=== PATIENT | female | born 1985 | race Caucasian/White ===

== ENCOUNTER → 2018-04-23 15:47 | Outpatient (CLI) | payer OTHER, MEDICAID, SELFPAY ==
[2018-04-23 16:10] LABS: Glucose,1 Hr (Glucola) 166 mg/dL (80-140)
[2018-04-23 16:29] LABS: HCT 37.1 % (36.0-46.0); HGB 12.1 g/dL (12.0-15.5); Mean Corp. HGB Concentration 32.6 g/dL (32.0-36.0); Mean Corpuscular Hemoglobin 29.7 pg (27.0-33.0); Mean Corpuscular Volume 91.2 fL (80-95); Mean Platelet Volume 11.8 fL (8.0-11.0); Platelet Count 240 x1000/uL (130-400); RBC 4.07 m/cumm (4.00-5.20); RBC Distribution Width 12.9 % (11.7-14.6); White Blood Cell Count 8.67 k/cumm (4.4-10.8)
== END ==
PROVIDERS: Obstetrics & Gynecology Gynecology; PCP Internal Medicine; Visit Provider Advanced Practice Midwife
DX: Z34.82 Encounter for supervision of other normal pregnancy, second trimester (principal)
CPT/HCPCS: 36415; 82950; 85027

== ENCOUNTER 2018-04-29 07:46 | Outpatient (CLI) | payer OTHER, MEDICAID, SELFPAY ==
[2018-04-29 09:46] LABS: Glucose 1 Hour 112 mg/dL
[2018-04-29 12:23] LABS: Glucose 3 Hour 73 mg/dL
== END 2018-04-29 07:47 ==
PROVIDERS: PCP Internal Medicine; Visit Provider Advanced Practice Midwife
DX: Z34.93 Encounter for supervision of normal pregnancy, unspecified, third trimester (principal)
CPT/HCPCS: 36410; 82951

== ENCOUNTER 2018-06-07 12:29 | Outpatient (REF) | payer OTHER, MEDICAID, SELFPAY | END 2018-06-07 12:49 | LOC: LBN 12:29 | PROVIDERS: PCP Internal Medicine; Visit Provider Obstetrics & Gynecology Gynecology | DX: Z34.93 Encounter for supervision of normal pregnancy, unspecified, third trimester (principal); Z36.85 Encounter for antenatal screening for Streptococcus B | CPT/HCPCS: 87081 ==

== ENCOUNTER 2018-06-09 13:06 | Observation (INO) | payer OTHER, MEDICAID, SELFPAY ==
[2018-06-09 14:09] LABS: Fetal Fibronectin Negative (Negative)
== END 2018-06-09 14:15 | disposition home or self-care (01) ==
LOC: OBS 13:27
PROVIDERS: Admitting Provider Obstetrics & Gynecology Gynecology; PCP Internal Medicine; Visit Provider Obstetrics & Gynecology Gynecology
DX: O60.03 Preterm labor without delivery, third trimester (principal); Z3A.35 35 weeks gestation of pregnancy
CPT/HCPCS: 82731

== ENCOUNTER 2018-06-22 21:46 | Observation (INO) | payer OTHER, MEDICAID, SELFPAY ==
[2018-06-22 22:43] LABS: HCT 38.8 % (36.0-46.0); HGB 12.8 g/dL (12.0-15.5); Mean Corpuscular Hemoglobin 29.6 pg (27.0-33.0); Mean Corpuscular Volume 89.8 fL (80-95); Mean Platelet Volume 11.9 fL (8.0-11.0); Platelet Count 231 x1000/uL (130-400); RBC 4.32 m/cumm (4.00-5.20); RBC Distribution Width 12.7 % (11.7-14.6); White Blood Cell Count 11.91 k/cumm (4.4-10.8)
== END 2018-06-23 00:45 | disposition home or self-care (01) ==
PROVIDERS: Admitting Provider Obstetrics & Gynecology; PCP Internal Medicine; Visit Provider Obstetrics & Gynecology
DX: O47.03 False labor before 37 completed weeks of gestation, third trimester (principal); Z3A.37 37 weeks gestation of pregnancy
CPT/HCPCS: 85027; 86850; 86900; 86901; G0378

== ENCOUNTER 2018-07-02 20:27 | Inpatient (IN) | payer OTHER, MEDICAID, SELFPAY ==
[2018-07-02] MEDS: Normal Saline Flush 10 ML SYR IVP (21:00)
[2018-07-02 21:05] LABS: HCT 36.3 % (36.0-46.0); HGB 12.1 g/dL (12.0-15.5); Mean Corp. HGB Concentration 33.3 g/dL (32.0-36.0); Mean Corpuscular Volume 90.1 fL (80-95); Mean Platelet Volume 11.9 fL (8.0-11.0); Platelet Count 223 x1000/uL (130-400); RBC 4.03 m/cumm (4.00-5.20); RBC Distribution Width 12.6 % (11.7-14.6)
[2018-07-03] MEDS: Normal Saline Flush 10 ML SYR IVP (05:58)
[2018-07-03] MEDS: Lactated Ringers 1,000 ML 125 ML IV ×3 (05:59→17:28)
[2018-07-03] MEDS: Esomeprazole 20 MG CAPCR PO (15:45)
[2018-07-04] MEDS: Ibuprofen 600 MG TAB PO ×3 (07:03→22:09)
[2018-07-04] MEDS: Acetaminophen 325 MG TAB 650 MG PO ×3 (08:45→22:10)
--- NOTE | 2018-07-04 21:35 | PDOC.ANES ---
Date of service: 07/04/18 Time of Service: 21:35 Anesthesia Note Report Anesthesia Note: Per request of RN caring for patient, at bedside to evaluate epidural site discomfort. Patient noted to have mild bruising at epidural placement site. Patient denies any peripheral weakness or fever. Symptoms include 6/10 discomfort at epidural placement site. Patient provided verbal reassurance and encouraged to rest. Patient verbalized understanding of alerting nurse to any signs of lower extremity weakness. Anesthesia will continue to monitor patient.
[2018-07-05] MEDS: Ibuprofen 600 MG TAB PO ×4 (05:06→23:30)
[2018-07-05] MEDS: Acetaminophen 325 MG TAB 650 MG PO ×4 (05:06→22:33)
[2018-07-05] MEDS: Lidocaine 5% Patch 1 PATCH TP (09:02)
[2018-07-06] MEDS: Ibuprofen 600 MG TAB PO (05:28)
[2018-07-06] MEDS: Acetaminophen 325 MG TAB 650 MG PO (08:03)
== END 2018-07-06 10:25 | disposition home or self-care (01) | DRG 806 ==
PROVIDERS: Admitting Provider Obstetrics & Gynecology Gynecology; PCP Internal Medicine; Visit Provider Obstetrics & Gynecology Gynecology
DX: O69.81X0 Labor and delivery complicated by cord around neck, without compression, not applicable or unspecified (principal); T85.840A Pain due to nervous system prosthetic devices, implants and grafts, initial encounter; Z37.0 Single live birth; Z3A.39 39 weeks gestation of pregnancy; O99.344 Other mental disorders complicating childbirth; F41.8 Other specified anxiety disorders; F31.9 Bipolar disorder, unspecified
CPT/HCPCS: 85027; 86850; 86900; 86901; J3490

== ENCOUNTER 2018-08-19 14:56 | Outpatient (REF) | payer OTHER, MEDICAID, SELFPAY ==
--- NOTE | 2018-08-19 14:20 | ENDO_PTH ---
PATIENT: Solange Nichols LOC: [facility] U#:[id number] AGE/SX: 33/F ROOM: RE08/19/[address]: Anjali Anaya : 1985 BED: DIS: 08/19/2018 SPEC #: [id number] RECD: 08/19/18 17:46 STATUS: EDD REQ #: [id number] ARTI: 08/19/18 14:[address]: Anjali Anaya DEPT: Surgical Specimen RECD BY: Ava Barajas ENTERED: 08/19/18 17:47 SP TYPE: Endo OTHR DR: Sherif Callejas Tissues: 1 - ENDOCERVICAL BX/CURRETTE 2 - CERVICAL BIOPSY Procedures: GROSS AND MICRO LEVEL 4 Comments: [id number]
== END 2018-08-19 15:16 ==
LOC: LBN 14:56
PROVIDERS: PCP Internal Medicine; Visit Provider Obstetrics & Gynecology Gynecology
DX: R87.610 Atypical squamous cells of undetermined significance on cytologic smear of cervix (ASC-US) (principal)
CPT/HCPCS: 88305

== ENCOUNTER 2019-07-11 10:52 | Outpatient (REF) | payer OTHER, MEDICAID, SELFPAY ==
--- NOTE | 2019-07-11 10:00 | PAPFT_PTH ---
PATIENT: Solange Nichols LOC: [facility] U#:[id number] AGE/SX: 34/F ROOM: RE07/11/[address]: Anjali Anaya : 1985 BED: DIS: 07/11/2019 SPEC #: [id number] RECD: 07/11/19 12:56 STATUS: EDD REQ #: [id number] ARTI: 07/11/19 10:[address]: Anjali Anaya DEPT: [facility] Cytology RECD BY: Ava Barajas ENTERED: 07/11/19 12:56 SP TYPE: PAPFT ROMMEL DR: Unknown,Unknown Tissues: 1 - CX/ENDOCX FOR PAP SMEARS Procedures: PAP THIN PREP/UVM Screening HPV DNA PROBE Comments: [id number]
== END 2019-07-11 11:12 ==
LOC: LBN 10:52
PROVIDERS: Visit Provider Obstetrics & Gynecology Gynecology
DX: Z12.4 Encounter for screening for malignant neoplasm of cervix (principal); Z11.51 Encounter for screening for human papillomavirus (HPV)
CPT/HCPCS: 88142; 87624

== ENCOUNTER 2020-01-16 16:20 | Outpatient (REF) | payer OTHER, MEDICAID, SELFPAY ==
[2020-01-17 08:57] LABS: Abs Immature Grans 0.03 k/cumm (0.0-0.09); HCT 40.4 % (36.0-46.0); HGB 13.3 g/dL (12.0-15.5); Mean Corp. HGB Concentration 32.9 g/dL (32.0-36.0); Mean Corpuscular Hemoglobin 29.4 pg (27.0-33.0); Mean Corpuscular Volume 89.4 fL (80-95); Mean Platelet Volume 11.2 fL (8.0-11.0); Platelet Count 334 x1000/uL (130-400); RBC 4.52 m/cumm (4.00-5.20); White Blood Cell Count 8.37 k/cumm (4.4-10.8)
[2020-01-17 09:17] LABS: Absolute Neutrophil Count 4.27 k/cumm (1.2-6.7); Diff Comment Diff Reviewed; RBC Morphology Normal
[2020-01-17 09:18] LABS: Absolute Eosinophil Count 0.67 k/cumm (0.0-0.7); Absolute Lymphocyte Count 2.93 k/cumm (1.2-3.4); Atypical Lymphocytes % 0
[2020-01-17 10:23] LABS: ALT 30 U/L (14-59); AST 15 U/L (15-37); Albumin 3.6 g/dL (3.4-5.0); Alkaline Phosphatase 110 U/L (46-116); BUN 13 mg/dL (7-18); Bilirubin, Total 0.2 mg/dL (0.2-1.0); CREATININE 0.96 mg/dL (0.55-1.02); Calcium 9.4 mg/dL (8.5-10.1); Chloride 102 mmol/L (98-107); Glucose 85 mg/dL (74-106); Sodium 139 mmol/L (136-145); TSH (W/Ref FT4) 2.16 uIU/mL (0.36-3.74); Total Protein 7.1 g/dL (6.4-8.2); Vitamin B12 530 pg/mL (193-986)
[2020-01-17 21:10] LABS: Lipase 181 U/L (73-393)
[2020-01-19 06:46] LABS: Vitamin D 25 Total 29.7 ng/ml (30-100)
== END 2020-01-16 16:40 ==
LOC: NCHCN 16:20
PROVIDERS: Visit Provider Internal Medicine
DX: F31.9 Bipolar disorder, unspecified (principal); F43.10 Post-traumatic stress disorder, unspecified; R41.840 Attention and concentration deficit; E66.9 Obesity, unspecified; Z68.41 Body mass index [BMI] 40.0-44.9, adult; R10.11 Right upper quadrant pain; R19.7 Diarrhea, unspecified
CPT/HCPCS: 80053; 82306; 83690; 82607; 84443; 85025

== ENCOUNTER 2020-01-17 10:21 | Outpatient (REF) | payer OTHER, MEDICAID, SELFPAY ==
[2020-01-19 10:46] LABS: Campylobacter PCR Negative (Negative); Salmonella PCR Negative (Negative); Shiga Toxin PCR Negative (Negative); Shigella/Enteroinvasive Ecoli Negative (Negative)
== END 2020-01-17 10:41 ==
LOC: NCHCN 10:21
PROVIDERS: PCP Nurse Practitioner Family; Visit Provider Internal Medicine
DX: R19.7 Diarrhea, unspecified (principal); R10.11 Right upper quadrant pain
CPT/HCPCS: 87505; 82272; 83630; 87324

== ENCOUNTER 2020-01-24 00:30 | Outpatient (CLI) | payer OTHER, MEDICAID, SELFPAY ==
--- NOTE | 2020-01-24 09:18 | DI.US_ITS ---
EXAM: US ABDOMEN CLINICAL HISTORY: RUQ ABD PAIN, R10.11 TECHNIQUE: Ultrasound abdomen performed using standard protocol. COMPARISON: No exams were available for comparison FINDINGS: ABDOMINAL AORTA AND IVC: Visualized portions normal caliber. PANCREAS: Normal where visualized. LIVER: Mildly enlarged. There is mildly increased echogenicity, consistent with mild hepatic steatos is.. Hepatopedal flow in the Portal Vein. GALLBLADDER: There are a few tiny mobile stones.. No evidence of wall thickening. No pericholecystic fluid identified. BILIARY SYSTEM: Common bile duct measures 3 mm. No intrahepatic biliary ductal dilation. PAZ'S SIGN: Negative. KIDNEYS: Kidneys are symmetric in size. No evidence of renal calculi. No evidence of hydronephrosis. No renal mass or cyst identified. SPLEEN: Not enlarged. ASCITES: None seen. IMPRESSION: Mild hepatic steatosis. Cholelithiasis.. DATA REPOSITORY:
== END 2020-01-24 00:50 ==
PROVIDERS: PCP Nurse Practitioner Family; Visit Provider Internal Medicine
DX: R10.11 Right upper quadrant pain (principal); K80.20 Calculus of gallbladder without cholecystitis without obstruction; K76.0 Fatty (change of) liver, not elsewhere classified
CPT/HCPCS: 76700

== ENCOUNTER 2020-02-03 07:55 | Outpatient (CLI) | payer OTHER, MEDICAID, SELFPAY ==
[2020-02-04 14:14] LABS: COVID-19 RT-PCR UVMMC Result Negative (Negative)
== END 2020-02-03 08:15 ==
PROVIDERS: PCP Nurse Practitioner Family; Visit Provider Surgery
DX: Z11.59 Encounter for screening for other viral diseases (principal); Z01.818 Encounter for other preprocedural examination
CPT/HCPCS: U0003

== ENCOUNTER 2020-02-07 06:12 | Day surgery (SDC) | payer OTHER, MEDICAID, SELFPAY ==
[2020-02-07] VITALS (12 sets, daily range): BP systolic 111–148; BP diastolic 52–75; PULSE 64–89; RESP 10–29; TEMP 36.2–36.6; O2SAT 92–100
[2020-02-07] MEDS: Lactated Ringers 1,000 ML 80 ML IV (06:50)
--- NOTE | 2020-02-07 07:31 | PDOC.DSDIS_ITS ---
Discharge Plan Disposition Patient Disposition: HOME Condition: Good Discharge Details Reason For Visit: Laparoscopic cholecystectomy Attending Provider: Daniela Patino Primary Care Provider: Destiney Alexander Home Meds and New Rx's Prescriptions: New hydrocodone-acetaminophen 5-325 mg Tablet 1 - 2 tab PO Q4H PRN (Reason: Pain) Qty: 15 RF: 0 Continued lamotrigine 100 mg tablet 150 mg PO DAILY RF: 0 olanzapine 5 mg tablet 5 mg PO QHS RF: 0 alprazolam [Xanax] 0.5 mg tablet 0.25 mg PO QHS PRNRF: 0 melatonin 5 mg capsule 5 mg PO PRNRF: 0 valacyclovir 500 mg tablet 500 mg PO BID Qty: 6 RF: 6 bupropion HCl [Wellbutrin XL] 300 mg tablet extended release 24 hr 300 mg PO QPM RF: 0 Discharge Instructions Additional Instructions: The top bandage can be removed tomorrow. The steri strips will usually stick for about a week. When the edges start to curl up, they can be removed. It is okay to shower tomorrow, the water can run over the steri strips Do not swim or soak in a tub for two weeks Call for any concerns including fever, increased pain, vomiting, incision redness or drainage. Do not lift more than 15 pounds for two weeks. Walking and stairs are fine. Do not drive if on narcotic pain meds or if limited by pain. May use Tylenol alternating with ibuprofen for pain control. Ice is also an option. The maximum dose for Tylenol is 4000 mg/day. May use ibuprofen 800 mg every 8 hours as needed. If you are taking narcotics, do not take your Xanax at the same time. If concerned about constipation, you may use a stool softener or milk of magnesia. Referrals: Daniela Patino MD [ [facility] STAFF PHYSICIAN] - (Return in 10-14 days for a postop check) Activity:: Do not lift more than 15 pounds Remove Dressings/Wound Care:: 24 hours Shower/Bathe:: 24 hours Diet:: Low fat for two weeks Discharge Orders Discharge Orders: Discharge Order (Routine); Ordered 02/07/20 Ordered By: Daniela Patino DS: Diagnosis Discharge Diagnosis (1) Cholelithiasis: Status: Acute
[2020-02-07] MEDS: ceFAZolin 2 GM/50 ML BAG IVPB (07:33)
[2020-02-07] MEDS: Bupivacaine 0.5% Pres-Free 30 ML VIAL (08:10)
--- NOTE | 2020-02-07 08:29 | GB_PTH ---
PATIENT: Solange Nichols LOC: [facility] U#:[id number] AGE/SX: 34/F ROOM: RE02/07/[address]: Daniela Patino MD : 1985 BED: DIS: 02/07/2020 SPEC #: [id number] RECD: 02/07/20 12:10 STATUS: EDD REQ #: [id number] ARTI: 02/07/20 08:[address]: Daniela Patino DEPT: Surgical Specimen RECD BY: Ava Barajas ENTERED: 02/07/20 12:11 SP TYPE: GB OTHR DR: Destiney Alexander Tissues: 1 - GALLBLADDER Procedures: GROSS AND MICRO LEVEL 3 Comments: [id number]
--- NOTE | 2020-02-07 08:47 | W.PM.OP ---
Date of service: 02/07/20 Time of Service: 08:47 Operative Note Operative Note DATE OF PROCEDURE: 02/07/20 PRE-OP DIAGNOSIS: Symptomatic cholelithiasis POST-OP DIAGNOSIS: same PROCEDURE: Laparoscopic cholecystectomy SURGEON: Daniela Patino PCI SECURITY CONSULTANT: Dedra Connell ANESTHESIA: GETA and local Patient was transported to: PACU Patient's condition: stable Indications: This patient complains of RUQ pain and has an US showing gallstones. Procedure Description: The patient was placed supine on the operative table and after induction of general anesthetic was prepped and draped sterilely. A 5 mm incision was made to the left of the umbilicus after injecting local anesthetic and the abdomen entered under direct visualization. A CO2 pneumoperitoneum was begun and she was placed in reverse Trendelenberg position. The epigastric and 2 lateral ports were placed under direct visualization after injecting local anesthetic. The gallbladder did not appear acutely inflamed. There were no visible liver abnormalities. The gallbladder fundus was grasped and pulled up over the liver. The gallbladder infundibulum was retracted laterally and the peritoneum overlying the triangle of Calot dissected free with hook cautery. The cystic duct and artery were isolated and visualized going directly onto the gallbladder. The common bile duct was visualized and avoided. The cystic duct was not dilated and had no stones palpated within it. The cystic duct was clipped twice distally and once proximally and divided. The artery was clipped twice proximally, once distally and divided. The gallbladder was dissected off the liver bed with hook cautery and removed through the epigastric incision in an Endo Catch bag. The operative site was inspected with no evidence of bleeding or bile leak. A few small vascular branches in the gallbladder fossa were clipped. The CO2 was released and then the ports removed with no evidence of bleeding. The skin of the port sites was then closed with a 4-0 Monocryl subcuticular stitch. She tolerated the procedure well and was stable to recovery
[2020-02-07] MEDS: fentaNYL 100 MCG/2 ML VIAL IVP ×2 (09:08→09:21)
[2020-02-07] MEDS: HYDROmorphone 2 MG/ML VIAL IVP ×3 (09:32→10:10)
[2020-02-07] MEDS: HYDROcodone 5/Acetaminophen 325 TAB PO (11:17)
== END 2020-02-07 12:20 | disposition home or self-care (01) ==
PROVIDERS: PCP Nurse Practitioner Family; Visit Provider Surgery
PROC: 0FT44ZZ Resection of Gallbladder, Percutaneous Endoscopic Approach (ICD-10-PCS; CPT 47563; principal; 2020-02-07 07:30)
DX: K81.1 Chronic cholecystitis (principal)
CPT/HCPCS: 47562; 81025; 88304; J0690; J1100; J1885; J2001; J2405; J3010

== ENCOUNTER 2020-02-10 11:00 | Emergency (ER) | payer OTHER, MEDICAID, SELFPAY ==
[2020-02-10 11:05] VITALS: BP 147/81; PULSE 86; RESP 16; TEMP 36.3; O2SAT 98
[2020-02-10] MEDS: Normal Saline 1,000 ML 1000 ML IV (11:15)
[2020-02-10] MEDS: Ondansetron 4 MG/2 ML VIAL IVP (11:16)
--- NOTE | 2020-02-10 11:18 | ED.GENADUL_ITS ---
Discharge Plan Disposition Patient Disposition: HOME Condition: Stable Discharge Details Chief Complaint: Abd Prob Clinical Impression: Abdominal pain, Post-op pain Primary Care Provider: Destiney Alexander ED Provider: Guerrero Lala Home Meds and New Rx's Prescriptions: New lidocaine 5 % adhesive patch,medicated 1 patch TP DAILY Qty: 30 RF: 0 Continued lamotrigine 100 mg tablet 150 mg PO DAILY RF: 0 olanzapine 5 mg tablet 5 mg PO QHS RF: 0 alprazolam [Xanax] 0.5 mg tablet 0.25 mg PO QHS PRNRF: 0 melatonin 5 mg capsule 5 mg PO PRNRF: 0 valacyclovir 500 mg tablet 500 mg PO BID Qty: 6 RF: 6 bupropion HCl [Wellbutrin XL] 300 mg tablet extended release 24 hr 300 mg PO QPM RF: 0 hydrocodone-acetaminophen 5-325 mg Tablet 1 - 2 tab PO Q4H PRN (Reason: Pain) Qty: 15 RF: 0 Discharge Instructions Additional Instructions: Your blood work and cat scan did not show any concerning findings if you have severe worsening pain, fevers or persistent vomit return to the emergency department follow up as scheduled with Dr. Patino Medical Decision Making 34 yo female with hx of cholecystectomy this past Thursday comes in with abdominal pain starting about an hour ago. She localizes the pain to the right upper and lower abdomen, denies vomit or fevers, no chest pain or dyspnea. She has tenderness on exam in rlq and ruq, no left sided abdominal pain. Suspect bile leak will obtain lab work and imaging to further evaluate labs and imaging negative other than mild dilation of proximal jejunum that could be enteritis. Discussed with Dr. martinez and preeti toradol and lidocaine patch and f/u with them as outpatient. Patient still with no guarding, has mild ruq pain. Return precautions given Differential Diagnosis Differential Diagnosis: bile leak, pancreatitis, post op pain Medical Records Medical records reviewed: Yes I reviewed the patient's medical records. Imaging Data Radiologic Study: Attestation: I personally reviewed and interpreted this imaging study as follows: Imaging: CT Scan Radiologist's impression: IMPRESSION: 1. Status post cholecystectomy. No focal fluid collection is seen in the gallbladder fossa. No biliary ductal dilatation. 2. Mild dilatation of the proximal jejunum with mild bowel wall thickening which may represent a mild enteritis. 3. Findings were discussed with the emergency department on the date of the examination. Lab Data Lab results reviewed: Yes I reviewed the patient's lab results. HPI General Mode of arrival: ambulatory . Date/Time Provider Initiated Documentation: 02/10/20 11:03 . Limitations to Documentation: no limitations . Information obtained by: patient . History of Present Illness 34 year old F presents to the emergency department with the chief complaint of abdominal pain, described as moderate and severe, with intensity rated at 9. Quality is described as sharp, and is localized to the abdomen. Patient reports no radiation. Patient started experiencing this hour(s) (1) and it has been constant. No relieving factors improve symptom(s), No exacerbating factors reported . Patient did receive the following treatments prior to arrival, none Related Data Home Medications Medication Instructions Recorded Confirmed valacyclovir 500 mg tablet 500 mg PO BID #6 tab 01/03/19 02/07/20 alprazolam 0.5 mg tablet 0.25 mg PO QHS PRN tab 01/27/20 02/07/20 lamotrigine 100 mg tablet 150 mg PO DAILY 01/27/20 02/07/20 melatonin 5 mg capsule 5 mg PO PRN cap 01/27/20 01/27/20 olanzapine 5 mg tablet 5 mg PO QHS 01/27/20 02/07/20 bupropion HCl [Wellbutrin XL] 300 mg PO QPM 02/03/20 02/07/20 hydrocodone-acetaminophen 1 - 2 tab PO Q4H PRN #15 tab 02/07/20 lidocaine 1 patch TP DAILY #30 each 02/10/20 Previous Rx's Medication Instructions Recorded valacyclovir 500 mg tablet 500 mg PO BID #6 tab 01/03/19 hydrocodone-acetaminophen 1 - 2 tab PO Q4H PRN #15 tab 02/07/20 lidocaine 1 patch TP DAILY #30 each 02/10/20 Allergies Allergy/AdvReac Type Severity Reaction Status Date / Time prochlorperazine edisylate AdvReac SHAKES/COLD Unverified 02/07/20 06:24 [From Compazine] SWEATS General Stated Complaint: Abd Prob MARCO: 3 Review of Systems All systems reviewed & are unremarkable except as noted in HPI and below Constitutional Constitutional: Denies chills, Denies fever(s) and Denies weakness Cardiovascular Cardiovascular: Denies chest pain and Denies dyspnea Respiratory Respiratory: Denies cough and Denies dyspnea Gastrointestinal Gastrointestinal: Denies vomiting Musculoskeletal Musculoskeletal: Denies joint swelling Neurologic Neurologic: Denies weakness PFS Surgical History (Updated 02/07/20 @ 06:27 by Marjorie Gautam) Endoscopy S/P laparoscopy (Acute) pt. 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 Pets and animals: Yes (dog) Pets and animals: dog(s) Do you feel safe at home: Yes Do you feel safe in your relationship?: Yes Female Reproductive History Menstrual control method: other (pt is unsure of plans for contraception after delivery.) History History 9 Para 3 Hx # Term Pregnancies 4 Multiple births 0 Hx # Pregnancies 0 Ectopic pregnancies 0 AB induced Hx Number of Living Children 4 AB spontaneous Past Pregnancies Del. Date GA/Weeks # Outcome Route Wgt Sex Labor Lgth Anesthes ia Location [facility] 07/03/18 39 No Successful vaginal 3.402 kg Female Delivery Date: 07/03/18 without complications. Patient had an epidural. Infant's name is spelled Anjali Cline Exam Const General: no acute distress Orientation: alert HENMT Head: normal to inspection Ears: external ears normal General nose exam: external nose normal Mouth: moist mucous membranes Eyes General: appearance normal, both eyes and all related structures Neck Neck: normal visual inspection Resp Effort & Inspection: normal respiratory effort and able to speak in complete sentences Cardio Rate: regular rate GI Palpation: soft Skin General skin exam: no rashes or lesions noted Neuro General: patient alert and patient oriented x3 Extrem General: normal to inspection Psych Mental Status: mental status grossly normal Course Vital Signs Vital signs: Vital Signs Temperature 36.3 C L 02/10/20 11:05 Pulse 86 02/10/20 11:05 Respiratory Rate 16 02/10/20 11:05 Blood Pressure 147/81 H 02/10/20 11:05 Pulse Oximetry 98 02/10/20 11:05 Temperature 36.3 C L 02/10/20 11:05 Temperature Source Tympanic 02/10/20 11:05 Pulse 86 02/10/20 11:05 Respiratory Rate 16 02/10/20 11:05 Respiratory Effort Non-Labored 02/10/20 11:08 Blood Pressure 147/81 H 02/10/20 11:05 Blood Pressure Position Sitting 02/10/20 11:05 Pulse Oximetry 98 02/10/20 11:05 Oxygen Delivery Method Room Air 02/10/20 11:05 Oxygen Flow Rate 0 02/10/20 11:05 Pain Level 7 02/10/20 11:05
[2020-02-10 11:27] LABS: Abs Immature Grans 0.02 k/cumm (0.0-0.09); Absolute Basophil Count 0.01 k/cumm (0.0-0.2); Absolute Eosinophil Count 0.25 k/cumm (0.0-0.7); Absolute Lymphocyte Count 3.88 k/cumm (1.2-3.4); Absolute Monocyte Count 0.98 k/cumm (0.11-0.7); Absolute Neutrophil Count 4.82 k/cumm (1.2-6.7); Basophils % 0.1; Eosinophils % 2.5; HCT 41.5 % (36.0-46.0); HGB 13.7 g/dL (12.0-15.5); Immature Grans % 0.2 %; Mean Corpuscular Hemoglobin 29.3 pg (27.0-33.0); Mean Corpuscular Volume 88.7 fL (80-95); Mean Platelet Volume 10.2 fL (8.0-11.0); Monocytes % 9.8; Neutrophils % 48.4; Platelet Count 339 x1000/uL (130-400); RBC 4.68 m/cumm (4.00-5.20); RBC Distribution Width 12.6 % (11.7-14.6); White Blood Cell Count 9.96 k/cumm (4.4-10.8)
[2020-02-10 11:50] LABS: ALT 49 U/L (14-59); AST 16 U/L (15-37); Albumin 3.8 g/dL (3.4-5.0); Alkaline Phosphatase 90 U/L (46-116); Anion Gap 9.8 mmol/L (3-11); BUN 14 mg/dL (7-18); Bilirubin, Direct 0.08 mg/dL (0.00-0.20); Bilirubin, Total 0.3 mg/dL (0.2-1.0); CO2 25.2 mmol/L (21.0-32.0); CREATININE 0.95 mg/dL (0.55-1.02); Chloride 101 mmol/L (98-107); Glucose 86 mg/dL (74-106); Lipase 102 U/L (73-393); Potassium 4.2 mmol/L (3.5-5.1); Sodium 136 mmol/L (136-145); Total Protein 7.6 g/dL (6.4-8.2)
[2020-02-10] MEDS: Omnipaque 350 MG/ML 100 ML BTL IJ (12:04)
--- NOTE | 2020-02-10 12:10 | DI.CT_ITS ---
EXAM: CT ABDOMEN PELVIS W CLINICAL HISTORY: abdominal pain s/p cholecystecomy TECHNIQUE: Imaging Protocol: Axial computed tomography images with coronal and sagittal reformatted images were created and reviewed CONTRAST MATERIAL: Intravenous: Omnipaque 350 Contrast volume:100 mL Oral: No COMPARISON: US US ABDOMEN from 01/24/2020 FINDINGS: Patient motion artifact ABDOMEN: Lung Bases: Normal where visualized. Liver: Normal density. No measurable mass. Portal, Superior Mesenteric, and Splenic Veins: Unremarkable. Gallbladder and Biliary Tract: Status post cholecystectomy. No biliary ductal dilatation. Pancreas: Normal density, no abnormal calcifications or inflammatory process. Spleen: Normal. Adrenals: No masses seen. Kidneys: Normal size, contour and axis. No radiodense stones or obstructive uropathy. No masses seen. Abdominal Aorta: Abdominal portion non-dilated. Bowel: Mild dilatation of the proximal jejunum with mild bowel wall thickening. Remainder of the bow el is unremarkable. Appendix is unremarkable. Peritoneal Cavity: No ascites, collection or mesenteric inflammatory response. Lymph Nodes: Within normal limits. Bones: No acute abnormality. Soft Tissues: Unremarkable. PELVIS: Bladder: Symmetric distention, no gross wall thickening. Reproductive Organs: Unremarkable as visualized. Lymph Nodes: Within normal limits. Bones: Within normal limits. IMPRESSION: 1. Status post cholecystectomy. No focal fluid collection is seen in the gallbladder fossa. No bili mimi ductal dilatation. 2. Mild dilatation of the proximal jejunum with mild bowel wall thickening which may represent a mild enteritis. 3. Findings were discussed with the emergency department on the date of the examination. RADIATION DOSE DELIVERED: 1,311.02mGy.cm Total DLP DATA REPOSITORY: All CT scans at this facility are submitted to the National Radiology Data Registry (NRDR) Dose Index Registry (DIR) with the [employer] ([employer]). RADIATION OPTIMIZATION: All CT scans at this facility use at least one of these dose optimization te chniques: automated exposure control; mA and/or kV adjustment per patient size (includes targeted exa ms where dose is matched to clinical indication); or iterative reconstruction.
[2020-02-10 12:25] LABS: Bilirubin Negative (Negative); Blood Negative (Negative); Clarity Clear (Clear); Glucose Negative (Negative); Ketones Negative (Negative); Leukocyte Esterase Negative (Negative); Nitrite Negative (Negative); Specific Gravity <= 1.005 (1.005-1.025); Urobilinogen 0.2 EU/dL (Up TO 0.2)
[2020-02-10] MEDS: Ketorolac 30 MG/ML VIAL IM (12:35)
[2020-02-10 12:43] VITALS: BP 133/73; PULSE 69; RESP 17; TEMP 36.4; O2SAT 100
== END 2020-02-10 12:45 | disposition home or self-care (01) ==
PROVIDERS: Emergency Provider Emergency Medicine; PCP Nurse Practitioner Family
DX: R10.11 Right upper quadrant pain (principal); G89.18 Other acute postprocedural pain; R10.31 Right lower quadrant pain; Y83.6 Removal of other organ (partial) (total) as the cause of abnormal reaction of the patient, or of later complication, without mention of misadventure at the time of the procedure; Z90.49 Acquired absence of other specified parts of digestive tract
CPT/HCPCS: 36415; 80053; 81025; 83690; 96361; 96372; 96374; 96375; 96376; 99285; 74177; 81003; 82248; 85025; J1885; J2405; J3490

== ENCOUNTER 2020-05-23 13:22 | Outpatient (REF) | payer OTHER, MEDICAID, SELFPAY ==
[2020-05-26 13:38] LABS: Patient Race White; SARS-CoV-2 RNA Undetected (Undetected); SARS-CoV-2 Specimen Source Nasopharynx
== END 2020-05-23 13:42 ==
LOC: NCHCN 13:22
PROVIDERS: PCP Nurse Practitioner Family; Visit Provider Family Medicine
DX: Z20.828 Contact with and (suspected) exposure to other viral communicable diseases (principal)
CPT/HCPCS: U0003

== ENCOUNTER 2020-07-02 08:15 | Emergency (ER) | payer OTHER, MEDICAID, SELFPAY ==
[2020-07-02 08:18] VITALS: BP 121/79; PULSE 87; RESP 16; TEMP 36.7; O2SAT 97
--- NOTE | 2020-07-02 08:45 | DI.RAD_ITS ---
EXAM: XR TIB/FIB LT and XR ankle LT complete CLINICAL HISTORY: trauma, pain over proximal fibula. TECHNIQUE: 2D digital imaging was performed COMPARISON: No previous for comparison FINDINGS: BONES: No acute fracture is present. No bony destructive lesion is seen. Visualized portion of knee a nd ankle joints are unremarkable. Tiny well corticated osseous densities are seen in the dorsal aspe ct of the talus on the lateral view of the ankle. These likely are old. The ankle mortise is intact . SOFT TISSUE: Normal. IMPRESSION: No acute fracture or dislocation of the left tibia fibula or left ankle. DATA REPOSITORY: RADIATION DOSE DELIVERED:
--- NOTE | 2020-07-02 08:49 | ED.GENADUL_ITS ---
Discharge Plan Disposition Patient Disposition: HOME Condition: Stable Discharge Details Clinical Impression: Ankle injury Primary Care Provider: Destiney Alexander ED Provider: Jadyn Braun Home Meds and New Rx's Prescriptions: Continued lamotrigine 100 mg tablet 200 mg PO DAILY RF: 0 olanzapine 5 mg tablet 5 mg PO QHS RF: 0 alprazolam [Xanax] 0.5 mg tablet 0.25 mg PO QHS PRNRF: 0 melatonin 5 mg capsule 5 mg PO HS RF: 0 bupropion HCl [Wellbutrin XL] 300 mg tablet extended release 24 hr 300 mg PO QPM RF: 0 Discharge Instructions Instructions: Ankle Sprain (ED) Additional Instructions: Please return immediately to the emergency department if you develop any new or worsening symptoms, if your condition does not improve as expected, or if you become otherwise concerned. It is extremely important that you call soon as possible to make an appointment to be seen in follow-up for this visit by your primary care doctor. Referrals: Destiney Alexander [Primary Care Provider] - Discharge Data Discharge Date/Time-TO BE ENTERED AT DEPARTURE: 07/02/20 10:23 Medical Decision Making Solange Nichols is a 35 y/o woman who presented to the emergency department with left ankle pain after injury. On exam Pt is well and non-toxic appearing. Left lateral malleolus and prox fib TTP. Left foot neurovascularly intact. Concern for ankle fx vs sprain, possible maisonneuve. Exam/hx at this time not c/w other fracture of the left lower ext, vascular injury, infectious process, other emergent life/limb threatening condition. Plan for xrays. ankle and tib/fib xrays negative. Plan for ankle brace, crutches. I had a lengthy discussion with Patient regarding return to emergency department precautions, home care, and importance of outpatient follow-up. Pt verbalizes understanding of the plan and is amenable. Patient discharged to home with clear plan for outpatient follow-up. All questions were answered. Disposition decision was made weighing the risks and benefits of hospitalization versus outpatient treatment, the risk for further decompensation, and the patient's wishes. Medical Records Medical records reviewed: Yes I reviewed the patient's medical records. Imaging Data Radiologic Study: Attestation: I personally reviewed and interpreted this imaging study as follows: Radiologist's impression: EXAM: XR TIB/FIB LT and XR ankle LT complete CLINICAL HISTORY: trauma, pain over proximal fibula. TECHNIQUE: 2D digital imaging was performed COMPARISON: No previous for comparison FINDINGS: BONES: No acute fracture is present. No bony destructive lesion is seen. Visualized portion of knee and ankle joints are unremarkable. Tiny well corticated osseous densities are seen in the dorsal aspect of the talus on the lateral view of the ankle. These likely are old. The ankle mortise is intact. SOFT TISSUE: Normal. IMPRESSION: No acute fracture or dislocation of the left tibia fibula or left ankle. HPI General Mode of arrival: ambulatory . Date/Time Provider Initiated Documentation: 07/02/20 08:43 . Limitations to Documentation: no limitations . Information obtained by: patient, RN notes reviewed and old records reviewed . HPI Narrative: Solange Nichols is a 35-year-old woman with history of anxiety, bipolar presenting to the emergency department with ankle pain. Patient reports that 2 days ago patient was walking when she stepped from a stone step onto gravel, and twisted her left ankle. Patient reports that she fell to the ground but did not hit her head. She denies any loss of consciousness or any apparent injury other than to left ankle. Patient reports that she has been walking on the left leg since the injury, and has pain in the left lateral ankle radiating into the proximal lateral lower leg with walking. She denies any other pain, fever, cough, shortness of breath, vomiting, diarrhea, numbness, weakness, rash. Patient states that she had no symptoms preceding the accident, states fall was mechanical. Related Data Home Medications Medication Instructions Recorded Confirmed alprazolam 0.5 mg tablet 0.25 mg PO QHS PRN tab 01/27/20 07/02/20 lamotrigine 100 mg tablet 200 mg PO DAILY 01/27/20 07/02/20 melatonin 5 mg capsule 5 mg PO HS cap 01/27/20 07/02/20 olanzapine 5 mg tablet 5 mg PO QHS 01/27/20 07/02/20 bupropion HCl [Wellbutrin XL] 300 mg PO QPM 02/03/20 07/02/20 Allergies Allergy/AdvReac Type Severity Reaction Status Date / Time prochlorperazine edisylate AdvReac SHAKES/COLD Unverified 07/02/20 08:27 [From Compazine] SWEATS General Stated Complaint: Orthopedic MARCO: 4 Review of Systems Narrative: Constitutional: denies fevers Eyes: denies eye pain ENT: denies ear pain, dental pain, sore throat Cardiovascular: denies chest pain, edema Respiratory: denies SOB, cough GI: denies abdominal pain, vomiting, diarrhea : denies flank pain MSK: denies back pain, neck pain, myalgias, reports left ankle pain as per HPI Skin: denies rash Neuro: denies headaches, numbness, weakness PFSH Medical History Abdominal pain ASCUS with positive high risk HPV cervical Screening pap at time of . Colpo 08/19/2018 benign. Recommend Pa p/HPV in 1 year. Bipolar 1 disorder anxiety component. Patient referred to psychiatry for consultation regarding medications Contraception 03/05/20 changed from monthly menses to q3mo menses. History of gallstones seen on US Hx of opioid abuse None x5yrs. Metrorrhagia 01/27/20 per note from PCP,stopped control pills 2 weeks ago Right upper quadrant pain Watery diarrhea Surgical History (Updated 02/07/20 @ 06:27 by Marjorie Gautam) Endoscopy S/P laparoscopy pt. questions this Family History Mother Mental disorder depression Father Diabetes IDDM Sister Mental disorder depression Sister No problems noted. Brother No problems noted. Brother No problems noted. 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 Pets and animals: Yes (dog) Pets and animals: dog(s) Do you feel safe at home: Yes Do you feel safe in your relationship?: Yes Female Reproductive History Menstrual control method: other (pt is unsure of plans for contraception after delivery.) History History 9 Para 3 Hx # Term Pregnancies 4 Multiple births 0 Hx # Pregnancies 0 Ectopic pregnancies 0 AB induced Hx Number of Living Children 4 AB spontaneous Past Pregnancies Del. Date GA/Weeks # Outcome Route Wgt Sex Labor Lgth Anesthes ia Location Prov Complic 07/03/18 39 No Successful vaginal 3401.943 g Female Delivery Date: 07/03/18 without complications. Patient had an epidural. Infant's name is spelled Viki. Anjali Anaya Exam Narrative Exam Narrative: Constitutional: well and [id number], pleasant, conversing normally HENT: head atraumatic/normocephalic/normal inspection, mucous membranes moist Eyes: conjunctiva normal, sclera normal, pupils 3mm b/l Neck: no stridor, normal ROM, trachea midline Resp: normal work of breathing, speaking in full sentences Cardio: normal rate, normal rhythm Skin: warm, dry, normal color, no rash Neuro: alert, not altered, grossly non-focal, normal tone Ext: mild edema left lateral ankle, left lateral malleolus TTP, right mallelus, calcaneous, foot NTTP, left prox fibula mildly TTP, normal ROM left toes/left knee, ROM left ankle limited 2/2 pain DP pulse intact and symmetric, normal sensation/cap refill left toes and left foot Psych: normal mood, normal affect, normal behavior Course Vital Signs Vital signs: Vital Signs Temperature 36.7 C 07/02/20 08:18 Pulse 87 07/02/20 08:18 Respiratory Rate 16 07/02/20 08:18 Blood Pressure 121/79 07/02/20 08:18 Pulse Oximetry 97 07/02/20 08:18 Temperature 36.7 C 07/02/20 08:18 Temperature Source Skin 07/02/20 08:18 Pulse 87 07/02/20 08:18 Respiratory Rate 16 07/02/20 08:18 Respiratory Effort 07/02/20 08:31 Blood Pressure 121/79 07/02/20 08:18 Pulse Oximetry 97 07/02/20 08:18 Oxygen Delivery Method Room Air 07/02/20 08:18 Oxygen Flow Rate 0 07/02/20 08:18 Pain Level 7 07/02/20 08:25 Comment pt not on control but not attempting 07/02/20 08:18
[2020-07-02 10:16] VITALS: BP 121/81; PULSE 93; RESP 18; TEMP 36.7; O2SAT 96
== END 2020-07-02 10:23 | disposition home or self-care (01) ==
PROVIDERS: Emergency Provider Student in an Organized Health Care Education/Training Program; PCP Nurse Practitioner Family
DX: S99.912A Unspecified injury of left ankle, initial encounter (principal); X50.9XXA Other and unspecified overexertion or strenuous movements or postures, initial encounter
CPT/HCPCS: 29515; 81025; 99284; 73590; 73610; 99283; E0114; L1902

== ENCOUNTER 2020-09-20 13:51 | Outpatient (REF) | payer OTHER, MEDICAID, SELFPAY ==
[2020-09-20 14:22] LABS: ALT 29 U/L (14-59); AST 13 U/L (15-37); BUN 8 mg/dL (7-18); CREATININE 0.94 mg/dL (0.55-1.02); Calcium 9.3 mg/dL (8.5-10.1); Calculated LDL 91 mg/dL (<100); Chloride 104 mmol/L (98-107); Cholesterol 154 mg/dL (<200); Glucose 89 mg/dL (74-106); HDL Cholesterol 45 mg/dL (40-60); Potassium 4.3 mmol/L (3.5-5.1); Sodium 140 mmol/L (136-145); Triglyceride 94 mg/dL (<150)
== END 2020-09-20 14:11 ==
LOC: NCHCN 13:51
PROVIDERS: PCP Nurse Practitioner Family; Visit Provider Nurse Practitioner Family
DX: Z00.00 Encounter for general adult medical examination without abnormal findings (principal); F31.9 Bipolar disorder, unspecified; Z13.220 Encounter for screening for lipoid disorders
CPT/HCPCS: 80048; 80061; 84450; 84460

== ENCOUNTER 2021-07-08 18:20 | Emergency (ER) | payer MEDICAID, SELFPAY ==
[2021-07-08 18:28] VITALS: BP 147/93; PULSE 96; RESP 18; TEMP 36.8; O2SAT 99
--- NOTE | 2021-07-08 19:18 | ED.GENADUL_ITS ---
Discharge Plan Disposition Patient Disposition: HOME Condition: Stable Discharge Details Clinical Impression: COVID-19, Pain in right leg Primary Care Provider: Destinye Alexander ED Provider: Jazmine Thomas Home Meds and New Rx's Prescriptions: Continued melatonin 5 mg capsule 5 mg PO HS RF: 0 multivitamin Tablet 1 tab PO DAILY RF: 0 bupropion HCl [Wellbutrin XL] 300 mg tablet extended release 24 hr 300 mg PO QPM RF: 0 No Action lamotrigine 100 mg tablet 200 mg PO DAILY RF: 0 Vyvanse 30 mg capsule 30 mg PO DAILY RF: 0 Discharge Instructions Instructions: Albuterol (By breathing), Leg Pain (ED), COVID-19 (Coronavirus Disease 2019) (ED) Additional Instructions: The diagnostic imaging department will call you for an appointment for the ultrasound of your right lower extremity. You may return to the emergency department for results Or receive your results from primary care provider. Use the albuterol inhaler 1 or 2 puffs every 4-6 hours as needed for shortness of breath and wheezing. Please increase oral fluids, take vitamin such as zinc and vitamin C, and vitamin D3 daily. Please take Tylenol or Ibuprofen with food every 4-6 hours as needed for pain and swelling. Follow up with primary care provider in 3-5 days. Return to ED sooner if any worsening chest pain, shortness of breath, coughing up yellow, fever greater than 102 not relieved by Tylenol ibuprofen, or concerns. Increase oral fluids. Continue to quarantine and wear a mask. Stand Alone Forms: POSITIVE COVID-19/NO TESTING Referrals: Destiney Alexander [Primary Care Provider] - 2 weeks Medical Decision Making 36-year-old female presents to the ER with chief complaint of cough, body aches, loss of taste and smell and low O2 sat from a home oximeter prior to arrival. Patient reports that she was given a pulse oximeter by a friend after being diagnosed via home test on Thursday with COVID-19. Patient reports that she did have a PCR swab done today which is pending at this time. She reports that her whole household has Covid. She states that symptoms started yesterday of body aches, cough. She also reports right calf tenderness and cramping that she noticed this morning. Of note patient is wearing thick gel nail citizen of [place] and artificial nails. I do believe that there was a poor reading of the home oximeter. Patient is 99- 100% room air with alternate placement of the pulse oximeter. I did discuss home use of the oximeter, quarantining, and supportive symptom care including increased fluids, Tylenol or ibuprofen, and taking vitamins with her. She verbalized understanding. We will give her a handheld albuterol inhaler, will order an outpatient ultrasound and to return to the ED for results to rule out DVT. Patient discharged from department hemodynamically stable condition. This text was generated using [employer] system, please disregard any oddities of phrase or misspellings. HPI General Mode of arrival: ambulatory . Date/Time Provider Initiated Documentation: 07/08/21 18:43 . Limitations to Documentation: no limitations . Information obtained by: patient and RN notes reviewed . HPI Narrative: 36-year-old female presents to the ER with chief complaint of cough, body aches, loss of taste and smell and low O2 sat from a home oximeter prior to arrival. Patient reports that she was given a pulse oximeter by a friend after being diagnosed via home test on Thursday with COVID-19. Patient reports that she did have a PCR swab done today which is pending at this time. She reports that her whole household has Covid. She states that symptoms started yesterday of body aches, cough. She also reports right calf tenderness and cramping that she noticed this morning. She is a non-smoker does not take control. She is dates that she has been quarantining. She is not vaccinated. Of note patient does have thick plaque gel nail citizen of [place] noted on her fingers. She is satting 10 0% on room air in the department. No nausea vomiting diarrhea or any other associated symptoms. Patient does have a past medical history of bipolar, gallstones, and noted history is former smoker. Related Data Home Medications Medication Instructions Recorded Confirmed lamotrigine 100 mg tablet 200 mg PO DAILY 01/27/20 07/08/21 melatonin 5 mg capsule 5 mg PO HS cap 01/27/20 07/08/21 bupropion HCl [Wellbutrin XL] 300 mg PO QPM 02/03/20 07/08/21 multivitamin 1 tab PO DAILY 08/10/20 07/08/21 lisdexamfetamine [Vyvanse] 30 mg PO DAILY 07/08/21 07/08/21 Allergies Allergy/AdvReac Type Severity Reaction Status Date / Time prochlorperazine edisylate AdvReac SHAKES/COLD Unverified 07/08/21 18:31 [From Compazine] SWEATS General Stated Complaint: RespSymp MARCO: 3 Review of Systems All systems reviewed & are unremarkable except as noted in HPI and below Cardiovascular Cardiovascular: Denies chest pain, Denies syncope, Reports claudication, Denies leg ulcers and Denies palpitations Respiratory Respiratory: Reports as per HPI, Reports cough, Denies hemoptysis and Denies wheezing Musculoskeletal Musculoskeletal: Reports as per HPI Neurologic Neurologic: Denies syncope Endocrine Endocrine: Denies palpitations Allergic/Immunologic Allergic/Immunologic: Denies wheezing [facility] Medical History Abdominal pain ASCUS with positive high risk HPV cervical Screening pap at time of . Colpo 08/19/2018 benign. Recommend Pap/HPV in 1 year. Bipolar 1 disorder anxiety component. Patient referred to psychiatry for consultation regarding medications Contraception 03/05/20 changed from monthly menses to q3mo menses. History of gallstones seen on US Hx of opioid abuse None x5yrs. Metrorrhagia 01/27/20 per note from PCP,stopped control pills 2 weeks ago Right upper quadrant pain Watery diarrhea Surgical History Endoscopy S/P laparoscopy pt. questions this Family History Mother Mental disorder depression Father Diabetes IDDM Sister Mental disorder depression Sister No problems noted. Brother No problems noted. Brother No problems noted. 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 Pets and animals: Yes (dog) Pets and animals: dog(s) Do you feel safe at home: Yes Do you feel safe in your relationship?: Yes Female Reproductive History Menstrual control method: other (pt is unsure of plans for contraception after delivery.) History History 9 Para 3 Hx # Term Pregnancies 4 Multiple births 0 Hx # Pregnancies 0 Ectopic pregnancies 0 AB induced Hx Number of Living Children 4 AB spontaneous Past Pregnancies Del. Date GA/Weeks # Outcome Route Wgt Sex Labor Lgth Anesthes ia Location Prov Complic 07/03/18 39 No Successful vaginal 3401.943 g Female Delivery Date: 07/03/18 without complications. Patient had an epidural. Infant's name is spelled Viki. Anjali Anaya Exam Narrative Exam Narrative: Constitutional: Alert and oriented x3. Appears stated age. Normal body habitus. Head: Normocephalic, no trauma. Eyes: Pupils PERRL, Red reflex noted, EOM's intact. Eyelids symmetrical without lesions, discharge, or swelling. ENT: Bilateral TM's WNL, External ear normal to inspection, no mastoid TTP, swelling, or erythema, Nasal turbinates WNL, no nasal discharge. Normal dentition, Posterior pharynx WNL, no exudate. Chest: RRR, Normal S1, S2, distal pulses intact. Resp: Lungs clear to auscultation bilaterally, no wheezes, rales, or rhonchi. Abdomen: Soft, non-distended, Normoactive bowel sounds all 4 quads. Musculoskeletal: Normal gait, 5/5 strength to all four extremities. Increased pain with dorsiflexion. No significant calf swelling or redness noted. Skin: No suspicious rashes or lesions. Capillary refill less than 2 sec. Neurologic: Cranial nerves II-XII intact. Alert and oriented x 3. Motor: No deficits noted. Sensory: Intact bilaterally all 4 extremities. Reflexes: DTR's intact bilaterally.. Hematologic/Lymphatic: No ecchymosis, no lymphadenopathy. Course Vital Signs Vital signs: Vital Signs Temperature 36.8 C 07/08/21 18:28 Pulse 96 H 07/08/21 18:28 Respiratory Rate 18 07/08/21 18:28 Blood Pressure 147/93 H 07/08/21 18:28 Pulse Oximetry 99 11/08/21 18:28 Temperature 36.8 C 07/08/21 18:28 Temperature Source Temporal Artery Scan 07/08/21 18:28 Pulse 96 H 07/08/21 18:28 Respiratory Rate 18 07/08/21 18:28 Respiratory Effort Non-Labored 07/08/21 18:32 Respiratory Depth Normal 07/08/21 18:32 Blood Pressure 147/93 H 07/08/21 18:28 Blood Pressure Position Sitting 07/08/21 18:28 Pulse Oximetry 99 07/08/21 18:28 Oxygen Delivery Method Room Air 07/08/21 18:28 Oxygen Flow Rate 0 07/08/21 18:28 PAWSS Have you Been Recently Intoxicated or Drunk Within the Last 30 days?: No Have you Ever Experienced Previous Episodes of Alcohol Withdrawal?: No Have you ever Experienced Withdrawal Seizures?: No Have you ever Experienced Delirium Tremens(DT)s?: No Have you ever undergone Alcohol Rehabilitation Treatment (i.e, inpt ot outpatient treatment programs)?: No Have you ever Experienced Blackouts?: No Have you ever Combined Alcohol with other Downers within the last 90 days?: No Have you ever Combined Alcohol with any other Substance of Abuse during the last 90 days?: No Positive Blood Alcohol level on Presentation? [PCS.BAL]: No Evidence of Increased Autonomic Activity (i.e. HR>120, tremor, sweating, agitation, nausea)?: No Result: 0
[2021-07-08] MEDS: Albuterol HFA 8 GM 60 PUFF INH IH (19:53)
[2021-07-08] MEDS: Inhaler, Assist Device 1 EACH MC (19:53)
--- NOTE | 2021-07-09 10:39 | W.ED.FU ---
Follow Up Plan: u/s negative for dvt and discussed this with the patient and she had no further questions, advised if it's not better in a week or worsening to be seen again
== END 2021-07-08 19:40 | disposition home or self-care (01) ==
PROVIDERS: Emergency Provider Registered Nurse Emergency; PCP Nurse Practitioner Family
DX: U07.1 COVID-19 (principal); M79.604 Pain in right leg; R43.8 Other disturbances of smell and taste; Z87.891 Personal history of nicotine dependence
CPT/HCPCS: 99283

== ENCOUNTER 2021-07-09 08:18 | Outpatient (CLI) | payer MEDICAID, SELFPAY ==
--- NOTE | 2021-07-09 | DI.US_ITS ---
Exam(s) US LOWER EXTREMITY VENOUS RT EXAM: US LOWER EXTREMITY VENOUS RT CLINICAL HISTORY: RT CALF PAIN, COVID +, ? DVT TECHNIQUE: Right lower extremity venous ultrasound performed using grayscale, color-flow, and spectr al Doppler analysis. COMPARISON: No exams were available for comparison FINDINGS: The right common femoral, femoral and popliteal veins demonstrate normal compressibility, augmentatio n, and color Doppler. The posterior tibial veins are patent. The saphenofemoral junction is unremark able. There is no evidence of a Santos cyst. The soft tissues are unremarkable. IMPRESSION: No DVT. DATA REPOSITORY:
== END 2021-07-09 08:38 ==
PROVIDERS: PCP Nurse Practitioner Family; Visit Provider Registered Nurse Emergency
DX: M79.661 Pain in right lower leg (principal)
CPT/HCPCS: 93971

== ENCOUNTER 2021-07-12 01:39 | Outpatient (CLI) | payer MEDICAID, SELFPAY ==
[2021-07-12 08:40] VITALS: BP 98/71; PULSE 70; RESP 16; TEMP 36.4; O2SAT 98
[2021-07-12] MEDS: Normal Saline Flush 10 ML SYR IVP (08:55)
[2021-07-12] MEDS: Normal Saline 500 ML 30 ML IV (08:56)
[2021-07-12 09:00] VITALS: BP 113/77; PULSE 87; RESP 16; TEMP 36.5; O2SAT 99
[2021-07-12 09:20] VITALS: BP 102/71; PULSE 90; RESP 16; TEMP 36.4; O2SAT 99
[2021-07-12 10:17] VITALS: BP 101/71; PULSE 87; RESP 20; TEMP 36.8; O2SAT 99
== END 2021-07-12 01:40 | disposition home or self-care (01) ==
LOC: INF 01:40
PROVIDERS: PCP Nurse Practitioner Family; Visit Provider Family Medicine
DX: U07.1 COVID-19 (principal)
CPT/HCPCS: 96365

== ENCOUNTER 2022-02-19 14:14 | Outpatient (REF) | payer MEDICAID, SELFPAY ==
[2022-02-19 21:05] LABS: ALT 23 U/L (14-59); AST 13 U/L (15-37); Alkaline Phosphatase 84 U/L (46-116); Anion Gap 7.8 mmol/L (3-11); BUN 9 mg/dL (7-18); Bilirubin, Total 0.3 mg/dL (0.2-1.0); CO2 28.2 mmol/L (21.0-32.0); CREATININE 0.8 mg/dL (0.55-1.02); Calcium 9.7 mg/dL (8.5-10.1); Chloride 101 mmol/L (98-107); Glucose 81 mg/dL (74-106); Potassium 3.9 mmol/L (3.5-5.1); Sodium 137 mmol/L (136-145); Total Protein 7.5 g/dL (6.4-8.2)
== END 2022-02-19 14:15 | disposition home or self-care (01) ==
LOC: NCHCN 14:14
PROVIDERS: PCP Nurse Practitioner Family; Visit Provider Nurse Practitioner Family
DX: Z51.81 Encounter for therapeutic drug level monitoring (principal)
CPT/HCPCS: 80053

== ENCOUNTER 2022-03-05 00:27 | Emergency (ER) | payer MEDICAID, SELFPAY ==
[2022-03-05 00:59] VITALS: BP 121/75; PULSE 73; RESP 16; TEMP 36.5; O2SAT 99
--- NOTE | 2022-03-05 01:16 | ED.GENADUL_ITS ---
Discharge Plan Disposition Patient Disposition: HOME Condition: Improving Discharge Details Clinical Impression: Pharyngitis Primary Care Provider: Destiney Alexander ED Provider: Modesto Woods Home Meds and New Rx's Prescriptions: New penicillin V potassium 500 mg tablet 500 mg PO TID 10 Days Qty: 30 0RF Continued lamotrigine 100 mg tablet 200 mg PO DAILY melatonin 5 mg capsule 5 mg PO HS multivitamin Tablet 1 tab PO DAILY ciprofloxacin HCl 500 mg tablet 500 mg PO Q12H Qty: 6 0RF fluconazole 150 mg tablet 150 mg PO ONCE Qty: 1 5RF Rx Instructions: as a single dose valacyclovir 500 mg tablet 500 mg PO BID Qty: 30 1RF Rx Instructions: take one tablet twice daily for 3 days. bupropion HCl [Wellbutrin XL] 300 mg tablet extended release 24 hr 300 mg PO QPM Vyvanse 30 mg capsule 30 mg PO DAILY Medical Decision Making 37-year-old female presents with 4 to 5 days of sore throat, similar to previous episodes of strep. Rapid strep test is equivocal. I will place her on a course of penicillin with dexamethasone for its anti-inflammatory properties. She understands home care as well as indications to seek re-evaluation. HPI General Mode of arrival: ambulatory . Date/Time Provider Initiated Documentation: 03/05/22 00:28 . Limitations to Documentation: no limitations . Information obtained by: patient . History of Present Illness 37 year old F presents to the emergency department with the chief complaint of Sore throat for 4 to 5 days, described as moderate, Quality is described as dull and constant, and is localized to the mouth. Patient reports no radiation. Patient started experiencing this day(s) and it has been constant. No relieving factors improve symptom(s), No exacerbating factors reported . Patient did receive the following treatments prior to arrival, none Related Data Home Medications Medication Instructions Recorded Confirmed lamotrigine 100 mg tablet 200 mg PO DAILY 01/27/20 03/05/22 melatonin 5 mg capsule 5 mg PO HS 01/27/20 03/05/22 bupropion HCl 300 mg 24 hr tablet, 300 mg PO QPM 02/03/20 03/05/22 extended release (Wellbutrin XL) multivitamin 1 tab PO DAILY 08/10/20 03/05/22 lisdexamfetamine 30 mg capsule 30 mg PO DAILY 07/08/21 07/08/21 (Vyvanse) ciprofloxacin HCl 500 mg tablet 500 mg PO Q12H #6 tabs 09/18/21 fluconazole 150 mg tablet 150 mg PO ONCE #1 tab 09/26/21 valacyclovir 500 mg tablet 500 mg PO BID #30 tabs 01/28/22 penicillin V potassium 500 mg 500 mg PO TID 10 days #30 tabs 03/05/22 tablet Previous Rx's Medication Instructions Recorded ciprofloxacin HCl 500 mg tablet 500 mg PO Q12H #6 tabs 09/18/21 fluconazole 150 mg tablet 150 mg PO ONCE #1 tab 09/26/21 valacyclovir 500 mg tablet 500 mg PO BID #30 tabs 01/28/22 penicillin V potassium 500 mg 500 mg PO TID 10 days #30 tabs 03/05/22 tablet Allergies Allergy/AdvReac Type Severity Reaction Status Date / Time prochlorperazine edisylate AdvReac SHAKES/COLD Unverified 03/05/22 01:03 [From Compazine] SWEATS General Stated Complaint: Sorethroat MARCO: 3 Review of Systems Narrative: Drugs big-time no trouble breathing, able to swallow and handle secretions. No fever. Similar to previous episodes of PFSH All Active Problems (Updated 03/05/22 @ 01:22 by Modesto Woods MD) Pharyngitis (Acute) Vaginitis (Acute) UTI (urinary tract infection) (Acute) COVID-19 (Acute) Pain in right leg (Acute) Anxiety (Acute 07/30/17) Previously treated by Dr. martin her medication recall: Venlafaxine, Wellbutrin, SSRIs not effective. BMI 37.0-37.9, adult (Acute 07/23/15) Insomnia (Acute 07/30/17) Prazosin, Clonidine not tolerated/effective. Generalized anxiety disorder (Chronic) Cholelithiasis (Acute) Bipolar 1 disorder (Chronic) anxiety component. Patient referred to psychiatry for consultation regarding medications Medical History Abdominal pain ASCUS with positive high risk HPV cervical Screening pap at time of . Colpo 08/19/2018 benign. Recommend Pap/HPV in 1 year. Contraception 03/05/20 changed from monthly menses to q3mo menses. History of gallstones seen on US HSV (herpes simplex virus) infection Metrorrhagia 01/27/20 per note from PCP,stopped control pills 2 weeks ago Right upper quadrant pain Watery diarrhea Surgical History Endoscopy S/P laparoscopy pt. questions this Family History Mother Mental disorder depression Father Diabetes IDDM Sister Mental disorder depression Sister No problems noted. Brother No problems noted. Brother No problems noted. 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 Pets and animals: Yes (dog) Pets and animals: dog(s) Do you feel safe at home: Yes Do you feel safe in your relationship?: Yes Female Reproductive History Menstrual control method: other (pt is unsure of plans for contraception after delivery.) History History 9 Para 3 Hx # Term Pregnancies 4 Multiple births 0 Hx # Pregnancies 0 Ectopic pregnancies 0 AB induced Hx Number of Living Children 4 AB spontaneous Past Pregnancies Del. Date GA/Weeks # Preg Succ Route Wgt Sex Labor Lgth Anesth esia Location [facility] 07/03/18 39 No vaginal 3401.943 g Female Delivery Date: 07/03/18 Last Updated by: Devan Rascon without complications. Patient had an epidural. 's name is spelled Viki. Exam Narrative Exam Narrative: GEN: awake, alert, oriented 3. Pleasant, well groomed, interactive. HEAD: Normocephalic, atraumatic ENT: Mucous membranes moist, oropharynx erythematous without asymmetry, uvula is midline, tympanic membranes clear, External ear exam unremarkable EYES: PERRL, EOMI NECK: Full ROM, no LALA, no menigismus CHEST/RESP: Nontender, clear to auscultation bilateral, no wheeze/rhonchi/rales CARDIOVASCULAR: RRR, no murmur, rub nevin. 2+ Rad pulse bilateral ABDOMEN: Soft, nontender, no mass. +Bowel sounds Neuro: Grossly normal neurologic exam, conversant, interactive. Psych: Speech fluent, thoughts congruent, affect normal Course Vital Signs Vital signs: Vital Signs Temperature 36.5 C 03/05/22 00:59 Pulse 73 03/05/22 00:59 Respiratory Rate 16 03/05/22 00:59 Blood Pressure 121/75 03/05/22 00:59 Pulse Oximetry 99 03/05/22 00:59 Temperature 36.5 C 03/05/22 00:59 Temperature Source Skin 03/05/22 00:59 Pulse 73 03/05/22 00:59 Respiratory Rate 16 03/05/22 00:59 Respiratory Effort Non-Labored 03/05/22 01:05 Blood Pressure 121/75 03/05/22 00:59 Blood Pressure Position Sitting 03/05/22 00:59 Pulse Oximetry 99 03/05/22 00:59 Oxygen Delivery Method Room Air 03/05/22 00:59 Oxygen Flow Rate 0 03/05/22 00:59 Pain Level 8 03/05/22 00:59 PAWSS Have you Been Recently Intoxicated or Drunk Within the Last 30 days?: No Have you Ever Experienced Previous Episodes of Alcohol Withdrawal?: No Have you ever Experienced Withdrawal Seizures?: No Have you ever Experienced Delirium Tremens(DT)s?: No Have you ever undergone Alcohol Rehabilitation Treatment (i.e, inpt ot outpatient treatment programs)?: No Have you ever Experienced Blackouts?: No Have you ever Combined Alcohol with other Downers within the last 90 days?: No Have you ever Combined Alcohol with any other Substance of Abuse during the last 90 days?: No Positive Blood Alcohol level on Presentation? [PCS.BAL]: No Evidence of Increased Autonomic Activity (i.e. HR>120, tremor, sweating, agitation, nausea)?: No Result: 0
[2022-03-05] MEDS: Penicillin V POTASSIUM 500 MG TAB, 4 TABS/BTL PO (01:32)
[2022-03-05] MEDS: Dexamethasone 4 MG TAB 8 MG PO (01:32)
[2022-03-05 01:38] VITALS: BP 121/75; PULSE 73; RESP 16; TEMP 36.5; O2SAT 99
== END 2022-03-05 01:42 | disposition home or self-care (01) ==
PROVIDERS: Emergency Provider Emergency Medicine; PCP Nurse Practitioner Family
DX: J02.9 Acute pharyngitis, unspecified (principal)
CPT/HCPCS: 87880; 99283; 87081; J8540

== ENCOUNTER 2022-03-25 16:18 | Outpatient (REF) | payer MEDICAID, SELFPAY ==
[2022-03-25 15:23] LABS: Lithium 0.3 mmol/l (0.6-1.2)
== END 2022-03-25 16:19 | disposition home or self-care (01) ==
LOC: NCHCN 16:18
PROVIDERS: PCP Nurse Practitioner Family; Visit Provider Nurse Practitioner Family
DX: F31.9 Bipolar disorder, unspecified (principal); Z51.81 Encounter for therapeutic drug level monitoring; Z79.899 Other long term (current) drug therapy
CPT/HCPCS: 80178

== ENCOUNTER 2022-04-03 15:17 | Outpatient (REF) | payer MEDICAID, SELFPAY ==
[2022-04-03 15:23] LABS: Lithium 0.6 mmol/l (0.6-1.2)
[2022-04-03 16:23] LABS: BUN 10 mg/dL (7-18); CREATININE 0.9 mg/dL (0.55-1.02); Calcium 9.4 mg/dL (8.5-10.1); Chloride 102 mmol/L (98-107); Glucose 84 mg/dL (74-106); Potassium 4.7 mmol/L (3.5-5.1); Sodium 141 mmol/L (136-145); TSH 2.34 uIU/mL (0.36-3.74); Vitamin B12 744 pg/mL (193-986)
[2022-04-03 22:00] LABS: FREE T4 0.92 ng/dL (0.76-1.46)
== END 2022-04-03 15:18 | disposition home or self-care (01) ==
LOC: NCHCN 15:17
PROVIDERS: PCP Nurse Practitioner Family; Visit Provider Nurse Practitioner Family
DX: F43.10 Post-traumatic stress disorder, unspecified (principal); F31.9 Bipolar disorder, unspecified; Z51.81 Encounter for therapeutic drug level monitoring; Z79.899 Other long term (current) drug therapy
CPT/HCPCS: 80048; 80178; 82607; 84439; 84443

== ENCOUNTER 2022-06-13 10:53 | Outpatient (REF) | payer MEDICAID, SELFPAY ==
--- NOTE | 2022-06-13 09:30 | PAPFT_PTH ---
PATIENT: Solange Nichols LOC: [facility] U#:[id number] AGE/SX: 37/F ROOM: RE06/13/[address]: Anjali Anaya : 1985 BED: DIS: 06/13/2022 SPEC #: [id number] RECD: 06/13/22 12:44 STATUS: EDD REAkil #: [id number] ARTI: 06/13/22 09:[address]: Anjali Anaya DEPT: [facility] Cytology RECD BY: Ava Barajas ENTERED: 06/13/22 12:44 SP TYPE: PAPFT OTHR DR: Destiney Alexander Tissues: 1 - CX/ENDOCX FOR PAP SMEARS Procedures: PAP THIN PREP/[facility] Screening HPV DNA PROBE Comments: [id number]
== END 2022-06-13 10:54 | disposition home or self-care (01) ==
LOC: LBN 10:53
PROVIDERS: PCP Nurse Practitioner Family; Visit Provider Obstetrics & Gynecology Gynecology
DX: Z12.4 Encounter for screening for malignant neoplasm of cervix (principal); Z11.51 Encounter for screening for human papillomavirus (HPV)
CPT/HCPCS: 88142; 87624

== ENCOUNTER 2022-07-11 18:15 | Outpatient (REF) | payer MEDICAID, SELFPAY ==
[2022-07-11 15:17] LABS: Anion Gap 6.2 mmol/L (3-11); BUN 20 mg/dL (7-18); CO2 30.8 mmol/L (21.0-32.0); CREATININE 0.9 mg/dL (0.55-1.02); Calcium 9.9 mg/dL (8.5-10.1); Chloride 102 mmol/L (98-107); Glucose 63 mg/dL (74-106); Potassium 4.1 mmol/L (3.5-5.1); Sodium 139 mmol/L (136-145); TSH (W/Ref FT4) 3.25 uIU/mL (0.36-3.74)
[2022-07-11 16:15] LABS: Vitamin D 25 Total 41.8 ng/mL (30-100)
[2022-07-11 20:37] LABS: Lithium 0.5 mmol/l (0.6-1.2)
== END 2022-07-11 18:16 | disposition home or self-care (01) ==
LOC: NCHCN 18:15
PROVIDERS: PCP Nurse Practitioner Family; Visit Provider Nurse Practitioner Family
DX: E66.8 Other obesity; Z51.81 Encounter for therapeutic drug level monitoring; Z79.899 Other long term (current) drug therapy; F43.12 Post-traumatic stress disorder, chronic; F31.11 Bipolar disorder, current episode manic without psychotic features, mild; R25.1 Tremor, unspecified; Z63.79 Other stressful life events affecting family and household; Z59.86 Financial insecurity
CPT/HCPCS: 80048; 82306; 80178; 84443

== ENCOUNTER 2022-07-14 15:07 | Outpatient (REF) | payer MEDICAID, SELFPAY ==
[2022-07-14 15:17] LABS: Lithium 0.3 mmol/l (0.6-1.2)
== END 2022-07-14 15:08 | disposition home or self-care (01) ==
LOC: NCHCN 15:07
PROVIDERS: PCP Nurse Practitioner Family; Visit Provider Nurse Practitioner Family
DX: F31.11 Bipolar disorder, current episode manic without psychotic features, mild (principal); F43.12 Post-traumatic stress disorder, chronic; Z79.899 Other long term (current) drug therapy; Z51.81 Encounter for therapeutic drug level monitoring
CPT/HCPCS: 80178

== ENCOUNTER 2022-09-08 18:16 | Outpatient (REF) | payer MEDICAID, SELFPAY ==
[2022-09-08 14:37] LABS: Lithium 0.5 mmol/l (0.6-1.2)
== END 2022-09-08 18:17 | disposition home or self-care (01) ==
LOC: NCHCN 18:16
PROVIDERS: PCP Nurse Practitioner Family; Visit Provider Nurse Practitioner Family
DX: F43.10 Post-traumatic stress disorder, unspecified (principal); F31.9 Bipolar disorder, unspecified; Z51.81 Encounter for therapeutic drug level monitoring
CPT/HCPCS: 80178

== ENCOUNTER 2023-03-26 13:05 | Outpatient (CLI) | payer MEDICAID, SELFPAY ==
--- NOTE | 2023-03-26 13:15 | DI.RAD_ITS ---
Exam(s) XR CHEST 2V PA LATERAL EXAM: PA LATERAL CHEST CLINICAL HISTORY: . TECHNIQUE: 2D digital imaging was performed. COMPARISON: No exams were available for comparison FINDINGS: Two views Heart size normal. Mediastinum not widened. Lungs are clear. No infiltrates nor pleural effusions. No pulmonary edema. No pneumothorax. No fr actures. IMPRESSION: No acute pulmonary findings. DATA REPOSITORY: RADIATION DOSE DELIVERED:
== END 2023-03-26 13:25 ==
PROVIDERS: PCP Nurse Practitioner Family; Visit Provider Nurse Practitioner Family
DX: R05.8 Other specified cough (principal)
CPT/HCPCS: 71046

== ENCOUNTER 2023-11-24 22:29 | Outpatient (REF) | payer MEDICAID, SELFPAY ==
[2023-11-24 15:50] LABS: HCT 44.4 % (36.0-46.0); HGB 13.9 g/dL (11.2-15.7); MCH 29.2 pg (27.0-33.0); MCHC 31.3 % (32.0-36.0); MCV 93 fL (80-95); MPV 11.3 fL (8.0-11.0); Platelet Count 302 10^3/uL (130-400); RBC 4.76 10^6/uL (3.93-5.22); RDW 12.2 % (11.7-14.6); RDW-SD 42.5 fL; WBC 6.96 10^3/uL (4.4-10.8)
[2023-11-24 16:16] LABS: Lithium 0.5 mmol/l (0.6-1.2)
[2023-11-24 16:30] LABS: ALT 19 U/L (14-59); AST 9 U/L (15-37); Albumin 3.9 g/dL (3.4-5.0); Alkaline Phosphatase 95 U/L (46-116); Anion Gap 7.9 mmol/L (3-11); BUN 13 mg/dL (7-18); Bilirubin, Total 0.5 mg/dL (0.2-1.0); CO2 29.1 mmol/L (21.0-32.0); Calcium 9.5 mg/dL (8.5-10.1); Calculated LDL 100 mg/dL (<100); Chloride 104 mmol/L (98-107); Cholesterol 184 mg/dL (<200); Estimated GFR 74.88 (mL/min/1.73m2); Glucose 77 mg/dL (74-106); HDL Cholesterol 65 mg/dL (40-60); Potassium 4.3 mmol/L (3.5-5.1); Sodium 141 mmol/L (136-145); TSH 3.11 uIU/Ml (0.36-3.74); Triglyceride 95 mg/dL (<150); Vitamin B12 937 pg/mL (193-986)
[2023-11-24 16:57] LABS: FREE T4 0.87 ng/dL (0.76-1.46)
== END 2023-11-24 22:30 | disposition home or self-care (01) ==
LOC: NCHCN 22:29
PROVIDERS: PCP Nurse Practitioner Family; Referring Provider Nurse Practitioner Family; Visit Provider Nurse Practitioner Family
DX: Z51.81 Encounter for therapeutic drug level monitoring (principal); F31.9 Bipolar disorder, unspecified
CPT/HCPCS: 80053; 80061; 85027; 80178; 82607; 84439; 84443

== ENCOUNTER 2024-01-18 14:10 | Outpatient (CLI) | payer MEDICAID, SELFPAY ==
--- NOTE | 2024-01-18 14:00 | RT.EKG_ITS ---
APPROVED REPORT Exam: Resting ECG Reason for Exam: NPW baseline needed Patient Location: O HR:80 bpm ECG Measurements Heart Rate 80 AXIS AL 138 P 57 QRSd 86 QRS 28 QT 352 T 52 QTc 406 Conclusion Sinus rhythm...normal P axis, V-rate 50- 99 Poor R wave progression
== END 2024-01-18 14:11 | disposition home or self-care (01) ==
LOC: DI.CARD 14:12
PROVIDERS: PCP Nurse Practitioner Family; Visit Provider Internal Medicine Cardiovascular Disease
DX: R94.31 Abnormal electrocardiogram [ECG] [EKG] (principal)
CPT/HCPCS: 93010

== ENCOUNTER 2024-03-05 22:09 | Emergency (ER) | payer MEDICAID, SELFPAY ==
--- NOTE | 2024-03-05 22:00 | RT.EKG_ITS ---
APPROVED REPORT Exam: Resting ECG Reason for Exam: sob Patient Location: E HR:88 bpm ECG Measurements Heart Rate [address] 131 P 50 QRSd 82 QRS 20 QT 356 T 45 QTc 432 Conclusion Sinus rhythm...normal P axis, V-rate 60- 99 There are no significant changes compared to prior EKG performed on 01/18/2024 at 12:59.
[2024-03-05 22:13] VITALS: BP 154/101; PULSE 97; RESP 18; TEMP 36.4; O2SAT 99
--- NOTE | 2024-03-05 22:13 | ED.GENADUL_ITS ---
Discharge Plan Disposition Patient Disposition: Home Condition: Good Discharge Details Clinical Impression: Cough variant asthma Primary Care Provider: Destiney Alexander ED Provider: Mik Henderson [place] Meds and New Rx's Prescriptions: New azithromycin 250 mg tablet 250 mg PO HS 4 Days Qty: 4 0RF Rx Instructions: start on day 2 of therapy prednisone 20 mg tablet 40 mg PO HS Qty: 6 0RF Continued dextroamphetamine-amphetamine [Adderall] 5 mg tablet 5 mg PO PRN Rx Instructions: up to 2 tabs lithium carbonate 300 mg tablet 300 mg PO DAILY Rx Instructions: 3 tabs quetiapine [Seroquel] 50 mg tablet 100 mg PO DAILY Rx Instructions: take up to 250 mg hs lamotrigine 100 mg tablet 200 mg PO DAILY multivitamin Tablet 1 tab PO DAILY lithium carbonate 450 mg tablet extended release 450 mg PO DAILY bupropion HCl [Wellbutrin XL] 300 mg tablet extended release 24 hr 300 mg PO QPM lisdexamfetamine [Vyvanse] 30 mg capsule 30 mg PO DAILY albuterol sulfate [Ventolin HFA] 90 mcg/actuation HFA aerosol inhaler 2 puff INHALATION Q6H PRN Patient Comments: INHALE 2 PUFFS BY MOUTH EVERY 4 TO 6 HOURS NEEDED fluticasone propionate 44 mcg/actuation HFA aerosol inhaler 2 inh inhalation BID PRN Rx Instructions: administer with spacer Discharge Instructions Additional Instructions: You were seen for persistent cough and chest tightness. Your chest x-ray is normal. We have started you on azithromycin and prednisone. You should continue your inhalers and may use albuterol every 4-6 hours as needed. Follow- up with primary care at the end of the week if not improving. Return to ED for any increased shortness of breath, new or worsening chest pain, syncope, mental status change, other concerns. HPI General Mode of arrival: ambulatory . Date/Time Provider Initiated Documentation: 03/05/24 22:13 . Limitations to Documentation: no limitations . Information obtained by: patient and RN notes reviewed . HPI Narrative: Patient presents to ED with complaint of cough, shortness of breath, chest tightness that has been present for almost 10 days now. At no time has she had a fever. Cough is sometimes productive. She has sharp chest pain with cough or deep breath. She has been using her albuterol and Flovent inhaler. She has had some hoarseness and a sore throat. Denies headache, congestion, abdominal pain, vomiting, diarrhea. Feels like she is getting worse and not better. Related Data Home Medications Medication Instructions Recorded Confirmed lamotrigine 100 mg tablet 200 mg PO DAILY 01/27/20 03/05/24 bupropion HCl 300 mg 24 hr tablet, 300 mg PO QPM 02/03/20 03/05/24 extended release (Wellbutrin XL) multivitamin 1 tab PO DAILY 08/10/20 03/05/24 lisdexamfetamine 30 mg capsule 30 mg PO DAILY 07/08/21 03/05/24 (Vyvanse) dextroamphetamine-amphetamine 5 mg 5 mg PO PRN 06/13/22 03/05/24 tablet (Adderall) lithium carbonate 300 mg tablet 300 mg PO DAILY 06/13/22 03/05/24 lithium carbonate 450 mg 450 mg PO DAILY 01/11/24 03/05/24 tablet,extended release quetiapine 50 mg tablet (Seroquel) 100 mg PO DAILY 01/18/24 03/05/24 albuterol sulfate 90 mcg/actuation 2 puff inhalation Q6H PRN 03/05/24 03/05/24 aerosol inhaler (Ventolin HFA) azithromycin 250 mg tablet 250 mg PO HS 4 days #4 tabs 03/05/24 fluticasone propionate 44 2 inh inhalation BID PRN 03/05/24 03/05/24 mcg/actuation HFA aerosol inhaler prednisone 20 mg tablet 40 mg (2 x 20 mg) PO HS #6 tabs 03/05/24 Previous Rx's Medication Instructions Recorded azithromycin 250 mg tablet 250 mg PO HS 4 days #4 tabs 03/05/24 prednisone 20 mg tablet 40 mg (2 x 20 mg) PO HS #6 tabs 03/05/24 Allergies Allergy/AdvReac Type Severity Reaction Status Date / Time prochlorperazine edisylate AdvReac SHAKES/COLD Verified 03/05/24 22:17 [From Compazine] SWEATS General MARCO: 3 Review of Systems Narrative: Per HPI Exam Narrative Exam Narrative: Const: WDWN female in NAD. VS per triage. HEENT: NC/AT. Normal facial exam. Neck: Supple. Trachea midline. Lungs: Normal respiratory effort. Lungs are clear. Cor: RRR without murmur. Good radial pulses. GI: Soft/ND Neuro: A+O x 3. Normal speech, mentation, gait. Cranial nerves II - XII grossly intact. No gross motor or sensory deficit. Ext: No C/C/E. Medical Decision Making Patient presenting to ED with complaint of cough and shortness of breath over the last 10 days. Feels like her cough is getting worse. Inhalers do not seem to be helping. Some chest tightness and some sharp chest pain with deep breath or cough. A little hypertensive otherwise vital signs are normal with good pulse oximetry. There is no wheezing there is good air exchange. EKG obtained from triage is sinus rhythm with normal axis and interval, nonspecific ST changes, unchanged from previous. Chest x-ray ordered. Benzonatate ordered for cough. Symptoms most consistent with URI, viral versus atypical versus less likely bacterial pneumonia. Symptoms not consistent with cardiac issue. Chest x-ray per my read with no acute cardiopulmonary process. Benzonatate has helped slightly with the cough. She has been placed on prednisone in the past for symptoms similar to this. She reports that she has never had wheezing but was told she has upper respiratory disease. May be cough variant type asthma. Reasonable to do a short prednisone burst as well as to start azithromycin for possible atypical infection. Doses given tonight and prescriptions for benzonatate, prednisone, azithromycin sent to pharmacy. Follow-up with primary care later this week if not improving. Return precautions provided. ECG Data Attestation: I personally reviewed and interpreted this ECG (s) as follows: Prior ECG tracings: available for review Interpretation: See EKG Quality:SDOH Health Related Social Needs: No Data to Display PFSH All Active Problems (Updated 03/05/24 @ 23:43 by Mik Henderson MD) Cough variant asthma (Acute) Contraception (Acute) 03/05/20 changed from monthly menses to q3mo menses. Metrorrhagia (Acute) 01/27/20 per note from PCP,stopped control pills 2 weeks ago HSV (herpes simplex virus) infection (Acute) Pain in female pelvis (Acute 04/18/15) Abnormal EKG (Acute) Insomnia (Acute 07/30/17) BMI 37.0-37.9, adult (Acute 07/23/15) Generalized anxiety disorder (Chronic) Medical History Cholelithiasis Bipolar 1 disorder anxiety component. Patient referred to psychiatry for consultation regarding medications Anxiety (07/30/17) ASCUS with positive high risk HPV cervical Screening pap at time of . Colpo 08/19/2018 benign. Recommend Pap/HPV in 1 year. Surgical History S/P laparoscopy pt. questions this Endoscopy Family History Mother Mental disorder depression Father Diabetes IDDM Sister Mental disorder depression Sister No problems noted. Brother No problems noted. Brother No problems noted. 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 Pets and animals: Yes (dog) Pets and animals: dog(s) Current gender identity: female Do you feel safe at home: Yes Do you feel safe in your relationship?: Yes Female Reproductive History Menstrual control method: other (pt is unsure of plans for contraception after delivery.) History History 9 Para 3 Hx # Term Pregnancies 4 Multiple births 0 Hx # Pregnancies 0 Ectopic pregnancies 0 AB induced Hx Number of Living Children 4 AB spontaneous Past Pregnancies Del. Date GA/Weeks # Preg Succ Route Wgt Sex Labor Lgth Anesth esia Location Prov Complic 07/03/18 39 No vaginal 3401.943 g Female Delivery Date: 07/03/18 Last Updated by: Devan Rascon without complications. Patient had an epidural. Infant's name is spelled Viki.
[2024-03-05 22:18] VITALS: RESP 18
[2024-03-05 22:23] VITALS: BP 154/101; PULSE 97; RESP 18; TEMP 36.4; O2SAT 99
[2024-03-05] MEDS: Benzonatate 100 MG CAP PO (22:38)
--- NOTE | 2024-03-05 23:10 | DI.RAD_ITS ---
Exam(s) XR CHEST 2V PA LATERAL EXAM: XR CHEST 2V PA LATERAL CLINICAL HISTORY: cough, SOB. TECHNIQUE: 2D digital imaging was performed. COMPARISON: CR XR CHEST 2V PA LATERAL from 03/26/2023 FINDINGS: 2 views: Heart size is normal. The mediastinum is not widened. Lungs are clear. No infiltrates nor pleural effusions. IMPRESSION: No acute pulmonary findings.No significant change compared to February 2023. DATA REPOSITORY: RADIATION DOSE DELIVERED:
--- NOTE | 2024-03-05 23:24 | DI.VRAD_ITS ---
PROCEDURE INFORMATION: Exam: XR Chest Exam date and time: 03/05/2024 11:08 PM Age: 39 years old Clinical indication: Cough and shortness of breath TECHNIQUE: Imaging protocol: Radiologic exam of the chest. Views: 2 views. COMPARISON: CR XR CHEST 2V PA LATERAL 03/26/2023 1:16 PM FINDINGS: Lungs: No pulmonary consolidation is seen. Pleural spaces: No pleural effusion or pneumothorax is demonstrated. Heart/Mediastinum: The heart appears normal in size. Bones/joints: The visualized bony structures appear grossly intact. Organs: Surgical clips in the right upper quadrant suggest prior cholecystectomy. IMPRESSION: No active disease is seen in the chest. Dictated and Authenticated by: Cody Douglass MD. Ordering:JENNIE Houser MD
[2024-03-05] MEDS: Azithromycin 250 MG TAB 500 MG PO (23:40)
[2024-03-05] MEDS: predniSONE 20 MG TAB 40 MG PO (23:40)
[2024-03-05 23:48] VITALS: BP 132/76; PULSE 86; RESP 16; TEMP 36.9; O2SAT 98
== END 2024-03-05 23:51 | disposition home or self-care (01) ==
PROVIDERS: Emergency Provider Emergency Medicine; PCP Nurse Practitioner Family
DX: J45.991 Cough variant asthma (principal); R06.02 Shortness of breath
CPT/HCPCS: 93005; 99283; 71046; 93010; J7512

== ENCOUNTER 2024-04-29 01:51 | Outpatient (CLI) | payer MEDICAID, SELFPAY ==
--- OUTSIDE RECORDS SUMMARY | 2024-04-29 01:56 | XMS_ITS | Clinical Summary ---
Author Organization [facility] Address [address] [place] [address] Care Team Providers Care Principal Network Architect Name Role Phone Cynthia Alexandery DANIELLE Primary Care Provider [phone] Allergies Active Allergy Reactions Criticality Noted Date Comments Prochlorperazine Unknown shakes and restless leg Medications Medication Sig Dispensed Refills Start Date End Date Status metoclopramide (REGLAN) 5 mg Tablet 0 08/06/2015 Acti ve lamoTRIgine (LAMICTAL) 200 mg Tablet Take 200 mg by mouth daily. Active buPROPion (WELLBUTRIN XL) 300 mg Tablet Extended Release 24 hr Take 300 mg by mouth every morning. Active Vyvanse 30 mg Capsule Take 30 mg by mouth daily. 06/24/2022 Active dextroamphetamine-amp hetamine (Adderall) 5 mg Tablet TAKE 1 TO 2 TABLETS BY MOUTH DAILY DIRECTED 04/16/2022 Active lithium CR (Eskalith) 450 mg Tablet Sustained Release Take 450 mg by mouth daily. 07/03/2022 Active QUEtiapine (SEROquel) 50 mg Tablet 25 mg. 06/17/2022 Active lidocaine (Lidoderm) 5% Adhesive Patch, Medicated Apply 1 patch onto the skin daily. (leave on for 12 hours and remove for 12 hours) 30 patch 11/07/2022 Active Active Problems Problem Noted Date Diagnosed Date Low back pain 11/10/2012 Social History Tobacco Use Types Packs/Day Years Used Date Smoking Tobacco: Former Cigarettes 0.5 5 Smokeless Tobacco: Never Tobacco Cessation:Counseling Given: Not Answered Comments:2009 quit Alcohol Use Standard Drinks/Week Comments Yes 0 (1 standard drink = 0.6 oz pure alcohol) h/o heavy drinking. Now social drinker. Nothing in . DH IPV Inpatient Questions Answer Date Recorded Does Anyone Try to Keep You From Having Contact with Others or Doing Things Outside Your Home? no 11/07/2022 Feels Threatened by Someone no 10/29 Feels Unsafe at Home or Work/School no 11/07/2022 Physical Signs of Abuse Present no 11/07/2022 Sex and Gender Information Value Date Recorded Sex Assigned at Not on file Gender Identity Not on file Sexual Orientation Not on file Last Filed Vital Signs Vital Sign Reading Time Taken Comments Blood Pressure 128/79 11/07/2022 10:00 AM EST Pulse 80 11/07/2022 10:00 AM EST Temperature 36 ??C (96.8 ??F) 11/07/2022 10:30 AM EST Respiratory Rate 15 11/07/2022 10:00 AM EST Oxygen Saturation 99% 11/07/2022 10:00 AM EST Inhaled Oxygen Concentration - - Weight 104.8 kg (231 lb) 11/07/2022 7:46 AM EST Height 167.6 cm (5' 6) 11/07/2022 7:46 AM EST Body Mass Index 37.28 11/07/2022 7:46 AM EST Plan of Treatment Health Maintenance Due Date Last Done Comments HIV screen 2005 Hepatitis C Screening 2005 Lipid Screening 2005 Hepatitis B vaccine (0-59 yrs) (1) 2006 Tdap adult 2006 Tetanus vaccine 2006 HPV test 2017 PAP Smear 2017 Covid-19 Vaccine ( - 2022-24 season) 2023 Influenza (Flu) vaccine (1 o f 1 - Influenza standard series) 05/01/2024 Care Teams Principal Network Architect Relationship Specialty Start Date End Date Destiney Alexander APRN [address] [place], [place] [id number] PCP - General Family Medicine 10/06/22
--- OUTSIDE RECORDS SUMMARY | 2024-04-29 01:56 | XMS_ITS | Encounter Summary ---
Author Organization [facility] [place] [address] Care Team Providers Care Set Up Inspector Name Role Phone Destiney Alexander APRN Primary Care Provider [phone] Encounter Details Date Type Department Care Team (Latest Contact Info) Description 11/18/2023 Transcribe [place] [phone] Racquel Dixon APRN [address] [place], [place] [id number] Bipolar disorder, in partial remission, most recent episode hypomanic; Prolonged posttraumatic stress disorder Social History Tobacco Use Types Packs/Day Years Used Date Smoking Tobacco: Former Cigarettes 0.5 5 Smokeless Tobacco: Never Comments:2009 quit Alcohol Use Standard Drinks/Week Comments Yes 0 (1 standard drink = 0.6 oz pure alcohol) h/o heavy drinking. Now social drinker. Nothing in . IPV Inpatient Questions Answer Date Recorded Does [...] on file Sexual Orientation Not on file documented as of this encounter Plan of Treatment Scheduled Orders Name Type Priority Associated Diagnoses Orde r Schedule CBC (with Diff) Lab Routine Bipolar disorder, in partial remission, most recent episode hypomanic Prolonged posttraumatic stress disorder Expected: 11/18/2023 (Approximate), Expires: 11/17/2024 Comprehensive metabolic panel (non-fasting) Lab Routine Bipolar disorder, in partial remission, most recent episode hypomanic Prolonged posttraumatic stress disorder Expected: 11/18/2023 (Approximate), Expires: 11/17/2024 TSH Lab Routine Bipolar disorder, in partial remission, most recent episode hypomanic Prolonged posttraumatic stress disorder Expected: 11/18/2023 (Approximate), Expires: 11/17/2024 Vitamin B12 Lab Routine Bipolar disorder, in partial remission, most recent episode hypomanic Prolonged posttraumatic stress disorder Expected: 11/18/2023 (Approximate), Expires: 11/17/2024 Lab Use Only, Fax Request Lab Routine Bipolar disorder, in partial remission, most recent episode hypomanic Prolonged posttraumatic stress disorder Expected: 11/18/2023 (Approximate), Expires: 11/17/2024 Lipid Panel (Reflex Direct LDL) Lab Routine Bipolar disorder, in partial remission, most recent episode hypomanic Prolonged posttraumatic stress disorder Expected: 11/18/2023 (Approximate), Expires: 11/17/2024 [place] level Lab Routine Bipolar disorder, in partial remission, most recent episode hypomanic Prolonged posttraumatic stress disorder Expected: 11/18/2023 (Approximate), Expires: 11/17/2024 T4, free Lab Routine Bipolar disorder, in partial remission, most recent episode hypomanic Prolonged posttraumatic stress disorder Expected: 11/18/2023 (Approximate), Expires: 11/17/2024 documented as of this encounter Visit Diagnoses Diagnosis Bipolar disorder, in partial remission, most recent episode hypomanic Bipolar disorder, unspecified Prolonged posttraumatic stress disorder Posttraumatic stress disorder documented in this encounter Care Teams Set Up Inspector Relationship Specialty Start Date End Date Destiney Alexander APRN [address] [place] [address] PCP - General Family Medicine 10/06/22 documented as of this encounter
--- OUTSIDE RECORDS SUMMARY | 2024-04-29 01:57 | XMS_ITS | Encounter Summary ---
Author Organization [facility] Address [address] [place] [address] Care Team Providers Care Slicing Machine Tender Name Role Phone Unavailable Primary Care Provider Unavailabl e Encounter Details Date Type Department Care Team (Late st Contact Info) Description 05/03/2009 Orders Only [facility] Services - [facility] [place] [place] [address] [place], [place] [address] Luciana Smalls, [facility] [address] [place] [address] Social History Tobacco Use Types Packs/Day Years Used Date Smoking Tobacco: Never Assessed Sex and Gender Information Value Date Recorded Sex Assigned at Not on file Gender Identity Not on file Sexual Orientation Not on file documented as of this encounter Plan of Treatment Not on file documented as of this encounter Procedures Procedure Name Priority Date/Time Associated Diagnosis Comments HPV DETECTION, HIGH RISK TYPES Routine 05/03/2009 10:23 EDT CYTOPATHOLOGY Routine 05/03/2009 0:00 EDT documented in this encounter Results * HUMAN PAPILLOMA VIRUS DNA TEST (05/03/2009 10:23 EDT) Specimen Description Cervix, ThinPrep vial [facility] Result Positive for one or more of HPV types 16,18,31,33,35 ,39,45,51,52,5 6,58,59, or 68. These high/intermedi ate risk HPV types are associated with dysplasia and some cervical cancers. [facility] Report Status Final 05/17/2009 [facility] 05/03/2009 10:2 3 EDT 05/15/2009 10:23 EDT Lucianaeun Siddiquigood EXECUTIVE COACH MICROBIOLOGY - GENER AL ORDERABLES Performing Organization Address City/State/[facility] Co de Phone Number [facility] [address] [place] [address] * CYTOPATHOLOGY (05/03/2009 0:00 EDT) Pathology Report: CYTOPATHOLOGY REPORT ? Reports generated via electronic interface contain original data; ? however they are lacking the format of the original report. ? Caution should be taken when reading/interpreti ng unformatted reports. ? Name: ? SOLANGE ELLIOTT ? Accession #: ? [id number] ? : ? 1985 (Age: 24) ??F ?Collect Date: ? 05/03/2009 ? Location: ? [facility] ? Receive Date: ? 05/04/2009 ? Provider: ?LUCIANA SERINA EXECUTIVE COACH ? Copy to: ? Specimen/Source: ?Pap Test, Cervix/Endocervix, ThinPrep Imaging System ? with manual evaluation ? Last Menstrual Period: ? 8/28/09 ? Other: ? HPVA - HPV testing requested if ASC-US on the current ThinPrep Pap test. ? SPECIMEN ADEQUACY ? Satisfactory for Evaluation ? - transformation zone component present ? GENERAL CATEGORIZATION ? Epithelial Cell Abnormality ? INTERPRETATION ? Squamous Cell Abnormality - Atypical squamous cells, undetermined ? significance (ASC-US). ? EDUCATIONAL NOTES/RECOMMENDATI ONS ? FORMERLY [facility], [facility] recommends following the 2006 Consensus Guidelines for the Management of Women with Abnormal Cervical Cancer Screening Tests (JLGTD, ? 2007;11(4):201-222 ). ??Consensus guidelines are available online at ? www.ASCCP.org. ? Document reviewed and electronically signed by: ? Cm B. Ambaye, MD ? Report Date: ??05/14/2009 13:11 ? End of Report ? [facility] 05/03/2009 05/04/2009 Luciana Smalls EXECUTIVE COACH PATHOLOGY ORDERABLES [facility] [address] [place] [address] documented in this encounter Visit Diagnoses Not on filedocumented in this encounter
--- OUTSIDE RECORDS SUMMARY | 2024-04-29 01:57 | XMS_ITS | Encounter Summary ---
Author Organization [facility] [place] [address] Care Team Providers Care Machine Cage Maker Name Role Phone Cynthia Alexandery DANIELLE Primary Care Provider [phone] Reason for Visit * Auth/Cert (Routine) Specialty Diagnoses / Procedures Referred By Jewel t Referred To Contact Diagnoses Chronic tonsillitis chronic tonsillitis Procedures PRO REMOVAL OF TONSILS, 12+ Y/O TONSILLECTOMY AGE 12 AND OVER (WRVU 3.45) Tanner Amaya MD [facility] [address] [place] [address] [facility] Referral ID Status Reason Start Date Expiration Date Visits Re quested Visits Authorized [id number] 1 1 Encounter Details Date Type Department Care Team (Latest Contact Info) Description 11/07/2022 6:58 AM EST - 11/07/2022 10:37 AM [facility] Hospital Encounter [place] [address] aTnner Amaya MD [facility] [address] [place] [address] Chronic tonsillitis Discharge Disposition: Home Social History Tobacco Use Types Packs/Day Years [...] on file documented as of this encounter Last Filed Vital Signs Vital Sign Reading [...] Mass Index 37.28 11/07/2022 7:46 AM EST documented in this encounter Discharge Instructions * Patient Instructions* Tanner Amaya MD - 11/07/2022 9:27 AM EST Surgical Instructions TONSILLECTOMY and ADENOIDECTOMY Post-Operative Instructions: Expect a sore throat! THE MOST SEVERE PAIN IS USUALLY THE FIRST FEW DAYS AFTER SURGERY (Day 2 and Days 5-6 are often the worst). Patients are reluctant to swallow when there is pain, but it is extremely important that they receive adequate fluid hydration and pain control. Maintain pain control--Adult Patients (Age 13 and over): Use the oxycodone script only as needed. First use the pain regimen outlined below! Use 500mg of Acetaminophen (crushed if needed or liquid form) every 6 hours Use 3 tablets of Motrin 200 mg (crushed if needed or liquid form) every 6 hours Use the lidocaine patch, apply to your neck area and keep on for 12 hours, take off for 12 hours Post Op Diet: Encourage liquids. Adults drink at least 2 ?? quarts (80 oz.) of fluid per day/children drink at least 1?? quarts (48 oz.) On the day of surgery, begin with drinking clear fluids such as water, apple juice, popsicles, Gatorade, Javed Aid, broth or Jello. If no nausea or vomiting, advance to a soft diet as tolerated. Eat foods such as puddings, apple sauce, ice cream, eggs, pancakes, pasta, etc. AVOID ACIDIC, SHARP, CRUNCHY AND SPICY FOODS. The normal healing process produces a soft, white covering over the area of excision. There may be a very foul odor which is normal. By drinking plenty of fluids, this white membrane will slough off in a few weeks. The new tissue will begin to surface. Activity: Quiet activity should be encouraged. For 12-14 days, you should avoid activities that will raise the heart rate (biking, running, skiing, etc.). Normal activities can be resumed after the post- operative evaluation. School or Work: The patient should plan to remain out of work or school until after the post- operative appointment or for approximately 7 days. Recovery time varies from 1 to 2 weeks. Common Post-Operative Complaints: Removal of the tonsils is more painful than removal of the adenoids. The throat is painful for 7-10days after the operation. It is not uncommon for the older teen/adult patient to experience pain upto 14 days. The most severe pain is usually the first few days after surgery (especially Day 2 and Day5 or 6) with gradual improvement for the duration of the healing process. Do not become discouraged. Be consistent with pain control and fluid intake. Avoid aspirin products. Occasionally, a small amount of bloody discharge is seen from the nose or the throat following the operation. This should not alarm you. However, active dripping of bright red blood from the nose or throat is not normal and you should call the office at [phone]. If there is active, profuse bleeding at night or on the weekends, call the office to speak with the doctor soil fertility extension specialist and/or go tothe emergency room. For a small adenoid bleed, which is a slow persistent bloody nasal drip when the head is tilted forward, spray 2 sprays of 12 Hr. Afrin Decongestant Nasal Tracy into each nostril. Keep the head elevated; wait 20 minutes; recheck for drip--call the office if the problem persists. For a small tonsil bleed, which is fresh blood found in predominately clear saliva, gargle for 10 minutes (by the clock) with a mixture of half hydrogen peroxide and half ice water. You can use just ice water if you have no hydrogen peroxide. Wait 20 minutes--call the office if the problem persists. For patients too young to gargle, call the office immediately. A fever of up to 101?? is common for several days after the tonsils are removed. This does not represent an infection. Be sure the patient is receiving plenty of fluids (see guidelines on front side)and taking their pain medication to relieve the fever. If the temperature is higher than 101?? withtreatment (medication and ample fluids), please call the office for advice. Frequently, patients will complain of ear pain after removal of the tonsils. Because the nerve thatgoes to the tonsils also goes to the ears, the brain perceives this pain, called ???referred pain,?? as coming from the ears. If tubes were inserted in the ears at the same time as the tonsillectomy, and the ears are not draining any fluid, you can be sure the patient is experiencing referred painfrom the tonsillectomy rather than a problem with the ears. Neck pain due to surgical positioning is common as well. The patient should receive Tylenol and lots of reassurance for this. documented in this encounter Medications at Time of Discharge Medication Sig Dispensed Refills Start Date End Date Vyvanse 30 mg Capsule Take 30 mg by mouth daily. 06/24/2022 dextroamphetamine-amphe tamine (Adderall) 5 mg Tablet TAKE 1 TO 2 TABLETS BY MOUTH DAILY DIRECTED 04/16/2022 lithium CR (Eskalith) 450 mg Tablet Sustained Release Take 450 mg by mouth daily. 07/03/2022 QUEtiapine (SEROquel) 50 mg Tablet 25 mg. 06/17/2022 lamoTRIgine (LAMICTAL) 200 mg Tablet Take 200 mg by mouth daily. buPROPion (WELLBUTRIN XL) 300 mg Tablet Extended Release 24 hr Take 300 mg by mouth every morning. lidocaine (Lidoderm) 5% Adhesive Patch, Medicated Apply 1 patch onto the skin daily. (leave on for 12 hours and remove for 12 hours) 30 patch 11/07/2022 metoclopramide (REGLAN) 5 mg Tablet 0 08/06/2015 oxyCODONE (Roxicodone) 5 mg/5 mL Solution Take 5 mLs by mouth every 4 hours as needed for Pain for up to 5 days. 150 mL 11/07/2022 11/12/2022 documented as of this encounter Progress Notes * Quang Lawrence RN - 11/07/2022 10:36 AM EST AVS reviewed with pt and with good understanding. IV removed without difficulty. Pt meets discharge criteria at this time. Pt discharged home with . Jocy GUEVARA * Tanner Amaya MD - 11/07/2022 9:12 AM EST Consent for protocol [id number]: EIT- Oral Lesion Study Solange Nichols was seen on 11/07/22 Patient was offered the opportunity to participate in the study [id number]: EIT- Oral Lesion Study. Protocol was reviewed with the patient, including description of the study purpose, potential risks and benefits, the requirements of participation, and the voluntary nature of participation. Discussed confidentiality of patient's private health information as specified in the consent form.@NAME informed that they may discontinue study involvement at any time; informed that declining to participate or discontinuing study treatment will not compromise access to treatment options or careat this institution. Patient was given written informed consent form to read and review. They were given adequate time to review all information and to ask questions and review concerns, all of which were answered to their satisfaction. Patient verbalized understanding of this protocol and consented to [id number]: EIT- Oral Lesion Study. Consent form was signed and dated by patient and myself. Written informed consent was obtained prior to any study procedures being conducted. A copy of the signed consent from was given to the patient. documented in this encounter H&P Notes * Manuel Abel PA - 11/07/2022 8:26 AM EST 24-Hour Pre-Operative H&P Update Patient was seen in the Pre-Operative Area today. I have reviewed, and agree with, the clinical history, physical examination findings, impression, and plan, as detailed in the original H&P Note. No new clinically-significant changes to the patient's health. Patient is ready to proceed with theplanned surgical procedure. JERRY Jaramillo 11/07/22 8:26 AM Pager: [phone] documented in this encounter Miscellaneous Notes * Op Note - Tanner Amaya MD - 11/07/2022 8:46 AM EST Pre/postop diagnosis: Chronic tonsillitis Procedure: Bilateral tonsillectomy Surgeon: Tanner Amaya MD Anesthesia: General EBL: 5 cc Indications: Chronic/recurrent tonsillitis requiring multiple rounds of antibiotics Description: Informed consent obtained and patient placed under general anesthesia. Timeout called.Exposure was achieved with a McGiver retractor. Tonsils were removed using bovie cautery set at 10 monroy. Bipolar was used for hemostasis. 0.75% marcaine was injected in the tonsillar fossa and to provide glossopharyngeal nerve block. Tonsils submitted separately to pathology. Patient tolerated theprocedure well with no complications. Attestation: Case Date: 11/07/2022 I performed this procedure without the involvement of a resident. TANNER AMAYA MD 11/07/2022 documented in this encounter Plan of Treatment Not on file documented as of this encounter Procedures Procedure Name Priority Date/Time Associated Diagnosis Comments SPECIMEN TO PATHOLOGY Routine 11/07/2022 8:49 AM EST SPECIMEN TO PATHOLOGY Routine 11/07/2022 8:49 AM EST SURGICAL PATHOLOGY REPORT Routine 11/07/2022 8:48 AM EST Removal Of Tonsils, 12+ Y/O ([address]) 11/07/2022 8:31 AM EST Chronic tonsillitis POCT URINE Routine 11/07/2022 8:20 AM EST TONSILLECTOMY OVER AGE 12 Routine 11/07/2022 7:02 AM EST Chronic tonsillitis documented in this encounter Results * Specimen to Pathology (11/07/2022 8:49 AM EST) AP Specimen 11/07/2022 8:49 AM EST 11/07/2022 8:49 AM EST Narrative [facility] - 11/07/2022 8:49 AM EST Specimen requisition ordered. ??Separate Pathology report to follow Tanner Amaya MD PATHOLOGY/CYTOLOGY ORDERABLES Performing Organization Address [facility] Co de Phone Number [facility] [place] [address] * Specimen to Pathology (11/07/2022 8:49 AM EST) AP Specimen 11/07/2022 8:49 AM EST 11/07/2022 8:49 AM EST Narrative [facility] - 11/07/2022 8:49 AM EST Specimen requisition ordered. ??Separate Pathology report to follow Tanner Amaya MD PATHOLOGY/CYTOLOGY ORDERABLES Performing Organization Address [facility] [place] [address] * Surgical Pathology Report (11/07/2022 8:48 AM EST) Final Diagnosis [id number] ? Location: [facility]; [facility]; A The signing pathologist has (i) examined the relevant preparation(s) for the specimen(s) and (ii) rendered or confirmed the diagnosis(es). . ?Surgical Pathology DIAGNOSIS A - Left tonsil, excision: Reactive lymphoid hyperplasia with actinomyces granules. B - Right tonsil, excision: Reactive lymphoid hyperplasia. Electronically signed by: ?Can Poppy WOODS Verified: ??11/12/2022 13:55 ??Pathologist Performed at: ??-[facility] Dept. of Pathology, [place] [address] Loom Setter Fourdrinier: Domingo Han MD, FCAP, ??CLIA Certificate: [id number] SPECIMEN(S) SUBMITTED A - LEFT TONSIL, excision (1) B - RIGHT TONSIL, excision (1) CLINICAL INFORMATION Chronic tonsillitis SPECIMEN PROCESSING A - Labeled/Fixative: Left tonsil, fresh. Quantity/Size: Single, 2.4 x 1.4 x 0.9 cm. Tissue Description: Dean-pink, rubbery, focally hemorrhagic tonsil. Cut surfaces are congested, dean-pink focally with grumous dean-yellow material and the tonsillar crypts. Sections/Processi ng: Pony Ride Attendant sections in 1 cassette labeled A1. B - Labeled/Fixative: Right tonsil, fresh. Quantity/Size: Single, 2.3 x 1.8 x 1.0 cm. Tissue Description: Dean-pink, rubbery, focally hemorrhagic tonsil. Cut surfaces are congested, dean-pink. Sections/Processi ng: Pony Ride Attendant sections in 1 cassette labeled B1. ??pps 11/12/2022 1:55 PM EDT [facility] BILATERAL PALATINE TONSILS / Unknown 11/07/2022 8:48 AM EST 11/07/2022 8:48 AM EST BILATERAL PALATINE TONSILS / Unknown 11/07/2022 8:48 AM EST 11/07/2022 8:48 AM EST Tanner Amaya MD PATHOLOGY/CYTOLOGY ORDERABLES [facility] [place] [id number] [facility] [place] [address] * POCT urine (11/07/2022 8:20 AM EST) POC Urine HCG Negative POC Control Internal Controls Acceptable 11/07/2022 8:20 AM EST Ammy Jones CRNA POINT OF CARE TEST ORDERABLES documented in this encounter Visit Diagnoses Diagnosis Chronic tonsillitis documented in this encounter Administered Medications Inactive Administered Medications - up to 3 most recent administrations Medication Order MAR Action Action Date Dose Rate Site acetaminophen (Tylenol) tablet 1,000 mg 1,000 mg, Oral, ONCE, 1 dose, On Thu11/07/22 at 0800, Administer with SIP of H2O only. Maximum dose of acetaminophen is 4,000 mg from all sources in 24 hours., Day of Surgery (Day of Procedure), Routine Given 11/07/2022 7:56 AM EST 1,000 mg oxyCODONE (Roxicodone) (1 mg/mL) oral liquid 5 mg 5 mg, Oral, EVERY 4 HOURS PRN, Starting on Thu11/07/22 at 0938, Until Thu11/07/22 at 1238, Pain, Routine documented in this encounter Active and Recently Administered Medications Times are shown in EST. Scheduled Medication Order 11/05/2022 11/06/2022 11/07/2022 acetaminophen (Tylenol) tablet 1,000 mg (COMPLETED) 1,000 mg, Oral, ONCE, 1 dose, On Thu11/07/22 at 0800, Administer with SIP of H2O only. Maximum dose of acetaminophen is 4,000 mg from all sources in 24 hours., Day of Surgery (Day of Procedure), Routine 0756 (Given - Provid er: Shannan Mejia RN) Continuous Medication Order 11/05/2022 11/06/2022 11/07/2022 lactated ringers infusion (CANCELED) 1,000 mL, at 100 mL/hr, Intravenous, CONTINUOUS, Starting on Thu11/07/22 at 0800, Until Thu11/07/22 at 1037, Day of Surgery (Day of Procedure) 0831 (New Bag - Prov ider: Ammy Jones CRNA)0921 (Anesthesia Volume Adjustment - Provider: Ammy Jonse CRNA) PRN Medication Order 11/05/2022 11/06/2022 11/07/2022 BUpivacaine (pf) (Marcaine) (7.5 mg/mL) 0.75% injection (CANCELED) ONCE PRN, Starting on Thu11/07/22 at 0906, Until Thu11/07/22 at 1238, Intra-Operative (Intra-Procedure), Routine 09 (Given - Provid er: Tanner Amaya MD) oxyCODONE (Roxicodone) (1 mg/mL) oral liquid 5 mg 5 mg, Oral, EVERY 4 HOURS PRN, Starting on Thu11/07/22 at 0938, Until Thu11/07/22 at 1238, Pain, Routine documented in this encounter Care Teams Machine Cage Maker Relationship Specialty Start Date End Date Destiney Alexander APRN [address] [place] [address] PCP - General Family Medicine 10/06/22 documented as of this encounter
--- OUTSIDE RECORDS SUMMARY | 2024-04-29 01:57 | XMS_ITS | Encounter Summary ---
Author Organization [facility] Address [address] [place] [address] Care Team Providers Care Loading Unit Operator Crimping Name Role Phone Lyndon Cullen MD Primary Care Provider Unavailabl e Encounter Details Date Type Department Care Team (Late st Contact Info) Description 04/21/2013 Results Only Imaging [facility] - [facility] [address] [facility] [place] [address] Godwin Keenan PA-C [address] [facility] [place] [address] Social History Tobacco Use Types Packs/Day Years Used Date Smoking Tobacco: Former Cigarettes 0.5 7 0 04/21/2002 - 04/21/2009 Alcohol Use Standard Drinks/Week Comments Yes 0 (1 standard drink = 0.6 oz pur e alcohol) occasionally Sex and Gender Information Value Date Recorded Sex Assigned at Not on file Gender Identity Not on file Sexual Orientation Not on file documented as of this encounter Plan of Treatment Pending Results Name Type Priority Associated Diagnoses Date /Time OUTSIDE CD - MRI NEURO Imaging 12:45 EDT documented as of this encounter Visit Diagnoses Not on filedocumented in this encounter Care Teams Loading Unit Operator Crimping Relationship Specialty Start Date End Date Lyndon Cullen MD PCP - General 05/15/09 02/06/20 documented as of this encounter
--- OUTSIDE RECORDS SUMMARY | 2024-04-29 01:57 | XMS_ITS | Encounter Summary ---
Author Organization [facility] [place] [address] Care Team Providers Care Denture Finisher Name Role Phone Suki Davalos MD Primary Care Provider [phone] Encounter Details Date Type Department Care Team (Latest Contact Info) Description 07/21/2022 Travel Social History Tobacco Use Types Packs/Day Years Used Date Smoking Tobacco: Former Cigarettes 0.5 5 Smokeless Tobacco: Never Comments:2009 quit Alcohol Use Standard Drinks/Week Comments Yes 0 (1 standard drink = 0.6 oz pure alcohol) h/o heavy drinking. Now social drinker. Nothing in . Sex and Gender Information Value Date Recorded Sex Assigned at Not on file Gender Identity Not on file Sexual Orientation Not on file documented as of this encounter Plan of Treatment Not on file documented as of this encounter Visit Diagnoses Not on filedocumented in this encounter Care Teams Denture Finisher Relationship Specialty Start Date End Date Suki Davalos MD [address] [place] [address] PCP - General Family Medicine 03/11/19 10/05/22 documented as of this encounter
--- OUTSIDE RECORDS SUMMARY | 2024-04-29 01:57 | XMS_ITS | Encounter Summary ---
Author Organization [facility] Address [address] [place] [address] Care Team Providers Care Honey Blender Name Role Phone Thierno Cullen MD Primary Care Provider Unavailabl e Encounter Details Date Type Department Care Team (Late st Contact Info) Description 05/10/2014 Results Only [facility] Laboratory Services - [facility] ([facility]) [address], [place] [id number] Maricruz Parikh MD [address] [place] [address] [place] [address] Social History Tobacco Use Types Packs/Day Years [...] Procedure Name Priority Date/Time Associated Diagnosis Comments PAP TEST- RESULT ONLY Routine 05/10/2014 0:00 EDT documented in this encounter Results * PAP TEST- RESULT ONLY (05/10/2014 0:00 EDT) Pathology Report: CYTOPATHOLOGY REPORT Reports generated via electronic interface contain original data; however they are lacking the format of the original report. Caution should be taken when reading/interpreti ng unformatted reports. Name: ? SOLANGE ELLIOTT ? Accession #: ? [id number] : ? 1985 (Age: 29) ??F ?Collect Date: ? 05/10/2014 Location: ? [facility] ? Receive Date: ? 05/11/2014 Provider: ?MARICRUZ PARIKH MD Copy to: ?THIERNO CULLEN MD ? Specimen/Source: ?Pap Test, Cervix/Endocervix, ThinPrep Imaging System with manual evaluation Last Menstrual Period: ? SPECIMEN ADEQUACY ? Satisfactory for Evaluation - transformation zone component present GENERAL CATEGORIZATION ? Negative for Intraepithelial Lesion or Malignancy ? Document reviewed and electronically signed by: ? Christel Antony, CT(ASCP) ? Report Date: ??05/17/2014 11:33 End of Report [facility] 05/10/2014 05/11/2014 Maricruz Parikh MD PATHOLOGY ORDERABLES [facility] [address] [place] [address] documented in this encounter Visit Diagnoses Not on filedocumented in this encounter Care Teams Honey Blender Relationship Specialty Start Date End Date Thierno Cullen MD PCP - General 05/15/09 02/06/20 documented as of this encounter
--- OUTSIDE RECORDS SUMMARY | 2024-04-29 01:57 | XMS_ITS | Encounter Summary ---
Author Organization [facility] [place] [address] Care Team Providers Care Station Cook Name Role Phone Lyndon Cullen MD Primary Care Provider [phone] Encounter Details Date Type Department Care Team (Latest Contact Info) Description 10/09/2010 11:30 AM EST - 10/09/2010 11:59 PM EST Hospital [place] [phone] Unknown None Discharge Disposition: Home Social History Tobacco Use Types Packs/Day Years Used Date Smoking Tobacco: Never Assessed Sex and Gender Information Value Date Recorded Sex Assigned at Not on file Gender Identity Not on file Sexual Orientation Not on file documented as of this encounter Medications at Time of Discharge Medication Sig Dispensed Refills Start Date End Date meloxicam (MOBIC) 15 mg tablet 15 MG = 1 Tablet(s), PO, Once daily 04/25/2010 11/10/2012 documented as of this encounter Plan of Treatment Not on file documented as of this encounter Procedures Procedure Name Priority Date/Time Associated Diagnosis Comments INTEGRATED SCREENING 1 Routine 10/09/2010 11:45 AM EST documented in this encounter Results * INTEGRATED SCREENING 1 (10/09/2010 11:45 AM EST) [facility] Intergrated Screening Part 1 ([facility]) See Note [facility] Comment: Part 1 of the Integrated Screen was drawn. ??For results of the Integrated Screen a second serum sample drawn at 15-21 weeks gestation is required. Test performed by [facility], [address], [place] [address] Blood specimen (specimen) 10/09/2010 11:45 AM EST 10/09/2010 1:21 PM EST Catrachita Strange CNM LAB SEND OUT ORDERAB LES Performing Organization Address City/State/ZIP Co ne Phone Number [facility] documented in this encounter Visit Diagnoses Not on filedocumented in this encounter Care Teams Station Cook Relationship Specialty Start Date End Date Lyndon Cullen MD [address] [place] [address] PCP - General 07/23/10 03/10/19 documented as of this encounter
--- OUTSIDE RECORDS SUMMARY | 2024-04-29 01:57 | XMS_ITS | Encounter Summary ---
Author Organization [facility] [place] [address] Care Team Providers Care Igniter Assembler Name Role Phone Lyndon Cullen MD Primary Care Provider [phone] Encounter Details Date Type Department Care Team (Latest Contact Info) Description 11/01/2015 9:51 AM EST - 11/01/2015 11:59 PM EST Hospital Encounter Ultrasound at [facility] [place], [facility] [place] [address] Saeed Kidd, [address] [place], [place] [address] Screening Discharge Disposition: Home Social History Tobacco Use Types Packs/Day Years Used Date Smoking Tobacco: Former Cigarettes 0.5 5 Smokeless Tobacco: Former Quit: 06/19/2015 Alcohol Use Standard Drinks/Week Comments Yes 0 (1 standard drink = 0.6 oz pure alcohol) h/o heavy drinking. Now social drinker. Nothing in . Comments Yes Sex and Gender Information Value Date Recorded Sex Assigned at Not on file Gender Identity Not on file Sexual Orientation Not on file documented as of this encounter Medications at Time of Discharge Medication Sig Dispensed Refills Start Date End Date metoclopramide (REGLAN) 5 mg Tablet 0 08/06 documented as of this encounter Plan of Treatment Not on file documented as of this encounter Procedures Procedure Name Priority Date/Time Associated Diagnosis Comments US OB SCREENING MORPHOLOGY Routine 11/01/2015 11:35 AM EST Screening documented in this encounter Results * US OB Screening Morphology (11/01/2015 11:35 AM EST) Anatomical Region Laterality Modality Pelvis, Abdomen Ultrasound 11/01/2015 10:0 9 AM EST Impressions 11/01/2015 11:43 AM EST Impression 2nd Trimester - Screening Morphology - Summary Single intrauterine with a gestational age of 23w 0d based on Clinical LINCOLN. Composite age based on the current ultrasound alone is 22w 3d. Current growth parameters are consistent with prior dating indicating normal growth. Amniotic fluid volume is subjectively appropriate for gest age. anatomic evaluation was performed and no structural abnormalities are noted. Limited anatomic evaluation due to positioning and gestational age. Cervical spine not well seen but thoracic and sacral normal. I ??viewed the images and agree with the above interpretation. ? Era Gomes MD Electronically Signed Final Report ?? 11/01/2015 11:42 am Narrative 11/01/2015 11:43 AM EST OBSTETRICS REPORT ?(Signed Final 11/01/2015 11:42 am) Patient Info ID #: ? [id number] ?: ??[birth year] (30 yrs)(F) Name: ? SOLANGE ELLIOTT ?Visit Date: 11/01/2015 10:09 am Performed By Performed By: ? Monse Lopez RDMS Attending: ?Eliseo MELGAR, Era Ferro Referred By: ?SAEED KIDD CNM Service(s) Provided ??UOBS - Screening Morphology - [id number] ? [id number] Indications ??SCREENING MORPHOLOGY; NO GC; LINCOLN ??02/28/16; E - Coordinates with gestational ??age or more than one week OB History Height: ? 5'6 ?Weight: ?? 224 ?BMI: ??36.15 Evaluation Num Of Fetuses: ? 1 Heart ? 148 Rate(bpm): Cardiac Activity: ?? Observed, normal rhythm Presentation: ? Variable Placenta: ? Posterior P. Cord Insertion: ??Within Normal Limits Amniotic Fluid HEDY FV: ?Subjectively appropriate for gest age -------- Biometry -------- BPD: ?53.3 ??mm ? G.Age: ?? 22w 1d OFD: ?77.5 ??mm HC: ?202.4 ??mm ? G.Age: ?? 22w 2d AC: ?178.3 ??mm ? G.Age: ?? 22w 5d FL: ? 38.5 ??mm ? G.Age: ?? 22w 2d HUM: ?37.2 ??mm ? G.Age: ?? 23w 0d CER: ?23.9 ??mm ? G.Age: ?? 22w 0d NFT: ?4.56 ??mm NB: ? 7.92 ??mm LV: ?4.6 ??mm CM: ?3.4 ??mm CI: ?68.8 ??% ? 70 - 86 FL/HC: ? 19.0 ??% ? 19.2 - 20.8 HC/AC: ? 1.14 ?1.05 - 1.21 FL/BPD: ?72.2 ??% ? 71 - 87 FL/AC: ? 21.6 ??% ? 20 - 24 Est. FW: ? 511 ?? gm ? 1 lb 2 oz Gestational Age Clinical LINCOLN: ??23w 0d ?LINCOLN: ?? 02/28/16 U/S Today: ? 22w 3d ?LINCOLN: ?? 03/03/16 Best: ?23w 0d ?? Det. By: ??Clinical LINCOLN ? LINCOLN: ?? 02/28/16 ------- Anatomy ------- Cranium: ?Within Normal Limits Cavum: ?Visualized Ventricles: ? Within Normal Limits Choroid Plexus: ? Visualized Cerebellum: ? Within Normal Limits Posterior Fossa: ?Within Normal Limits Nuchal Fold: ?Not evaluated at this gestational age. Face: ? Nose/Lips seen- WNL Heart: ?4 chamber view appears normal RVOT: ? Visualized LVOT: ? Visualized Diaphragm: ?Visualized Stomach: ?Visualized Abdomen: ?Visualized Abdominal Wall: ? Cord Insertion - WNL Cord Vessels: ? 3 vessels - WNL Kidneys: ?Visualized Bladder: ?Visualized Spine: ?Limited due to late gestational age. Upper ? Visualized Extremities: Lower ? Visualized Extremities: Other: ??Nasal bone: Present Cervix Uterus Adnexa Left Ovary Size(cm) ? 3.5 ??x ?? 2.35 ?? x ??0.92 ?Vol(ml): 4.0 Visualized Right Ovary Size(cm) ? 3.3 ??x ?? 2.49 ?? x ??1.4 ? Vol(ml): 6.0 Visualized Procedure Note Era Gomes MD - 11/01/2015 OBSTETRICS REPORT (Signed Final 11/01/2015 11:42 am) Patient Info ID #: [id number] : [birth year] (30 yrs)(F) Name: SOLANGE ELLIOTT Visit Date: 11/01/2015 10:09 am Performed By Performed By: Monse Lopez RDMS Attending: Era Gomes MD Referred By: SAEED KIDD CNM Service(s) Provided UOBS - Screening Morphology - [id number] Indications SCREENING MORPHOLOGY; NO GC; LINCOLN 02/28/16; E - Coordinates with gestational age or more than one week OB History Height: 5'6 Weight: 224 BMI: 36.15 Evaluation Num Of Fetuses: 1 Heart 148 Rate(bpm): Cardiac Activity: Observed, normal rhythm Presentation: Variable Placenta: Posterior P. Cord Insertion: Within Normal Limits Amniotic Fluid HEDY FV: Subjectively appropriate for gest age -------- Biometry -------- BPD: 53.3 mm G.Age: 22w 1d OFD: 77.5 mm HC: 202.4 mm G.Age: 22w 2d AC: 178.3 mm G.Age: 22w 5d FL: 38.5 mm G.Age: 22w 2d HUM: 37.2 mm G.Age: 23w 0d CER: 23.9 mm G.Age: 22w 0d NFT: 4.56 mm NB: 7.92 mm LV: 4.6 mm CM: 3.4 mm CI: 68.8 % 70 - 86 FL/HC: 19.0 % 19.2 - 20.8 HC/AC: 1.14 1.05 - 1.21 FL/BPD: 72.2 % 71 - 87 FL/AC: 21.6 % 20 - 24 Est. FW: 511 gm 1 lb 2 oz Gestational Age Clinical LINCOLN: 23w 0d LINCOLN: 02/28/16 U/S Today: 22w 3d LINCOLN: 03/03/16 Best: 23w 0d Det. By: Clinical LINCOLN LINCOLN: 02/28/16 ------- Anatomy ------- Cranium: Within Normal Limits Cavum: Visualized Ventricles: Within Normal Limits Choroid Plexus: Visualized Cerebellum: Within Normal Limits Posterior Fossa: Within Normal Limits Nuchal Fold: Not evaluated at this gestational age. Face: Nose/Lips seen- WNL Heart: 4 chamber view appears normal RVOT: Visualized LVOT: Visualized Diaphragm: Visualized Stomach: Visualized Abdomen: Visualized Abdominal Wall: Cord Insertion - WNL Cord Vessels: 3 vessels - WNL Kidneys: Visualized Bladder: Visualized Spine: Limited due to late gestational age. Upper Visualized Extremities: Lower Visualized Extremities: Other: Nasal bone: Present Cervix Uterus Adnexa Left Ovary Size(cm) 3.5 x 2.35 x 0.92 Vol(ml): 4.0 Visualized Right Ovary Size(cm) 3.3 x 2.49 x 1.4 Vol(ml): 6.0 Visualized IMPRESSION Impression 2nd Trimester - Screening Morphology - Summary Single intrauterine with a gestational age of 23w 0d based on Clinical LINCOLN. Composite age based on the current ultrasound alone is 22w 3d. Current growth parameters are consistent with prior dating indicating normal growth. Amniotic fluid volume is subjectively appropriate for gest age. anatomic evaluation was performed and no structural abnormalities are noted. Limited anatomic evaluation due to positioning and gestational age. Cervical spine not well seen but thoracic and sacral normal. I viewed the images and agree with the above interpretation. Era Gomes MD Electronically Signed Final Report 11/01/2015 11:42 am Saeed Kidd CNM IMG OB [facility] documented in this encounter Visit Diagnoses Diagnosis Screening Screening for unspecified condition documented in this encounter Care Teams Igniter Assembler Relationship Specialty Start Date End Date Lyndon Cullen MD [address] [place] [address] PCP - General 07/23/10 03/10/19 documented as of this encounter
--- OUTSIDE RECORDS SUMMARY | 2024-04-29 01:57 | XMS_ITS | Encounter Summary ---
Author Organization [facility] Address [facility] [place] [address] Care Team Providers Care Maintenance Repairman Name Role Phone Lyndon Cullen MD Primary Care Provider [phone] Reason for Visit * Reason Comments Ultrasound Finding Advice Only * Consultation (Routine) - Closed Specialty Diagnoses / Procedures Referred By Jewel mendez Referred To Contact Maternal and Medicine / Obstetrics and Gynecology Diagnoses anxiety attacks, ? meds. Rucerrent loss x 4 Procedures anxiety attacks, ? meds. Rucerrent loss x [address] [place] [address] [facility] [employer] [address] [place] [address] Referral ID Status Reason Start Date Expiration Date Visits Re quested Visits Authorized [id number] Closed 08/09/2015 08/08/2016 1 1 Encounter Details Date Type Department Care Team (Late st Contact Info) Description 08/21/2015 2:45 PM EST Office Visit Obstetrics [place] [address] Goran Santos MD [facility] [address] [place] [address] screening encounter; History of recurrent , currently , first trimester; Anxiety Social History Tobacco Use Types Packs/Day Years [...] Sign Reading Time Taken Comments Blood Pressure 124/66 08/21/2015 2:44 PM EST Pulse - - Temperature - - Respiratory Rate - - Oxygen Saturation - - Inhaled Oxygen Concentration - - Weight 101.7 kg (224 lb 1.6 oz) 08/21/2015 2:44 PM EST Height 167.6 cm (5' 6) 08/21/2015 2:44 PM EST Body Mass Index 36.17 08/21/2015 2:44 PM EST documented in this encounter Progress Notes * Goran Santos MD - 08/21/2015 6:00 PM EST I saw and evaluated the patient with Dr. Moreno (resident). I have reviewed the resident's history during the visit and I agree with the details as written. My physical examination confirms the resident's findings. The assessment and plan were formulated in discussion with me at the time of the visit and I agree with them as documented. Pertinent History: The patient has a history of several very early losses. She has had a viability scan earlier this . Her impression is that she was coming today for a nuchal translucency scan for first trimester screen. Anxiety - the patient is not concerned with addressing this now Pertinent Exam: Appears well Major issues addressed: Reassurance about the viability of this pregnnacy Plan: We managed to get her a nuchal translucency study done today. The results should be availablein 1-2 weeks. Goran Santos MD * Elvira Moreno - 08/21/2015 2:53 PM EST Maternal Medicine Consult Note Solange Elliott is a 30 y.o. with an LINCOLN of 6/30/16 who is at 12w5d gestation by LMP. Sheis seen in consultation at the request of Tona Jewell CNM for evaluation of recurrent loss and anxiety attacks. The patient wanted to have a screen for down syndrome today. The patient reports that this has been otherwise uncomplicated to date. Solange reports that she has had 4 prior miscarriages at approximately 4-5 weeks gestation. She would have a positive test close to the date of her expected menses with onset of bleeding oneweek later. Her Past Medical and Surgical history is remarkable for: Anxiety - currently taking meds in the past. Nothing currently. A family history was obtained. Their son has epilepsy. Maternal grandmother, father and paternal aunt have DM. Maternal grandmother had breast cancer in her 60s. Maternal grandmother had a stillborn.There is no other history of structural abnormalities, inheritable disease, learning disability, mental retardation, or repetitive loss. Both . The ethnic backgrounds do not suggest a significantly increased genetic risk. Current meds: None (unable to tolerate vitamins) Allergies Allergen Reactions ??? Prochlorperazine Unknown Record Review No additional issues Review of Systems Constitutional: nausea/vomiting. 13lb weight loss over the last 4 weeks. Now it is improving no vomiting, just nausea. Able to stay hydrated and tolerate small meals now. Contractions: none Leaking: none Bleeding: none Physical Exam Last Set of Vitals: Blood pressure 124/66, height 167.6 cm (5' 6), weight 101.651 kg (224 lb 1.6 oz). Body mass index is 36.19 kg/(m^2). General: alert, well appearing, in no apparent distress Abdomen: abdomen is soft without significant tenderness Psychiatric: Affect is appropriate. Uterine Size: consistent with dates Ultrasound Viable intrauterine at 12 + 6/7 weeks Assessment and Recommendations: 30y.o. at 12w5d weeks gestation who presents for evaluation due to recurrent lossand anxiety attacks. Viable intrauterine seen on ultrasound. Will send back to ultrasoundfor first trimester screen. H/o substance abuse - pt has not used any drugs in approximately 5 years. Former smoker Anxiety- pt reports that her mood is controlled and she declines medication during . We appreciate the opportunity to be involved in this patient's care and am available if further questions should arise. Pt seen and discussed with DEONNA Dailey Attending. ELVIRA MORENO MD PGY4 08/21/2015 documented in this encounter Plan of Treatment Not on file documented as of this encounter Results * US OB Nuchal Translucency (08/21/2015 3:44 PM EST) Anatomical Region Laterality Modality Pelvis, Abdomen Ultrasound 08/21/2015 3:41 PM EST Impressions 08/21/2015 4:09 PM EST Impression 1st Trimester NT Summary Addendum: ??Additional history provided for proper billing and coding. Single living intrauterine with a gestational age of 12w 5d based on clinical LINCOLN. The crown rump length corresponds to a gestational age of 12w 6d. Nuchal translucency examination was performed. I ??viewed the images and agree with the above interpretation. ? Goran Santos MD Electronically Signed Corrected Final Report ??09/17/2015 03:23 pm Narrative 08/21/2015 4:09 PM EST OBSTETRICS REPORT ?(Corrected Final 09/17/2015 03:23 ? pm) Patient Info ID #: ? [id number] ?: ??[birth year] (30 yrs)(F) Name: ? SOLANGE ELLIOTT ?Visit Date: 08/21/2015 03:41 pm Performed By Performed By: ? Daisha Donato RDMS Attending: ?Tom MELGAR, Goran Mcdaniels Referred By: ?GORAN SANTOS MD Service(s) Provided ??UNT - Nuchal Translucency - First Trimester ? [id number] ??Screening - [id number] Indications ??genetic screening; A - within 6 hours. ??Recurrent loss OB History Height: ? 5'6 ?Weight: ?? 224 ?BMI: ??36.15 Evaluation Num Of Fetuses: ? 1 Presentation: ? Variable Placenta: ? too early to evaluate -------- Biometry -------- CRL: ?64.6 ??mm ? G.Age: ?? 12w 6d ?LINCOLN: ?? 02/27/16 NT: ?1.7 ??mm Gestational Age Clinical LINCOLN: ??12w 5d ?LINCOLN: ?? 02/28/16 Best: ?12w 5d ?? Det. By: ??Clinical LINCOLN ? LINCOLN: ?? 02/28/16 Procedure Note Goran Santos MD - 11/26/2015 OBSTETRICS REPORT (Corrected Final 09/17/2015 03:23 pm) Patient Info ID #: [id number] : [birth year] (30 yrs)(F) Name: SOLANGE ELLIOTT Visit Date: 08/21/2015 03:41 pm Performed By Performed By: Daisha Donato RDMS Attending: Goran Santos MD Referred By: GORAN SANTOS MD Service(s) Provided UNT - Nuchal Translucency - First Trimester 02471 Screening - [id number] Indications genetic screening; A - within 6 hours. Recurrent loss OB History Height: 5'6 Weight: 224 BMI: 36.15 Evaluation Num Of Fetuses: 1 Presentation: Variable Placenta: too early to evaluate -------- Biometry -------- CRL: 64.6 mm G.Age: 12w 6d LINCOLN: 02/27/16 NT: 1.7 mm Gestational Age Clinical LINCOLN: 12w 5d LINCOLN: 02/28/16 Best: 12w 5d Det. By: Clinical LINCOLN LICNOLN: 02/28/16 IMPRESSION Impression 1st Trimester NT Summary Addendum: Additional history provided for proper billing and coding. Single living intrauterine with a gestational age of 12w 5d based on clinical LINCOLN. The crown rump length corresponds to a gestational age of 12w 6d. Nuchal translucency examination was performed. I viewed the images and agree with the above interpretation. Goran Santos MD Electronically Signed Corrected Final Report 09/17/2015 03:23 pm Goran Santos MD IMG US OB ORDERABLES documented in this encounter Visit Diagnoses Diagnosis screening encounter Unspecified screening History of recurrent , currently , first trimester Anxiety Anxiety state, unspecified screening encounter Unspecified screening documented in this encounter Care Teams Maintenance Repairman Relationship Specialty Start Date End Date Lyndon Cullen MD [address] [place] [address] PCP - General 07/23/10 03/10/19 documented as of this encounter
--- OUTSIDE RECORDS SUMMARY | 2024-04-29 01:57 | XMS_ITS | Encounter Summary ---
[place] [address] Care Team Providers Care Diesel Service Technician Name Role Phone Lyndon Cullen MD Primary Care Provider [phone] Encounter Details Date Type Department Care Team (Late st Contact Info) Description 11/08/2012 [facility] [place] [id number] Shruti Meneses, RESPIRATORY DIRECTOR Social History Tobacco Use Types Packs/Day Years Used Date Smoking Tobacco: Never Assessed Sex and Gender Information Value Date Recorded Sex Assigned at Not on file Gender Identity Not on file Sexual Orientation Not on file documented as of this encounter Plan of Treatment Not on file documented as of this encounter Visit Diagnoses Not on filedocumented in this encounter Care Teams Diesel Service Technician Relationship Specialty Start Date End Date Lyndon Cullen MD [address] [place] [address] PCP - General 07/23/10 03/10/19 documented as of this encounter
--- OUTSIDE RECORDS SUMMARY | 2024-04-29 01:57 | XMS_ITS | Encounter Summary ---
Author Organization [facility] Address [address] [place] [address] Care Team Providers Care Civil Structural Designer Name Role Phone Lyndon Cullen MD Primary Care Provider Unavailabl e Encounter Details Date Type Department Care Team (Late st Contact Info) Description 10/19/2012 Results Only [facility] Laboratory Services - [facility] ([facility] [place] [address], [place] [id number] Leslie Jaffe MD [address] [facility] [place] [address] Social History Tobacco Use Types Packs/Day Years [...] Diagnosis Comments PAP TEST- RESULT ONLY Routine 10/19/2012 0:00 EST documented in this encounter Results * PAP TEST- RESULT ONLY (10/19/2012 0:00 EST) Pathology Report: CYTOPATHOLOGY REPORT Reports generated via electronic interface contain original data; however they are lacking the format of the original report. Caution should be taken when reading/interpreti ng unformatted reports. Name: ? SOLANGE ELLIOTT ? Accession #: ? [id number] : ? 1985 (Age: 27) ??F ?Collect Date: ? 10/19/2012 Location: ? [facility] ? Receive Date: ? 10/21/2012 Provider: ?LESLIE JAFFE MD Copy to: ? Specimen/Source: ?Pap Test, Cervix/Endocervix, ThinPrep Imaging System with manual evaluation Last Menstrual Period: ? 10/04/12 Previous Gynecologic Pathology: ? ASC-US: 01/08 HPV: + 01/08, 05/11 Other: ? Additional clinical information: pap NIL 05/11, 11/09 with no HPV testing ? SPECIMEN ADEQUACY ? Satisfactory for Evaluation - transformation zone component present GENERAL CATEGORIZATION ? Negative for Intraepithelial Lesion or Malignancy ? Document reviewed and electronically signed by: ? OZZY Forman(ASCP) ? Report Date: ??10/25/2012 13:10 End of Report [facility] 10/19/2012 10/21/2012 Leslie Jaffe MD PATHOLOGY ORDERABLES [facility] [address] [place] [address] documented in this encounter Visit Diagnoses Not on filedocumented in this encounter Care Teams Civil Structural Designer Relationship Specialty Start Date End Date Lyndon Cullen MD PCP - General 05/15/09 02/06/20 documented as of this encounter
--- OUTSIDE RECORDS SUMMARY | 2024-04-29 01:57 | XMS_ITS | Encounter Summary ---
Author Organization [facility] [place] [address] Care Team Providers Care Seed Collector Name Role Phone Suki Davalos MD Primary Care Provider [phone] Encounter Details Date Type Department Care Team (Late st Contact Info) Description 08/06/2022 Telephone Otolaryngology at [facility] [place] [phone] Celeste Mcarthur Social History Tobacco Use Types Packs/Day Years [...] on file documented as of this encounter Miscellaneous Notes * Telephone Encounter - Celeste Mcarthur - 08/06/2022 9:50 AM EST Patient called and Is eager to get her surgery scheduled, I did let her know that Dr. Amaya listed it as not urgent so other more urgent cases are being worked first and she is ok with that but seems to at least want to get on the books. [phone] is her correct number. documented in this encounter Plan of Treatment Not on file documented as of this encounter Visit Diagnoses Not on filedocumented in this encounter Care Teams Seed Collector Relationship Specialty Start Date End Date Suki Davalos MD [address] [place] [address] PCP - General Family Medicine 03/11/19 10/05/22 documented as of this encounter
--- OUTSIDE RECORDS SUMMARY | 2024-04-29 01:57 | XMS_ITS | Encounter Summary ---
[place] [address] Care Team Providers Care Franchise Business Consultant Name Role Phone Suki Davalos MD Primary Care Provider [phone] Encounter Details Date Type Department Care Team (Latest Contact Info) Description 08/16/2022 Transcribe [place] [phone] Racquel Dixon, QUALITY SYSTEMS ENGINEER [address] [place], [place] [address] Chronic posttraumatic stress disorder; Tremor; Manic bipolar I disorder in partial remission Social History Tobacco Use Types Packs/Day Years [...] as of this encounter Visit Diagnoses Diagnosis Chronic posttraumatic stress disorder Posttraumatic stress disorder Tremor Abnormal involuntary movements Manic 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
--- OUTSIDE RECORDS SUMMARY | 2024-04-29 01:57 | XMS_ITS | Encounter Summary ---
Author Organization [facility] Address [address] [place] [address] Care Team Providers Care Cableway Operator Name Role Phone Lyndon Cullen MD Primary Care Provider Jeromy ku Encounter Details Date Type Department Care Team (Late st Contact Info) Description 06/21/2010 Results Only [facility] Laboratory Services - [facility] ([facility] [place] [address], [place] [address] Luciana Smalls, [facility] [address] [place] [address] Social History Tobacco Use Types Packs/Day Years Used Date Smoking Tobacco: Never Assessed Sex and Gender Information Value Date Recorded Sex Assigned at Not on file Gender Identity Not on file Sexual Orientation Not on file documented as of this encounter Plan of Treatment Not on file documented as of this encounter Procedures Procedure Name Priority Date/Time Associated Diagnosis Comments CYTOPATHOLOGY Routine 06/21/2010 0:00 EDT documented in this encounter Results * CYTOPATHOLOGY (06/21/2010 0:00 EDT) Pathology Report: CYTOPATHOLOGY REPORT ? Reports generated via electronic interface contain original data; ? however they are lacking the format of the original report. ? Caution should be taken when reading/interpreti ng unformatted reports. ? Name: ? SOLANGE ELLIOTT ? Accession #: ? [id number] ? : ? 1985 (Age: 25) ??F ?Collect Date: ? 06/21/2010 ? Location: ? [facility] ? Receive Date: ? 06/24/2010 ? Provider: LUCIANA CHADWICK HEARING THERAPIST ? Copy to: ? Final Report ? SPECIMEN ADEQUACY ? Satisfactory for Evaluation ? - transformation zone component present ? GENERAL CATEGORIZATION ? Epithelial Cell Abnormality ? INTERPRETATION ? Squamous Cell Abnormality - Atypical squamous cells, undetermined ? significance (ASC-US). ? EDUCATIONAL NOTES/RECOMMENDATI ONS ? [facility] recommends following the 2006 Consensus Guidelines for the Management of Women with Abnormal Cervical Cancer Screening Tests (JLGTD, ? 2007;11(4):201-222 ). ??Consensus guidelines are available online at ? www.ASCCP.org. ? Last Menstural Period: 9/30/10 ? Previous Gynecologic Pathology: ASC-US: 9/3/09 ? HPV: + 9/3/09 ? Treatment History: Colposcopy: 06/07/09 neg no bx's ? Specimen/Source: ??Pap Test, Cervix/Endocervix, ThinPrep Imaging System with ? manual evaluation ? Document reviewed and electronically signed by: ? BETO HARGROVE MD ? Report ??Date: 06/27/2010 15:36 ? HPV with Pap Test ? Date Ordered: ? 06/27/2010 ? Status: ?? Signed Out ?Date Complete: ? 07/01/2010 ? By: ??System Interface ? Date Reported: ? 07/01/2010 ? Interpretation ? RESULT: Positive for one or more of HPV types 16,18,31,33,35,39, 45, ? 51,52,56,58,59, or 68. These high/intermediate risk HPV ? types are associated with dysplasia and some cervical ? cancers. ? Comments ? Document reviewed and electronically signed by: ? System Interface ? Report date: 07/01/2010 ? By the signature above, the attending physician certifies that he/she has ? personally conducted a gross and/or microscopic examination of the described ? specimens and rendered or confirmed the above diagnosis. ? End of Report ? [facility] 06/21/2010 06/24/2010 Luciana Smalls HEARING THERAPIST PATHOLOGY ORDERABLES Performing Organization Address City/State/[facility] Co de Phone Number [facility] [address] [place] [address] documented in this encounter Visit Diagnoses Not on filedocumented in this encounter Care Teams Cableway Operator Relationship Specialty Start Date End Date Lyndon Cullen MD PCP - General 05/15/09 02/06/20 documented as of this encounter
--- OUTSIDE RECORDS SUMMARY | 2024-04-29 01:57 | XMS_ITS | Encounter Summary ---
Author Organization [facility] [place] [address] Care Team Providers Care Safety Lead Name Role Phone Lyndon Cullen MD Primary Care Provider [phone] Reason for Visit * Reason Comments Back Pain Bilateral Leg Pain Encounter Details Date Type Department Care Team (Late st Contact Info) Description 11/10/2012 12:20 PM EDT Office [place] [address] [facility] [place] [address] Low back pain (Primary Dx) Discharge Disposition: Home Social History Tobacco Use Types Packs/Day Years Used Date Smoking Tobacco: Never Sex and Gender Information Value Date Recorded Sex Assigned at Not on file Gender Identity Not on file Sexual Orientation Not on file documented as of this encounter Last Filed Vital Signs Vital Sign Reading Time Taken Comments Blood Pressure 110/72 11/10/2012 1:00 PM EDT Pulse - - Temperature - - Respiratory Rate - - Oxygen Saturation - - Inhaled Oxygen Concentration - - Weight 88.5 kg (195 lb) 11/10/2012 1:00 PM EDT Height 168.9 cm (5' 6.5) 11/10/2012 1:00 PM EDT Body Mass Index 31 11/10/2012 1:00 PM EDT documented in this encounter Patient Instructions * Patient Instructions* Emi Goldstein LPN - 11/10/2012 1:03 PM EDT Welcome to [facility], your secure online access to your electronic medical record at [facility]. Using [employer] you will be able to send messages to your providers, view your test results, renew prescriptions, schedule appointments, and much more. Follow these instructions to enter your personal [employer] account for the first time: 1. Start your internet browser and type [email or web address] into the address bar. 2. In the New User box on the right-hand side of the Welcome page click the link that states, ???I have an activation code.?? 3. On the Identification page, follow these steps: a) Enter your [employer]is activation code: [email or web address] b) Expires: 12/25/2012 1:03 PM IMPORTANT: This Activation Code will on the above mentioned date. If you do not sign up for [employer] by this date, you will need to request another activation code. c) Enter your date of , using the calendar tool provided. d) Enter your Zip code. e) Select ???submit?? to go to the next page. 4. On the Create Account page, follow these steps: a) Create a [employer]is username. This can???t be changed, so choose one you won???t forget. b) Create a password that???s at least six characters long, and that contains at least two numbers.Your password can be changed at any time. Confirm your password by entering it once more. c) Enter your email address. This will be used to alert you to new information. Confirm your email address by entering it once more. d) Enter your security question. This will be used if you forget your password. e) Enter your security answer. Confirm your security answer by entering it once more. f) Select ???submit?? to view your electronic medical record. If you have any questions about [employer] or your Access Code, please call for [place], for [place] or for [place]. If you need technical support, please e-mail [email or web address]. Remember, myD-H is NOT for urgent needs! Always dial 911 for medical emergencies. documented in this encounter Progress Notes * Jesus Valladares MD - 11/10/2012 2:21 PM EDT Office note on Solange Nichols. I have just seen Solange Nichols [facility] at the request of Lyndon Cullen M.D. for evaluation of low back pain and lower extremity pains and numbness. The patient is a 27-year-old female who has a long history of low back pain and has seen the [facility] on multiple occasions. She apparently had a new MRI scan and was referred here for a L5-S1 disk herniation. I reviewed the MRI with her and told her that in my estimation I would find this hard to call a disk herniation in the truest sense. Rather, I think that this is more of a small bulging disk. She does not have any significant neural compromise from this as the overall disk protrusion measures approximately 3 to 4 mm. At her age and with this minimal radiologic finding, I do not think that surgery would be a stevens idea for her. I think given the entire constellation of her symptoms, she would be a better candidate for our Functional [facility] as a means to get her symptomatically improved and hopefully back into activities. I explained to her and showed a printout of her MRI that this looks more as a small protrusion and would not be an area that can be significantly improved upon from a surgeon's standpoint. It does seem as though we do not have any record of her having an epidural steroid injection, and this might be another alternative that she could try. However, at this point I do not think that surgery would be beneficial for her unless she had a significant anatomical change and symptoms more specifically related to a straightforward radiculopathy. She expressed understanding and was given a video of our Functional [facility]. * Nia Farley, PT - 11/10/2012 1:55 PM EDT Solange Nichols was seen in the [facility] for an evaluation in conjunction with Jesus Umana from the neurosurgical service. She came here with the expectations to see if there is anything that can be done from a surgical point of view to relieve her symptoms. History of present illness: Ms. Nichols reports shortly after giving 6 years ago she began to have low back pain which has steadily worsened over time. Past treatments have included a right and left SI joint injection which did not provide her with lasting pain relief. She has also been seenby physical therapy and prescribed several different types of medications which also did not relieve the pain. Ms. Nichols currently complains of low back pain radiating to bilateral buttocks and intermittently down the posterior aspect of the right thigh to the proximal calf and rarely down the left posterior thigh. The low back pain is worse than the leg pain. The pain is rated 5/10 at its least and 9/10 at its worst. She reports intermittent numbness and tingling down the posterior aspect of the right thigh and denies weakness. She is unable to identify any particular activity which worsens or lessens the pain. Sleep is occasionally disturbed due to the pain. When asked about a gait or balance disturbance she reports being hunched over when the pain is severe. She denies fevers, chills, unexplained weight loss, night sweats, or gastrointestinal symptoms. Coughing, sneezing, and straining has no effect on the pain. Bowel and bladder function is normal. 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 She doesnot use any tobacco, drinks alcohol occasionally, and is not involved in a structured exercise program. Physical exam: Ms. Nichols is a 27 y.o. female with a stated height 5 feet 6 inches and weight of 195 lbs. who moves about in the exam room without difficulty and appears comfortable while seated. Sitting posture is poor and standing posture is good. Examination of the low back in the standing position reveals a normal lumbar lordosis and there is not a lateral shift of the lumbar spine on the pelvis. Gait is unremarkable. She is able to heel/toe walk and squat fully. Active range of motion ofthe lumbar spine is limited to 40?? flexion and 20?? extension. End range flexion and extension worsens the low back pain. Strength is 5/5 bilateral lower extremities. There is diminished sensation to light touch down the lateral aspect of the left lower extremity to the lateral foot. Patellar and Achilles tendon reflexes are 2+ and symmetric. Sciatic nerve tension test worsens the low back pain at 80?? bilaterally but does not reproduce the leg symptoms. Femoral nerve tension test worsens the low back pain but does not reproduce the leg pains. She has a 2 beat clonus bilaterally. Toes are downgoing. Passive range of motion of bilateral hips is full and painless. There is no lower extremitymuscle atrophy. Assessment/ Treatment plan: Ms. Nichols was seen in with Jesus Valladares M.D. Please refer to Dr. Valladares note for details. documented in this encounter Plan of Treatment Not on file documented as of this encounter Visit Diagnoses Diagnosis Low back pain- Primary Lumbago documented in this encounter Care Teams Safety Lead Relationship Specialty Start Date End Date Lyndon Cullen MD [address] [place] [address] PCP - General 07/23/10 03/10/19 documented as of this encounter
--- OUTSIDE RECORDS SUMMARY | 2024-04-29 01:57 | XMS_ITS | Encounter Summary ---
Author Organization [facility] Address [address] [place] [address] Care Team Providers Care Watch Engine Operator Name Role Phone Lyndon Cullen MD Primary Care Provider Unavailabl e Encounter Details Date Type Department Care Team (Late st Contact Info) Description 04/25/2013 Results Only Imaging [facility] [phone] Unknown, ProviderMD Social History Tobacco Use Types Packs/Day Years [...] Associated Diagnoses Date /Time OUTSIDE CD - PLAIN FILM MSK Imaging 04/25/2013 15:56 EDT OUTSIDE CD - OTHER NEURO Imaging 04/25/2013 16:34 EDT OUTSIDE CD - OTHER NEURO Imaging 04/25/2013 16:37 EDT OUTSIDE CD - OTHER NEURO Imaging 04/25/2013 16:40 EDT documented as of this encounter Visit Diagnoses Not on filedocumented in this encounter Care Teams Watch Engine Operator Relationship Specialty Start Date End Date Lyndon Cullen MD PCP - General 05/15/09 02/06/20 documented as of this encounter
--- OUTSIDE RECORDS SUMMARY | 2024-04-29 01:57 | XMS_ITS | Encounter Summary ---
Author Organization [facility] [place] [address] Care Team Providers Care Sports Anchor Name Role Phone Lyndon Cullen MD Primary Care Provider [phone] Encounter Details Date Type Department Care Team (Late st Contact Info) Description 09/28/2012 [place] [address] Jesus Valladares MD [facility] [place] [address] Social History Tobacco Use Types Packs/Day Years Used Date Smoking Tobacco: Never Assessed Sex and Gender Information Value Date Recorded Sex Assigned at Not on file Gender Identity Not on file Sexual Orientation Not on file documented as of this encounter Plan of Treatment Not on file documented as of this encounter Procedures Procedure Name Priority Date/Time Associated Diagnosis Comments FILM LIBRARY STORAGE ONLY MR SPINE Routine 09/28/2012 7:17 AM EST documented in this encounter Results * Film Library- Storage only MR Spine (09/28/2012 7:17 AM EST) Anatomical Region Laterality Modality Other 09/28/2012 7:17 AM EST Narrative 10/03/2013 10:54 PM EST This is a non-reportable exam. Procedure Note Lance Marquez - 10/03/2013 This is a non-reportable exam. Jesus Valladares MD IMG FILM LIBRARY ORD ERABLES documented in this encounter Visit Diagnoses Not on filedocumented in this encounter Care Teams Sports Anchor Relationship Specialty Start Date End Date Lyndon Cullen MD [address] [place] [address] PCP - General 07/23/10 03/10/19 documented as of this encounter
--- OUTSIDE RECORDS SUMMARY | 2024-04-29 01:57 | XMS_ITS | Encounter Summary ---
Author Organization [facility] [place] [address] Care Team Providers Care Access Services Assistant Name Role Phone Lyndon Cullen MD Primary Care Provider [phone] Encounter Details Date Type Department Care Team (Late st Contact Info) Description 08/07/2015 Orders Only Obstetrics [place] [address] Zamzam Santos MD [facility] [address] OBSTETRICS [place] [address] Supervision of high risk in first trimester Social History Tobacco Use Types Packs/Day Years Used Date Smoking Tobacco: Never Sex and Gender Information Value Date Recorded Sex Assigned at Not on file Gender Identity Not on file Sexual Orientation Not on file documented as of this encounter Plan of Treatment Not on file documented as of this encounter Visit Diagnoses Diagnosis Supervision of high risk in first trimester Unspecified high-risk documented in this encounter Care Teams Access Services Assistant Relationship Specialty Start Date End Date Lyndon Cullen MD [address] [place] [address] PCP - General 07/23/10 03/10/19 documented as of this encounter
--- OUTSIDE RECORDS SUMMARY | 2024-04-29 01:57 | XMS_ITS | Encounter Summary ---
Author Organization [facility] [place] [address] Care Team Providers Care Ldr Nurse Name Role Phone Lyndon Cullen MD Primary Care Provider [phone] Encounter Details Date Type Department Care Team (Latest Contact Info) Description 10/09/2010 11:00 AM EST Initial consult Obst[place] [address] Memo Modi MD [facility] [address] OBSTETRICS [place] [address] Discharge Disposition: Home Social History Tobacco Use [...] on filedocumented in this encounter Care Teams Ldr Nurse Relationship Specialty Start Date End Date Lyndon Cullen MD [address] [place] [address] PCP - General 07/23/10 03/10/19 documented as of this encounter
--- OUTSIDE RECORDS SUMMARY | 2024-04-29 01:57 | XMS_ITS | Encounter Summary ---
Author Organization [facility] Address [address] [place] [address] Care Team Providers Care Regulatory Affairs Associate Name Role Phone Lyndon Cullen MD Primary Care Provider Unavailabl e Encounter Details Date Type Department Care Team (Latest Contact Info) Description 08/19/2018 17:33 EST - 08/19/2018 23:59 [facility] Hospital Encounter [address] [address] Unknown, ProviderMD Discharge Disposition: Home or Self Care Social History Tobacco Use Types Packs/Day Years [...] Sig Dispensed Refills Start Date End Date ALPRAZolam (XANAX) 2 mg tablet Take 2 mg by mouth daily. UNABLE TO FIND daily. Med Name: valACYclovir (VALTREX) 500 mg tablet Take 500 mg by mouth daily. documented as of this encounter Discharge Disposition Disposition Code Departure Means Destination Home or Self Mcfp documented in this encounter Plan of Treatment Not on file documented as of this encounter Visit Diagnoses Not on filedocumented in this encounter Care Teams Regulatory Affairs Associate Relationship Specialty Start Date End Date Lyndon Cullen MD PCP - General 05/15/09 02/06/20 documented as of this encounter
--- OUTSIDE RECORDS SUMMARY | 2024-04-29 01:57 | XMS_ITS | Encounter Summary ---
[place] [address] Care Team Providers Care Awning Frame Maker Name Role Phone Suki Davalos MD Primary Care Provider [phone] Encounter Details Date Type Department Care Team (Late st Contact Info) Description 09/12/2022 Transcribe [place] [phone] Racquel Dixon, IRRIGATOR GRAVITY FLOW [address] [place], [place] [address] Social History Tobacco Use Types Packs/Day Years [...] on filedocumented in this encounter Care Teams Awning Frame Maker Relationship Specialty Start Date End Date Suki Davalos MD [address] [place] [address] PCP - General Family Medicine 03/11/19 10/05/22 documented as of this encounter
--- OUTSIDE RECORDS SUMMARY | 2024-04-29 01:57 | XMS_ITS | Encounter Summary ---
Author Organization [facility] Address [address] [place] [address] Care Team Providers Care Second Crusher Name Role Phone Lyndon Cullen MD Primary Care Provider Unavailabl e Encounter Details Date Type Department Care Team (Late st Contact Info) Description 01/22/2011 Results Only [facility] Laboratory Services - [facility] ([facility]) [address], [place] [id number] Nilesh Yañez CNM [address] [place], [place] [id number] Social History Tobacco Use Types Packs/Day Years [...] Diagnosis Comments PAP TEST- RESULT ONLY Routine 01/22/2011 0:00 EDT documented in this encounter Results * PAP TEST- RESULT ONLY (01/22/2011 0:00 EDT) Pathology Report: CYTOPATHOLOGY REPORT ? Reports generated via electronic interface contain original data; ? however they are lacking the format of the original report. ? Caution should be taken when reading/interpreti ng unformatted reports. ? Name: ? SOLANGE ELLIOTT ? Accession #: ? [id number] ? : ? 1985 (Age: 25) ??F ?Collect Date: ? 01/22/2011 ? Location: ? [facility] ? Receive Date: ? 01/23/2011 ? Provider: ANEA LELONG CNM ? Copy to: ? Final Report ? SPECIMEN ADEQUACY ? Satisfactory for Evaluation ? - transformation zone component present ? GENERAL CATEGORIZATION ? Epithelial Cell Abnormality ? INTERPRETATION ? Squamous Cell Abnormality - Atypical squamous cells, undetermined ? significance (ASC-US). ? EDUCATIONAL NOTES/RECOMMENDATI ONS ? [facility] recommends following the 2006 Consensus Guidelines for the Management of Women with Abnormal Cervical Cancer Screening Tests (JLGTD, ? 2007;11(4):201-222 ). ??Consensus guidelines are available online at ? www.ASCCP.org. ? Last Menstural Period: 07/11/2010 ? Menstural/Pregnanc y Status: ? Previous Gynecologic Pathology: ASC-US: 05/03/09, 06/21/2010 ? HPV: + 05/03/2009, 06/21/2010 ? Treatment History: Colposcopy: 06/08 neg no bx ? Specimen/Source: ??Pap Test, Cervix/Endocervix, ThinPrep Imaging System with ? manual evaluation ? Document reviewed and electronically signed by: ? ABDELLINDAEM JOCELYN MD ? Report ??Date: 01/30/2011 15:32 ? HPV with Pap Test ? Date Ordered: ? 01/30/2011 ? Status: ?? Signed Out ?Date Complete: ? 02/04/2011 ? By: ??System Interface ? Date Reported: ? 02/04/2011 ? Interpretation ? RESULT: Positive for one or more of HPV types 16,18,31,33,35,39, 45, ? 51,52,56,58,59, or 68. These high/intermediate risk HPV ? types are associated with dysplasia and some cervical ? cancers. ? Comments ? Document reviewed and electronically signed by: ? System Interface ? Report date: 02/04/2011 ? By the signature above, the attending physician certifies that he/she has ? personally conducted a gross and/or microscopic examination of the described ? specimens and rendered or confirmed the above diagnosis. ? End of Report ? [facility] 01/22/2011 01/23/2011 Nilesh Yañez CNM PATHOLOGY ORDERABLES [facility] [address] [place] [address] documented in this encounter Visit Diagnoses Not on filedocumented in this encounter Care Teams Second Crusher Relationship Specialty Start Date End Date Lyndon Cullen MD PCP - General 05/15/09 02/06/20 documented as of this encounter
--- OUTSIDE RECORDS SUMMARY | 2024-04-29 01:57 | XMS_ITS | Encounter Summary ---
Author Organization [facility] Address [address] [place] [address] Care Team Providers Care Hosiery Looper Name Role Phone Lyndon Cullen MD Primary Care Provider Unavailabl e Encounter Details Date Type Department Care Team (Late st Contact Info) Description 11/19/2011 Results Only [facility] Laboratory Services - [facility] ([facility]) [address] [place], [place] [address] Leslie Jaffe MD [address] [facility] [place] [address] Social History Tobacco Use Types [...] Diagnosis Comments PAP TEST- RESULT ONLY Routine 11/19/2011 0:00 EDT documented in this encounter Results * PAP TEST- RESULT ONLY (11/19/2011 0:00 EDT) Pathology Report: CYTOPATHOLOGY REPORT Reports generated via electronic interface contain original data; however they are lacking the format of the original report. Caution should be taken when reading/interpreti ng unformatted reports. Name: ? SOLANGE ELLIOTT ? Accession #: ? [id number] : ? 1985 (Age: 26) ??F ?Collect Date: ? 11/19/2011 Location: ? [facility] ? Receive Date: ? 11/20/2011 Provider: ?LESLIE JAFFE MD Copy to: ? Specimen/Source: ?Pap Test, Cervix/Endocervix, ThinPrep Imaging System with manual evaluation Last Menstrual Period: ? 10/23/11 Previous Gynecologic Pathology: ? ASC-US HPV: + Treatment History: ? Colposcopy: 06/10 negative ? SPECIMEN ADEQUACY ? Satisfactory for Evaluation - transformation zone component present GENERAL CATEGORIZATION ? Negative for Intraepithelial Lesion or Malignancy ? Document reviewed and electronically signed by: ? Catrachita Grady, SCT(ASCP) ? Report Date: ??11/21/2011 16:18 End of Report [facility] 11/19/2011 11/20/2011 Leslie Jaffe MD PATHOLOGY ORDERABLES [facility] [address] [place] [address] documented in this encounter Visit Diagnoses Not on filedocumented in this encounter Care Teams Hosiery Looper Relationship Specialty Start Date End Date Lyndon Cullen MD PCP - General 05/15/09 02/06/20 documented as of this encounter
--- OUTSIDE RECORDS SUMMARY | 2024-04-29 01:57 | XMS_ITS | Encounter Summary ---
Author Organization [facility] Address [address] [place] [address] Care Team Providers Care Group President Name Role Phone Destiney Alexander DOPE SPRAYER Primary Care Provider [phone] Encounter Details Date Type Department Care Team (Late st Contact Info) Description 06/16/2022 Lab Requisition [facility] Pathology & Laboratory Medicine - [facility] [address] [place] [address] Anjali Bishop MD [facility] [place] [phone] Encounter for other general examination Social History Tobacco Use Types Packs/Day Years Used Date Smoking Tobacco: Former Cigarettes 0.5 7 0 04/21/2002 - 04/21/2009 Alcohol Use Standard Drinks/Week Comments Yes 0 (1 standard drink = 0.6 oz pur e alcohol) occasionally Interpersonal Safety Answer Date Record ed Physically Hurt Never 04/01/2020 Verbally Threaten Not on file 04/01/2020 Sex and Gender Information Value Date Recorded Sex Assigned at Not on file Gender Identity Not on file Sexual Orientation Not on file documented as of this encounter Plan of Treatment Not on file documented as of this encounter Procedures Procedure Name Priority Date/Time Associated Diagnosis Comments PAP TEST Today 06/13/2022 9:30 EDT Encounter for other general examination HPV DNA DETECTION WITH GENOTYPING, PCR Today 06/13/2022 9:30 EDT Encounter for other general examination documented in this encounter Results * HUMAN PAPILLOMAVIRUS (HPV) DETECTION-HIGH RISK TYPES (06/13/2022 9:30 EDT) HPV other High Risk types, PCR Negative Negative 06/23/2022 15:46 EDT [facility] Papanicolaou smear specimen (specimen) CERVIX UTERI STRUCTURE / Unknown 06/13/2022 9:30 EDT 06/20/2022 12:09 EDT Anjali Bishop MD MICROBIOLOGY - GENER AL ORDERABLES [facility] [address] [place] [address] * PAP TEST (06/13/2022 9:30 EDT) Specimens A. Cervix and/or Endocervix , ThinPrep Imaging System with Manual Evaluation 06/23/2022 15:46 [facility] Specimen Adequacy Satisfactory for Evaluation - transformation zone component present 06/23/2022 15:46 [facility] General Categorization Negative for intraepithelial lesion or malignancy 06/23/2022 15:46 [facility] Attestation . 06/23/2022 15:46 [facility] at 1546 Clinical History See below 06/23/20 15:46 T [facility] HPV The result for the Human Papillomavirus (HPV) Detection-High Risk Types is Negative. No E6 or E7 mRNA is detected from HPV types 16,18,31,33,35,39 ,45,51,52,56,58,5 9,66, and 68 by patient assistant mediated amplification.Theresa ting was performed on specimen [id number] and was resulted on 06/23/2022 1534 EDT by DENIS, LAB INSTRUMENT RESULTS IN 06/23/2022 15:46 T [facility] Performing Lab [facility] 06/23/2022 15:46 EDT [facility] Scanned Images 06/23/2022 15:46 EDT [facility] Papanicolaou smear specimen (specimen) CERVIX UTERI STRUCTURE / Unknown 06/13/2022 9:30 EDT 06/16/2022 14:11 EDT Anjali Bishop MD PATHOLOGY ORDERABLES [facility] [address] [place] [address] documented in this encounter Visit Diagnoses Diagnosis Encounter for other general examination documented in this encounter Care Teams Group President Relationship Specialty Start Date End Date Destiney Alexander FNP [address] [place] [phone] PCP - General 02/07/20 documented as of this encounter
--- OUTSIDE RECORDS SUMMARY | 2024-04-29 01:57 | XMS_ITS | Encounter Summary ---
Author Organization [facility] [address] [place] [address] Care Team Providers Care Senior Sales Associate Name Role Phone Lyndon Cullen MD Primary Care Provider Encounter Details Date Type Department Care Team (Late st Contact Info) Description 08/21/2015 4:00 PM EST Laboratory Appointment Lab [address] [place] [phone] Social History Tobacco Use Types Packs/Day Years [...] Procedure Name Priority Date/Time Associated Diagnosis Comments FIRST TRIMESTER SCREEN Routine 08/21/2015 4:17 PM EST documented in this encounter Results * First Trimester Screen (08/21/2015 4:17 PM EST) Pathologist [facility] First Trimester Profile ([facility]) Screen Negative [facility] Comment: Revised report 08/30/2015 Please see scanned report in Chart Review under the Non- Laboratory Heading. Please see scanned report in Chart Review under the Non- Laboratory Heading. Corrected from Screen Negative on 08/30/15 10:15 by Natalya Bustillos Test performed by [facility], [address], [place] [address] Blood specimen (specimen) Venous Draw / Unknown 08/21/2015 4:17 PM EST 08/22/2015 9:53 AM EST Narrative Resulting Agency Comment Spec In Lab Zamzam Santos MD LAB SEND OUT ORDERAB LES Performing Organization Address City/State/[facility] Co de Phone Number [facility] documented in this encounter Visit Diagnoses Not on filedocumented in this encounter Care Teams Senior Sales Associate Relationship Specialty Start Date End Date Lyndon Cullen MD [address] [place] [address] PCP - General 07/23/10 03/10/19 documented as of this encounter
--- OUTSIDE RECORDS SUMMARY | 2024-04-29 01:57 | XMS_ITS | Clinical Summary ---
Author Organization [facility] Address [address] [place] [address] Care Team Providers Care Agency Service Representative Name Role Phone Destiney Alexander RRT Primary Care Provider [phone] Allergies Active Allergy Reactions Criticality Noted Date Comments Prochlorperazine Edisylate Anxiety 3 Medications Medication Sig Dispensed Refills Start Date End Date Status ALPRAZolam (XANAX) 2 mg tablet Take 2 mg by mouth daily. Active UNABLE TO FIND daily. Med Name: Active valACYclovir (VALTREX) 500 mg tablet Take 500 mg by mouth daily. Active Active Problems Problem Noted Date Diagnosed Date Low back pain radiating to both legs 04/21/2013 Family History Medical History Relation Comments Diabetes Father Relation Status Comments Father Alive Mother Alive Social History Tobacco Use Types Packs/Day Years [...] on file Sexual Orientation Not on file Obstetrics History Last Filed Vital Signs Vital Sign Reading Time Taken Comments Blood Pressure - - Pulse - - Temperature - - Respiratory Rate - - Oxygen Saturation - - Inhaled Oxygen Concentration - - Weight 90.7 kg (200 lb) 04/21/2013 1056 EDT Height 168.9 cm (5' 6.5) 04/21/2013 1056 EDT Body Mass Index 31.8 04/21/2013 1056 EDT Plan of Treatment Health Maintenance Due Date Last Done Comments Hepatitis C Screen 1985 Hepatitis B Vaccine (1 of 3 - 19+ 3-dose series) 03/02 COVID-19 Vaccine (2022-24 season) 2023 Care Teams Agency Service Representative Relationship Specialty Start Date End Date Destiney Alexander FNP [address] [place] [address] [facility] - General 02/07/20
--- OUTSIDE RECORDS SUMMARY | 2024-04-29 01:57 | XMS_ITS | Encounter Summary ---
Author Organization [facility] [place] [address] Care Team Providers Care Link Trainer Maintenance Worker Name Role Phone Suki Davalos MD Primary Care Provider [phone] Encounter Details Date Type Department Care Team (Late st Contact Info) Description 07/27/2019 [place] [phone] Manuel Abel PA [facility] [place] [address] Social History Tobacco Use Types Packs/Day Years Used Date Smoking Tobacco: Former Cigarettes 0.5 5 Smokeless Tobacco: Former Quit: 06/19/2015 Comments:2009 quit Alcohol Use Standard Drinks/Week Comments Yes 0 (1 standard drink = 0.6 oz pure alcohol) h/o heavy drinking. Now social drinker. Nothing in . Comments Yes Sex and Gender Information Value Date Recorded Sex Assigned at Not on file Gender Identity Not on file Sexual Orientation Not on file documented as of this encounter Miscellaneous Notes * Telephone Encounter - Manuel Abel PA - 07/27/2019 5:04 PM EST Inquired of the patient regarding any symptoms of sore throat, and she mentioned that she did not have one currently, but when she does they always go right to a strep throat. Inquired if the patientwas still interested in having a tonsillectomy procedure, but she indicated that she felt we did not feel that it needed to happen. I did mention to her that tonsillectomy does often help with sore throat occurrences, but that there was no guarantee of that; and that it is a procedure with inherentrisk. I mentioned that I had discussed her case with one of the surgeons, and he felt that it wouldnot be unreasonable to perform the procedure; and that if she wanted to consider having the procedure in the future, that we would be able to accommodate her. The patient expressed understanding of these points and agreement with the plan, and all questions that were asked were answered to the patient's satisfaction. documented in this encounter Plan of Treatment Not on file documented as of this encounter Visit Diagnoses Not on filedocumented in this encounter Care Teams Link Trainer Maintenance Worker Relationship Specialty Start Date End Date Suki Davalos MD [address] [place] [address] PCP - General Family Medicine 03/11/19 10/05/22 documented as of this encounter
--- OUTSIDE RECORDS SUMMARY | 2024-04-29 01:57 | XMS_ITS | Encounter Summary ---
[place] [address] Care Team Providers Care Real Estate Associate Attorney Name Role Phone Lyndon Cullen MD Primary Care Provider [phone] Encounter Details Date Type Department Care Team (Late st Contact Info) Description 10/09/2010 10:00 AM EST Procedure visit [place] [address] Social History Tobacco Use Types Packs/Day Years Used Date Smoking Tobacco: Never Assessed Sex and Gender Information Value Date Recorded Sex Assigned at Not on file Gender Identity Not on file Sexual Orientation Not on file documented as of this encounter Plan of Treatment Not on file documented as of this encounter Visit Diagnoses Not on filedocumented in this encounter Care Teams Real Estate Associate Attorney Relationship Specialty Start Date End Date Lyndon Cullen MD [address] [place] [address] PCP - General 07/23/10 03/10/19 documented as of this encounter
--- OUTSIDE RECORDS SUMMARY | 2024-04-29 01:57 | XMS_ITS | Encounter Summary ---
Author Organization [facility] Address [address] [place] [address] Care Team Providers Care Pulley Man Name Role Phone Destiney Alexander ALISSA Primary Care Provider [phone] Encounter Details Date Type Department Care Team (Late st Contact Info) Description 02/07/2020 Lab Requisition [facility] Pathology & Laboratory Medicine - [address] [address] Daniela Patino MD [address] [place] [phone] Encounter for other general examination Social History [...] Procedure Name Priority Date/Time Associated Diagnosis Comments SURGICAL PATHOLOGY Today 02/07/2020 8: 29 EDT Encounter for other general examination documented in this encounter Results * SURGICAL PATHOLOGY (02/07/2020 8:29 EDT) Final Diagnosis A. GALLBLADDER, CHOLECYSTECTOMY: - Mild chronic cholecystitis with papillary cholesterolosis. 02/13/2020 8:[address] [facility] at 0850 Attestation By the signature below, the attending physician certifies that they have 1) personally conducted a gross and/or microscopic examination of the described specimen(s), and/or personally interpreted the results of laboratory testing of the described specimen(s), and 2) personally rendered or confirmed the above diagnosis. 02/13/2020 8:[address] [facility] at 0850 Clinical History Cholelithiasis 02/13/2020 8:50 [facility] Gross Description A. Received in formalin labelled with proper patient identification (initials T, K) and gallbladder & contents is an intact gallbladder with an attached segment of cystic duct (8.1 x 2.4 x 2.1 cm). A cystic duct lymph node is not present. The serosa is smooth, purple-dean and hyperemic. The mucosa is green with yellow trabeculations and the wall is 0.2 cm in thickness. The cystic duct lumen is patent and is 0.8 cm in diameter. The cystic duct margin is inked blue. There is a small amount of yellow sludge within the gallbladder, however no choleliths are present. Two employee representative sections and the en face cystic duct margin are submitted in A1. Adina Dot 02/08/2020 8:50 02/13/2020 8:[address] [facility] Scanned Images 02/13/2020 8:[address] [facility] Tissue ENTIRE GALLBLADDER / Unknown 02/07/2020 8:29 EDT 02/07/2020 23:12 EDT Daniela Patino MD PATHOLOGY ORDERABLES [facility] [address] [place] [address] documented in this encounter Visit Diagnoses Diagnosis Encounter for other general examination documented in this encounter Care Teams Pulley Man Relationship Specialty Start Date End Date Destiney Alexander FNP [address] [place] [phone] PCP - General 02/07/20 documented as of this encounter
--- OUTSIDE RECORDS SUMMARY | 2024-04-29 01:57 | XMS_ITS | Encounter Summary ---
Author Organization [facility] Address [address] [place] [address] Care Team Providers Care Aviation Safety Inspector Name Role Phone Thierno Cullen MD Primary Care Provider Unavailabl e Encounter Details Date Type Department Care Team (Late st Contact Info) Description 05/23/2011 Results Only [facility] Laboratory Services - [facility] ([facility]) [address] [place], [place] [phone] Juan Manuel [place], [place] [phone] Social History Tobacco Use Types Packs/Day Years [...] Diagnosis Comments PAP TEST- RESULT ONLY Routine 05/23/2011 0:00 EDT documented in this encounter Results * PAP TEST- RESULT ONLY (05/23/2011 0:00 EDT) Pathology Report: CYTOPATHOLOGY REPORT Reports generated via electronic interface contain original data; however they are lacking the format of the original report. Caution should be taken when reading/interpreti ng unformatted reports. Name: ? EARLSOLANGE FRANK Selwyn ? Accession #: ? [id number] ? : ? 1985 (Age: 26) ??F ?Collect Date: ? 05/23/2011 ? Location: ? [facility] ? Receive Date: ? 05/26/2011 ? Provider: JUAN MANUEL CARREON CNM Copy to: THIERNO CULLEN MD ? Final Report SPECIMEN ADEQUACY ? Satisfactory for Evaluation - transformation zone component present GENERAL CATEGORIZATION ? Negative for Intraepithelial Lesion or Malignancy INTERPRETATION ? Reactive cellular changes associated with inflammation present (includes repair). Last Menstural Period: 07/11/2010 Menstural/Pregnanc y Status: ??Post Previous Gynecologic Pathology: ASC-US: 05/09, 06/09, 01/22/2011 HPV: + 05/09, 06/09, 01/22/2011 Treatment History: Colposcopy: Neg, no bx Specimen/Source: ??Pap Test, Cervix/Endocervix, ThinPrep Imaging System with manual evaluation Document reviewed and electronically signed by: ? RICHARD HELTON MD ? Report ??Date: 06/02/2011 12:08 HPV with Pap Test ? Date Ordered: ? 06/04/2011 ? Status: ?? Signed Out ?Date Complete: ? 06/09/2011 ? By: ??System Interface ? Date Reported: ? 06/09/2011 ? Interpretation RESULT: Positive for one or more of HPV types 16,18,31,33,35,39, 45, 51,52,56,58,59, or 68. These high/intermediate risk HPV types are associated with dysplasia and some cervical cancers. Comments Document reviewed and electronically signed by: ? System Interface ? Report date: 06/09/2011 By the signature above, the attending physician certifies that he/she has personally conducted a gross and/or microscopic examination of the described specimens and rendered or confirmed the above diagnosis. End of Report [facility] 05/23/2011 05/26/2011 Juan Manuel Carreon CNM PATHOLOGY ORDERABLES [facility] [address] [place] [address] documented in this encounter Visit Diagnoses Not on filedocumented in this encounter Care Teams Aviation Safety Inspector Relationship Specialty Start Date End Date Thierno Cullen MD PCP - General 05/15/09 02/06/20 documented as of this encounter
--- OUTSIDE RECORDS SUMMARY | 2024-04-29 01:57 | XMS_ITS | Encounter Summary ---
Author Organization [facility] Address [address] [place] [address] Care Team Providers Care Exceptional Needs Teacher Name Role Phone Lyndon Cullen MD Primary Care Provider Unavailabl e Reason for Referral * Consult, Test and Treat (Routine/Next Available) - Closed Specialty Diagnoses / Procedures Referred By Contac t Referred To Contact Diagnoses Low back pain radiating to both legs Godwin Keenan PA-C [address] [place] [phone] Referral ID Status Reason Start Date Expiration Date V isits Requested Visits Authorized [id number] Closed Specialty Services Required 04/21/2013 1 1 Question Answer Reason for Request: low back pain Comments CHIRO twice/week for 8 weeks Godwin Keenan PA-C * Radiology Services (Routine/Next Available) - Closed Specialty Diagnoses / Procedures Referred By Contac t Referred To Contact Diagnoses Low back pain radiating to both legs Procedures L SPINE 4 OR MORE VIEWS Godwin Keenan PA-C [address] [place] [address] Referral ID Status Reason Start Date Expiration Date Visits Re quested Visits Authorized [id number] Closed 04/21/2013 1 1 Reason for Visit * Reason Comments Back Pain low back, radiating into upper back and legs bilaterally Encounter Details Date Type Department Care Team (Late st Contact Info) Description 04/21/2013 11:00 EDT Office Visit [facility] - [facility] [address] [place], [place] [id number] Godwin Keenan PA-C [address] [facility] [place] [address] Low back pain radiating to both legs (Primary Dx) Discharge Disposition: Auto Discharge Social History Tobacco Use Types Packs/Day Years [...] Body Mass Index 31.8 04/21/2013 1056 EDT documented in this encounter Discharge Disposition Disposition Code Departure Means Destination Auto Discharge documented in this encounter Progress Notes * Godwin Keenan PA - 04/21/2013 1117 EDT Solange Nichols is being seen as a consultation from Dr. Cullen. Chief Complaint Patient presents with ??? Back Pain low back, radiating into upper back and legs bilaterally The encounter diagnosis was Low back pain radiating to both legs. HPI Ms. Nichols is a 28 y.o. pleasant female who presents to the clinic today with 80% LBP and 20% B/LLE pain affecting the posterior aspects of her thighs, occasionally, the posterior aspects of her lower legs with numbing and tingling in the medial surfaces of her foot including the ankle. The patient reports 6- year h/o intermittent LBP without radiation the LE initially that started soon after the of her first child; LE symptoms are new and have been getting progressively worse over the last 8 months. She reports pain that is present every day that fluctuates between 3/10 at its best and 10/10 at its worst. She has tried PT and facet injections without success. She has not tried CHIRO. Laying down on her sides with a pillow between her knees and application of heat alleviate her symptoms. Standing and extending her back aggravate her symptoms. Today, she rates her pain as 6/10. HPI Patient Active Problem List Diagnoses ??? Low back pain radiating to both legs No past medical history on file. No past surgical history on file. History Substance Use Topics ??? Smoking status: Former Smoker -- 0.5 packs/day for 7 years Quit date: 04/21/2009 ??? Smokeless tobacco: Not on file ??? Alcohol Use: Yes occasionally Family History Problem Relation Age of Onset ??? Diabetes Father Allergies Allergen Reactions ??? Compazine (Prochlorperazine Edisylate) Anxiety Review of Systems Constitutional: Positive for activity change. Negative for unexpected weight change. HENT: Negative for neck pain. Eyes: Negative for visual disturbance. Respiratory: Negative for chest tightness. Cardiovascular: Negative for chest pain. Gastrointestinal: Negative for constipation. Genitourinary: Negative for difficulty urinating. Musculoskeletal: Positive for back pain. Skin: Negative for pallor. Neurological: Positive for numbness. Psychiatric/Behavioral: Negative for behavioral problems and agitation. Physical Exam Constitutional: She is oriented to person, place, and time. She appears well- developed and well-nourished. HENT: Head: Normocephalic and atraumatic. Eyes: EOM are normal. Neck: Neck supple. Cardiovascular: Normal rate. Pulmonary/Chest: Effort normal. Neurological: She is alert and oriented to person, place, and time. Skin: Skin is warm and dry. No rash noted. Psychiatric: She has a normal mood and affect. Her behavior is normal. Back Exam Comments: GAIT: Normal. HEEL & TOE WALKING: NEG. LESIONS, RASHES OR HAIR ROSALIA: NEG. FROM: TENDERNESS ON PALPATION: POS. STRENGTH: 5/5 REFLEXES: 2/2. BABINSKI: Down. CLONUS: NEG. DP: 2/2. SENSATION: Intact. SLR RIGHT: NEG. LEFT: NEG. HIP ROM: Full. AUGUSTA'S: NEG. Neurologic Exam Mental Status Oriented to person, place, and time. Cranial Nerves CN III, IV, Extraocular motions are normal. Today, 04/21/2013, I ordered plain radiographs and I independently reviewed the following: Plain radiographs (AP/Lat/Flex/Ex): 1. Five (5) non-rib bearing lumbar vertebrae 2. Mild facet arthropathy of the lower lumbar spine 3. No fractures or pars defects noted MRI from prior work up in August 2012: A small left sided L5-S1 disc herniation is noted without evidence of significant spinal canal stenosis. Foramina are patent. Assessment 28 y.o. female with LBP most likely musculoskeletal and B/L LE pain along the S1 dermatomal distribution not concordant with MRI. MRI is unremarkable except for some small, left sided disc protrusionat L5-S1 level. I recommended CHIRO. She will return PRN. Other Orders Placed This Visit Procedures ??? L SPINE 4 OR MORE VIEWS ??? Ambulatory Consult Physical Therapy Plan: 1. Continue activity as tolerated 2. Recommend CHIRO 3. Return to clinic PRN CC: Dr. Cullen documented in this encounter Miscellaneous Notes * Scanned Note-Null - PRINTER MACHINE, SCAN 2 - 04/28/2013 0835 EDT documented in this encounter Plan of Treatment Scheduled Referrals Name Type Priority Associated Diagnoses Orde r Schedule AMB CONSULT PHYSICAL THERAPY Outpatient Referral Routine Low back pain radiating to both legs Ordered: 04/21/2013 documented as of this encounter Procedures Procedure Name Priority Date/Time Associated Diagnosis Comments L SPINE 4 OR MORE VIEWS Routine 04/21/2013 11:46 EDT Low back pain radiating to both legs documented in this encounter Results * L SPINE 4 OR MORE VIEWS (04/21/2013 11:46 EDT) Anatomical Region Laterality Modality Other 04/21/2013 11:4 6 EDT 04/21/2013 12:53 EDT Narrative 04/21/2013 12:53 EDT L SPINE 4 OR MORE VIEWS ??04/21/2013 11:46 AM Clinical History/Comments: 724.5-Xpsobua-GDB-9-CM; low back pain comparison: None. Findings: I do not see a significant lumbar scoliosis. Alignment is normal on the neutral upright lateral view. There is no evidence of dynamic instability. I do not see significant disc height loss. There does appear to be some mild height loss at L1-L2 and L2-L3. Vertebral body heights are preserved. There are 5 nonrib-bearing lumbar vertebral bodies. There is early osteoarthritic changes involving the L5-S1 facet joints. The SI joints are symmetric and the sacral ala are intact. Procedure Note 04/21/2013 L SPINE 4 OR MORE VIEWS 04/21/2013 11:46 AM Clinical History/Comments: 724.1-Ouypuvm-USA-9-CM; low back pain comparison: None. Findings: I do not see a significant lumbar scoliosis. Alignment is normal on the neutral upright lateral view. There is no evidence of dynamic instability. I do not see significant disc height loss. There does appear to be some mild height loss at L1-L2 and L2-L3. Vertebral body heights are preserved. There are 5 nonrib-bearing lumbar vertebral bodies. There is early osteoarthritic changes involving the L5-S1 facet joints. The SI joints are symmetric and the sacral ala are intact. Godwin Keenan PA-C [facility] ORDERABLES documented in this encounter Visit Diagnoses Diagnosis Low back pain radiating to both legs- Primary Lumbago documented in this encounter Historical Medications * This list may reflect changes made after this encounter. Medication Sig Dispensed Refills Start Date End Date valACYclovir (VALTREX) 500 mg tablet Take 500 mg by mouth daily. UNABLE TO FIND daily. Med Name: ALPRAZolam (XANAX) 2 mg tablet Take 2 mg by mouth daily. added in this encounter Care Teams Exceptional Needs Teacher Relationship Specialty Start Date End Date Lyndon Cullen MD PCP - General 05/15/09 02/06/20 documented as of this encounter
--- OUTSIDE RECORDS SUMMARY | 2024-04-29 01:57 | XMS_ITS | Encounter Summary ---
Author Organization [facility] Address [address] [place] [address] Care Team Providers Care Bar Tacker Sewing Machine Name Role Phone Subhash, Lyndon MELGAR Primary Care Provider Destiney Flores Primary Care Provider [phone] Encounter Details Date Type Department Care Team (Late st Contact Info) Description 02/03/2020 Lab Requisition [facility] Pathology & Laboratory Medicine - [facility] [address] [place], [place] [address] Outr Resulting Lab, Provider Social History Tobacco Use Types Packs/Day Years [...] Procedure Name Priority Date/Time Associated Diagnosis Comments ZZCOVID-19 TEST [facility] PCR Today 02/03/2020 10:27 EDT COVID-19 TESTING Routine 02/03/2020 10:2 7 EDT documented in this encounter Results * COVID-19 TEST [facility] PCR (02/03/2020 10:27 EDT) Swab ENTIRE NASOPHARYNX / Unknown 02/03/2020 10:27 EDT 02/03/2020 15:24 EDT Provider Outr Resulting Lab MICROBIOLOGY - GENERAL ORDERABLES Performing Organization Address [facility] Co de Phone Number [facility] [address] [place] [address] * COVID-19 TESTING (02/03/2020 10:27 EDT) COVID-19 rt-PCR Result Negative Negative 02/04/2020 14:10 EDT [facility] Comment: This test has not been FDA cleared or approved. This test has been authorized by FDA under an EUA for use by authorized laboratories. This test has been authorized only for detection of nucleic acid from 2019-nCoV, not for any other viruses or pathogens. This test is only authorized for the duration of the declaration that circumstances exist justifying the authorization of emergency use of in vitro diagnostic tests for detection and/or diagnosis of 2019-nCoV under section 564(b)(1) of Act, 21 U.S.C ?? 360bbb-3(b) (1), unless the authorization is terminated or revoked sooner. Negative results do not preclude 2019-nCoV infection and should not be used as the sole basis for treatment or other patient management decisions. Negative results must be combined with clinical observations, patient history, and epidemiological information. Performed on the Jobmet[employer] Fusion instrument Performing Lab [place] [facility] Lab 02/04/2020 14:10 EDT [facility] Swab ENTIRE NASOPHARYNX / Unknown 02/03/2020 10:27 EDT 02/03/2020 15:24 EDT Provider Outr Resulting Lab MICROBIOLOGY - GENERAL ORDERABLES Performing Organization Address City/[facility]/ZIP Co de Phone Number [facility] [address] [place] [address] documented in this encounter Visit Diagnoses Not on filedocumented in this encounter Care Teams Bar Tacker Sewing Machine Relationship Specialty Start Date End Date Lyndon Cullen MD PCP - General 05/15/09 02/06/20 Destiney Alexander FNP [address] [place] [phone] PCP - General 02/07/20 documented as of this encounter
--- OUTSIDE RECORDS SUMMARY | 2024-04-29 01:57 | XMS_ITS | Encounter Summary ---
Author Organization [facility] [place] [address] Care Team Providers Care Bass String Winder Name Role Phone Destiney Alexander APRN Primary Care Provider [phone] Encounter Details Date Type Department Care Team (Late st Contact Info) Description 08/07/2022 Telephone [place] [phone] Darlene Szymanski Social History Tobacco Use Types Packs/Day Years [...] encounter Miscellaneous Notes * Telephone Encounter - Nadine Sanchez - 10/06/2022 3:14 PM EST New surgery date is 11/07 Thank you * Telephone Encounter - Darlene Szymanski - 08/07/2022 9:32 AM EST Shanita, Patient is scheduled to have surgery on 10/10/2022 and the packet has been mailed to the verified address on file. Follow up appointment is as follows: No follow-up indicated Thank you!! documented in this encounter Plan of Treatment Not on file documented as of this encounter Visit Diagnoses Not on filedocumented in this encounter Care Teams Bass String Winder Relationship Specialty Start Date End Date Destiney Alexander APRN [address] [place] [address] PCP - General Family Medicine 10/06/22 documented as of this encounter
--- OUTSIDE RECORDS SUMMARY | 2024-04-29 01:57 | XMS_ITS | Encounter Summary ---
Author Organization [facility] [place] [address] Care Team Providers Care Bag Machine Helper Name Role Phone Lyndon Cullen MD Primary Care Provider [phone] Encounter Details Date Type Department Care Team (Late st Contact Info) Description 10/09/2010 9:00 AM EST Routine Obstetrics [place] [address] Ean Lynn, [facility] DR OBSTETRICS [place] [address] Social History Tobacco Use Types Packs/Day Years Used Date Smoking Tobacco: Never Assessed Sex and Gender Information Value Date Recorded Sex Assigned at Not on file Gender Identity Not on file Sexual Orientation Not on file documented as of this encounter Plan of Treatment Not on file documented as of this encounter Visit Diagnoses Not on filedocumented in this encounter Care Teams Bag Machine Helper Relationship Specialty Start Date End Date Lyndon Cullen MD [address] [place] [address] PCP - General 07/23/10 03/10/19 documented as of this encounter
--- OUTSIDE RECORDS SUMMARY | 2024-04-29 01:57 | XMS_ITS | Encounter Summary ---
Author Organization [facility] [place] [address] Care Team Providers Care Chief Engineer'S Helper Name Role Phone Suki Davalos MD Primary Care Provider [phone] Encounter Details Date Type Department Care Team (Late st Contact Info) Description 04/08/2019 Telephone [place] [phone] Manuel Abel PA [facility] [place] [address] Social History Tobacco Use Types Packs/Day Years [...] Telephone Encounter - Manuel Abel PA - 04/08/2019 4:06 PM EDT Discussed with the patient that I had reviewed her case, including her direct laryngoscopy exam, with Dr. Amaya, and he felt that it would be prudent to have the patient return to reassess her left-side laryngeal lesion for interval change. Further discussed her performing salt-water gargles 2 times per day until the time of her return visit to see if she can avoid having further throat infections during that time. Discussed that the idea of tonsillectomy could be revisited again at that time. The patient expressed understanding of these points and agreement with the plan, and all questions that were asked were answered to the patient's satisfaction. documented in this encounter Plan of Treatment Not on file documented as of this encounter Visit Diagnoses Not on filedocumented in this encounter Care Teams Chief Engineer'S Helper Relationship Specialty Start Date End Date Suki Davalos MD [address] [place] [address] PCP - General Family Medicine 03/11/19 10/05/22 documented as of this encounter
--- OUTSIDE RECORDS SUMMARY | 2024-04-29 01:57 | XMS_ITS | Encounter Summary ---
Author Organization [facility] Address [address] [place] [address] Care Team Providers Care Transit Driver Name Role Phone Lyndon Cullen MD Primary Care Provider Unavailabl e Encounter Details Date Type Department Care Team (Late st Contact Info) Description 12/11/2017 Results Only [facility] [phone] [address]iles[address] Joya [address] [place], [place] [address] Social History Tobacco Use Types Packs/Day Years [...] Diagnosis Comments PAP TEST- RESULT ONLY Routine 12/11/2017 0:00 EDT documented in this encounter Results * PAP TEST- RESULT ONLY (12/11/2017 0:00 EDT) Pathology Report: CYTOPATHOLOGY REPORT Reports generated via electronic interface contain original data; however they are lacking the format of the original report. Caution should be taken when reading/interpreti ng unformatted reports. Name: ? SOLANGE ELLIOTT ? Accession #: ? [id number] ? : ? 1985 (Age: 32) ??F ?Collect Date: ? 12/11/2017 ? Location: ? [facility] ? Receive Date: ? 12/14/2017 ? Provider: NILESH JOYA CN Copy to: GIANLUCA YOUNG MD ? Final Report SPECIMEN ADEQUACY ? Satisfactory for Evaluation - transformation zone component present GENERAL CATEGORIZATION ? Epithelial Cell Abnormality INTERPRETATION ? Squamous Cell Abnormality - Atypical squamous cells, undetermined significance (ASC-US). EDUCATIONAL NOTES/RECOMMENDATI ONS ? [facility] recommends following ASCCP's 2012 Updated Consensus Guidelines for the Management of Abnormal Cervical Cancer Screening Tests and Cancer Precursors (JLGTD, 2013; 17(5):S1-S27). ??Consensus guidelines are available online at www.asccp.org. Last Menstrual Period: 09/08/17 Menstrual/Pregnanc y Status: ?? Specimen/Source: ??Pap Test, Cervix, ThinPrep Imaging System with manual evaluation Document reviewed and electronically signed by: ? LAURA BAZZI MD ? Report ??Date: 12/22/2017 11:52 HPV with Pap Test ? Date Ordered: ? 12/22/2017 ? Status: ?? Signed Out ?Date Complete: ? 12/23/2017 ? By: ??System Interface ? Date Reported: ? 12/23/2017 ? Interpretation RESULT: POSITIVE FOR HIGH OR INTERMEDIATE RISK HPV. E6 OR E7 mRNA from one or more types of HPV types 16,18,31, 33,35,39,45,51,52, 56,58,59,66, and 68 is detected by shoe salesman mediated amplification. High and intermediate risk HPV types are associated with most squamous intraepithelial lesions and cervical cancers. Comments Document reviewed and electronically signed by: ? System Interface ? Report date: 12/23/2017 By the signature above, the attending physician certifies that he/she has personally conducted a gross and/or microscopic examination of the described specimens and rendered or confirmed the above diagnosis. End of Report [facility] 12/11/2017 12/14/2017 Nilesh Joya [facility] PATHOLOGY ORDERABLES Performing Organization Address City/State/[facility] Co de Phone Number [facility] [address] [place] [address] documented in this encounter Visit Diagnoses Not on filedocumented in this encounter Care Teams Transit Driver Relationship Specialty Start Date End Date Lyndon Cullen MD PCP - General 05/15/09 02/06/20 documented as of this encounter
--- OUTSIDE RECORDS SUMMARY | 2024-04-29 01:57 | XMS_ITS | Encounter Summary ---
Author Organization [facility] [place] [address] Care Team Providers Care Review Scheduling Coordinator Name Role Phone Lyndon Cullen MD Primary Care Provider [phone] Encounter Details Date Type Department Care Team (Latest Contact Info) Description 08/21/2015 1:45 PM EST - 08/21/2015 3:27 PM EST Hospital En[place] [address] Zamzam Santos MD [facility] [place] [address] Supervision of high risk in first trimester Discharge Disposition: Home Social History Tobacco Use [...] Priority Date/Time Associated Diagnosis Comments US OB VIABILITY TRANSABDOMINAL Routine 08/21/2015 2:28 PM EST Supervision of high risk in first trimester documented in this encounter Results * US OBs Viability (08/21/2015 2:28 PM EST) Anatomical Region Laterality Modality Pelvis, Abdomen Ultrasound 08/21/2015 2:00 PM EST Impressions 08/21/2015 4:09 PM EST Impression 1st Trimester Summary Addendum: ??Additional history provided. Single living intrauterine with a gestational age of ??based on clinical LINCOLN. The crown rump length corresponds to a gestational age of 12w 6d. I ??viewed the images and agree with the above interpretation. ? Zamzam Santos MD Electronically Signed Corrected Final Report ??11/28/2015 11:08 am Narrative 08/21/2015 4:09 PM EST OBSTETRICS REPORT ?(Corrected Final 11/28/2015 11:08 ? am) Patient Info ID #: ? [id number] ?: ??[birth year] (30 yrs)(F) Name: ? SOLANGE ELLIOTT ?Visit Date: 08/21/2015 02:00 pm Performed By Performed By: ? Jessica Mcdonough RDMS Attending: ?Tom MELGAR, Zamzam Mcdaniels Service(s) Provided ??UOBVIB - ??Viability - Transabdominal - [id number] ?[id number] Indications ??viability; E - Coordinates with gestational age ??or more than one week. ??Recurrent ?? loss OB History Height: ? 5'6 ?Weight: ?? 224 ?BMI: ??36.15 Evaluation Num Of Fetuses: ? 1 Preg. Location: ? Uterus Gest. Sac: ?Visualized Yolk Sac: ? Visualized Pole: ? Visualized Heart ? 147 Rate(bpm): Cardiac Activity: ?? Observed, normal rhythm Presentation: ? Variable Placenta: ? Too early to evaluate Amniotic Fluid HEDY FV: ?Too early to evaluate -------- Biometry -------- CRL: ?64.9 ??mm ? G.Age: ?? 12w 6d ?LINCOLN: ?? 02/27/16 Gestational Age Clinical LINCOLN: ??12w 5d ?LINCOLN: ?? 02/28/16 Best: ?12w 5d ?? Det. By: ??Clinical LINCOLN ? LINCOLN: ?? 02/28/16 Cervix Uterus Adnexa Left Ovary Size(cm) ? 1.94 ?? x ?? 1.37 ?? x ??1.31 ?Vol(ml): 1.8 Visualized Right Ovary Size(cm) ? 2.59 ?? x ?? 2.09 ?? x ??1.66 ?Vol(ml): 4.7 Visualized Cul De Sac: ?? No fluid seen Procedure Note Zamzam Santos MD - 11/28/2015 OBSTETRICS REPORT (Corrected Final 11/28/2015 11:08 am) Patient Info ID #: [id number] : [birth year] (30 yrs)(F) Name: SOLANGE ELLIOTT Visit Date: 08/21/2015 02:00 pm Performed By Performed By: Jessica Mcdonough RDMS Attending: Zamzam Santos MD Service(s) Provided UOBVIB - Viability - Transabdominal - [id number] Indications viability; E - Coordinates with gestational age or more than one week. Recurrent loss OB History Height: 5'6 Weight: 224 BMI: 36.15 Evaluation Num Of Fetuses: 1 Preg. Location: Uterus Gest. Sac: Visualized Yolk Sac: Visualized Pole: Visualized Heart 147 Rate(bpm): Cardiac Activity: Observed, normal rhythm Presentation: Variable Placenta: Too early to evaluate Amniotic Fluid HEDY FV: Too early to evaluate -------- Biometry -------- CRL: 64.9 mm G.Age: 12w 6d LINCOLN: 02/27/16 Gestational Age Clinical LINCOLN: 12w 5d LINCOLN: 02/28/16 Best: 12w 5d Det. By: Clinical LINCOLN LINCOLN: 02/28/16 Cervix Uterus Adnexa Left Ovary Size(cm) 1.94 x 1.37 x 1.31 Vol(ml): 1.8 Visualized Right Ovary Size(cm) 2.59 x 2.09 x 1.66 Vol(ml): 4.7 Visualized Cul De Sac: No fluid seen IMPRESSION Impression 1st Trimester Summary Addendum: Additional history provided. Single living intrauterine with a gestational age of based on clinical LINCOLN. The crown rump length corresponds to a gestational age of 12w 6d. I viewed the images and agree with the above interpretation. Zamzam Santos MD Electronically Signed Corrected Final Report 11/28/2015 11:08 am Zamzam Santos MD IMG US OB ORDERABLES documented in this encounter Visit Diagnoses Diagnosis Supervision of high risk in first trimester Unspecified high-risk documented in this encounter Care Teams Review Scheduling Coordinator Relationship Specialty Start Date End Date Lyndon Cullen MD [address] [place] [address] PCP - General 07/23/10 03/10/19 documented as of this encounter
--- OUTSIDE RECORDS SUMMARY | 2024-04-29 01:57 | XMS_ITS | Encounter Summary ---
Author Organization [facility] Address [address] [place] [address] Care Team Providers Care Operating Room Surgical Technician Name Role Phone Lyndon Cullen MD Primary Care Provider Destiney Flores Primary Care Provider [phone] Encounter Details Date Type Department Care Team (Late st Contact Info) Description 07/12/2019 Lab Requisition [facility] Pathology & Laboratory Medicine - [facility] [address] [place] [address] Anjali Bishop MD [address] [place] [address],[address] [id number] Encounter for other general examination Social History [...] Date/Time Associated Diagnosis Comments PAP TEST Today 07/11/2019 10:00 EST Encounter for other general examination HPV DNA DETECTION WITH GENOTYPING, PCR Today 07/11/2019 10:00 EST Encounter for other general examination documented in this encounter Results * HUMAN PAPILLOMAVIRUS (HPV) DETECTION-HIGH RISK TYPES (07/11/2019 10:00 EST) HPV other High Risk types, PCR Negative Negative 07/18/2019 15:25 [facility] Comment:No E6 or E7 mRNA is detected from HPV types 16,18,31,33,35,39,45,51,52,56,58,59,66, and 68 by milk receiver mediated amplification. Papanicolaou smear specimen (specimen) CERVIX UTERI STRUCTURE / Unknown 07/11/2019 10:00 EST 07/14/2019 12:57 EST Anjali Bishop MD MICROBIOLOGY - GENER AL ORDERABLES [facility] [address] [place] [address] * PAP TEST (07/11/2019 10:00 EST) Specimens A. Cervix and/or Endocervix, , ThinPrep Imaging System with Manual Evaluation 07/18/2019 15:25 [facility] Specimen Adequacy Satisfactory for Evaluation - transformation zone component present 07/18/2019 15:25 [facility] General Categorization Negative for intraepithelial lesion or malignancy 07/18/2019 15:25 [facility] Attestation . 07/18/2019 15:25 [facility] at 1525 Clinical History NONE 07/18/20 19 15:25 [facility] HPV The result for the Human Papillomavirus (HPV) Detection-High Risk Types is Negative. No E6 or E7 mRNA is detected from HPV types 16,18,31,33,35,39 ,45,51,52,56,58,5 9,66, and 68 by milk receiver mediated amplification.Theresa ting was performed on specimen [id number] and was resulted on 07/18/2019 1524 EST by DENIS, LAB INSTRUMENT RESULTS IN 07/18/2019 15:25 [facility] Scanned Images 07/18/2019 15:25 [facility] Papanicolaou smear specimen (specimen) CERVIX UTERI STRUCTURE / Unknown 07/11/2019 10:00 EST 07/12/2019 12:28 EST Anjali Bishop MD PATHOLOGY ORDERABLES [facility] [address] [place] [address] documented in this encounter Visit Diagnoses Diagnosis Encounter for other general examination documented in this encounter Care Teams Operating Room Surgical Technician Relationship Specialty Start Date End Date Lyndon Cullen MD PCP - General 05/15/09 02/06/20 Destiney Alexander FNP [address] [facility] [address] [place] [id number] PCP - General 02/07/20 documented as of this encounter
--- OUTSIDE RECORDS SUMMARY | 2024-04-29 01:57 | XMS_ITS | Encounter Summary ---
Author Organization [facility] [place] [address] Care Team Providers Care Commercial Kitchen Service Technician Name Role Phone Lydnon Cullen MD Primary Care Provider [phone] Encounter Details Date Type Department Care Team (Latest Contact Info) Description 08/21/2015 3:28 PM EST - 08/21/2015 11:59 PM [facility] Hospital [place] [address] Zamzam Santos MD [facility]STETR[facility] [place] [address] screening encounter Discharge Disposition: Home Social History Tobacco Use [...] Priority Date/Time Associated Diagnosis Comments US OB NUCHAL TRANSLUCENCY Routine 08/21/2015 3:44 PM EST screening encounter documented in this encounter Results * US OB Nuchal [...] ? pm) Patient Info ID #: ? [id number] ?: ??[birth year] (30 yrs)(F) Name: ? SOLANGE ELLIOTT ?Visit Date: 08/21/2015 03:41 pm Performed By Performed By: ? Daisha Donato RDMS Attending: ?Tom MELGAR, Zamzam Mcdaniesl Referred By: ?ZAMZAM SANTOS MD Service(s) Provided ??UNT - Nuchal Translucency - First Trimester ? 18736 ??Screening - [id number] Indications ??genetic screening; A - within 6 [...] LINCOLN ? LINCOLN: ?? 02/28/16 Procedure Note Zamzam Santos MD - 11/26/2015 OBSTETRICS REPORT (Corrected Final 09/17/2015 03:23 pm) Patient Info ID #: [id number] : [birth year] (30 yrs)(F) Name: SOLANGE ELLIOTT Visit Date: 08/21/2015 03:41 pm Performed By Performed By: Daisha Donato RDMS Attending: Zamzam Santos MD Referred By: ZAMZAM SANTOS MD Service(s) Provided UNT - Nuchal Translucency - First Trimester 25296 Screening - [id number] Indications genetic screening; A - within 6 hours. Recurrent loss OB History Height: 5'6 Weight: 224 BMI: 36.15 Evaluation Num Of Fetuses: 1 Presentation: Variable Placenta: too early to evaluate -------- Biometry -------- CRL: 64.6 mm G.Age: 12w 6d LINCOLN: 02/27/16 NT: 1.7 mm Gestational Age Clinical LINCOLN: 12w 5d LINCOLN: 02/28/16 Best: 12w 5d Det. By: Clinical LINCOLN LINCOLN: 02/28/16 IMPRESSION Impression 1st Trimester NT Summary [...] Signed Corrected Final Report 09/17/2015 03:23 pm Zamzam Santos MD IMG OB ORDERABLES documented in this encounter Visit Diagnoses Diagnosis screening encounter Unspecified screening documented in this encounter Care Teams Commercial Kitchen Service Technician Relationship Specialty Start Date End Date Lyndon Cullen MD [address] [place] [address] PCP - General 07/23/10 03/10/19 documented as of this encounter
--- OUTSIDE RECORDS SUMMARY | 2024-04-29 01:57 | XMS_ITS | Encounter Summary ---
Author Organization [facility] Address [facility] [place] [address] Care Team Providers Care Smocking Machine Operator Name Role Phone Suki Davalos MD Primary Care Provider [phone] Encounter Details Date Type Department Care Team (Late st Contact Info) Description 07/21/2022 10:40 AM EST Office [place] [address] Tanner Vaughn MD [facility] [place] [address] Chronic tonsillitis Social History Tobacco Use Types Packs/Day Years [...] - Inhaled Oxygen Concentration - - Weight 98 kg (216 lb) 07/21/2022 10:33 AM EST Height 167.6 cm (5' 6) 07/21/2022 10:33 AM EST Body Mass Index 34.86 07/21/2022 10:33 AM EST documented in this encounter Progress Notes * Tanner Vaughn MD - 07/21/2022 10:40 AM EST [facility] Attending Note Patient was seen and examined with the above resident. I agree with the history, exam findings, andrecommendations. Summary Patient with history of recurrent tonsillitis with 2+ tonsils. Has been strep positive on occasion and does respond well to antibiotics. Meets criteria for tonsillectomy. Reviewed with patient and patient would like to proceed. I appreciate the opportunity to be involved in Ms. Nichols's care. TANNER VAUGHN MD 07/21/2022 * Susana Schaefer MD - 07/21/2022 10:40 AM EST [facility] FOLLOW UP NOTE Solange Nichols is a 37 y.o. female with H bipolar disorder who is followed for: Reccurent tonsillitis. Patient presented with recurrent sore throats on 03/30/19, having 5-6 over the last year, some of which have been strep positive. She elected to monitor clinically. New issues since last visit: Patient reports ~3/yr episodes of tonsillitis for past several years. Some strep positive. Respond to antibiotics. She does endorse snoring, but feels she gets a good night's rest. She takes Seroquelto sleep. Denies odynophagia when not having episode of tonsillitis. No history of asthma. No tobacco use, occasional alcohol 1-2d/week. Head and neck symptom survey >Symptom ?? >Comments Dysphagia n Odynophagia n Voice change or hoarseness n Breathing difficulties n Otalgia n Hemoptysis n Adenopathy n Weight loss n Xerstomia y Sometimes notes dry mouth in the evenings, not every day. Trismus n Numbness n Loose Dentition n Taste disturbance n ?? PROBLEM LIST Patient Active Problem List Diagnosis Code ??? Low back pain M54.50 PAST MEDICAL HISTORY Past Medical History: Diagnosis Date ??? Anxiety took Lexapro, Celexa, Xanax in the past. Stopped 02/2015. ??? Chronic back pain Physical therapy, steroid injections in the past. SOCIAL HISTORY Social History Tobacco Use ??? Smoking status: Former Packs/day: 0.50 Years: 5.00 Pack years: 2.50 Types: Cigarettes ??? Smokeless tobacco: Former Quit date: 06/19/2015 ??? Tobacco comments: 2009 quit Substance Use Topics ??? Alcohol use: Yes Alcohol/week: 0.0 standard drinks Comment: h/o heavy drinking. Now social drinker. Nothing in . MEDICATIONS Current Outpatient Medications on File Prior to Visit Medication Sig Dispense Refill ??? lamoTRIgine (LAMICTAL) 200 mg Tablet Take 200 mg by mouth daily. ??? buPROPion (WELLBUTRIN XL) 300 mg Tablet Extended Release 24 hr Take 300 mg by mouth every morning. ??? metoclopramide (REGLAN) 5 mg Tablet 0 No current facility-administered medications on file prior to visit. ALLERGIES Allergies Allergen Reactions ??? Prochlorperazine Unknown ROS 8 point Review of Systems was normal except for pertinent positives and negatives included in the History of Present Illness. PHYSICAL EXAMINATION Physical Examination: VITALS - unknown if currently . GENERAL - Well dressed and well nourished. - Breathing comfortably without stridor. - No acute distress. FACE - Full and symmetric facial movement. - No dysmorphic facial features. EYES - Periocular structures and conjunctiva healthy without lesions. - Pupils are equal, round, and reactive to light. - Extraocular movement is full and intact. - No evidence of nystagmus. EARS Left: - Auricle normal exam. - External auditory canal normal exam. - Tympanic membrane javier and translucent. Right: - Auricle normal exam. - External auditory canal normal exam. - Tympanic membrane javier and translucent. NOSE - Patent anteriorly with adequate airflow, healthy pink mucosa. - Septum is midline without significant deviation. - Inferior turbinates normal exam. MOUTH - Lips and gingiva pink, moist, without lesions. - Gums/dentition healthy. - Tongue and floor of mouth without lesions or masses. - Hard palate without lesions. PHARYNX - Soft palate without lesions. - Uvula is midline. - Oropharynx symmetric. -Tonsils 2+, endophytic, moderately cryptic NECK - Soft, supple, without significant lymphadenopathy. - Thyroid gland without masses or asymmetry. - Trachea midline without deviation. LUNGS - Clear to auscultation bilaterally without wheezes. HEART - Regular rate and rhythm without murmur. NEURO - Cranial nerves II-XII intact and symmetric. - Responds appropriately to questions. PSYCHE - Normal mood and affect. PROCEDURES - REVIEW OF IMAGES/STUDIES ASSESSMENT/RECOMMENDATIONS Solange Nichols is a 37 y.o. female with PMH BPD who presents with recurrent tonsillitis. We discussed this pathology at length and the role for bilateral tonsillectomy. The risks, benefits, and alternatives to this procedure were discussed and the patient agreed to proceed with OR. Plan: > Tonsillectomy, [facility], dispo home after I appreciate the opportunity to be involved in Ms. Nichols's care. 07/21/2022 documented in this encounter Plan of Treatment Not on file documented as of this encounter Visit Diagnoses Diagnosis Chronic tonsillitis documented in this encounter Care Teams Smocking Machine Operator Relationship Specialty Start Date End Date Suki Davalos MD [address] [place] [address] PCP - General Family Medicine 03/11/19 10/05/22 documented as of this encounter
--- OUTSIDE RECORDS SUMMARY | 2024-04-29 01:57 | XMS_ITS | Encounter Summary ---
Author Organization [facility] Address [address] [place] [address] Care Team Providers Care Microfilm Processor Name Role Phone Unavailable Primary Care Provider Unavailabl e Encounter Details Date Type Department Care Team (Late st Contact Info) Description 04/25/2008 Before PRISM Converted Visit (Maple) [facility] - Maple conversion [address] [place] [address] Nilesh Yañez, [id number] [place], [place] [address] Social History Tobacco Use Types Packs/Day Years Used Date Smoking Tobacco: Never Assessed Sex and Gender Information Value Date Recorded Sex Assigned at Not on file Gender Identity Not on file Sexual Orientation Not on file documented as of this encounter Plan of Treatment Not on file documented as of this encounter Procedures Procedure Name Priority Date/Time Associated Diagnosis Comments CYTOPATHOLOGY Routine 04/25/2008 0:00 EDT documented in this encounter Results * CYTOPATHOLOGY (04/25/2008 0:00 EDT) Pathology Report: CYTOPATHOLOGY REPORT ? Reports generated via electronic interface contain original data; ? however they are lacking the format of the original report. ? Caution should be taken when reading/interpreti ng unformatted reports. ? Name: ? SOLANGE ELLIOTT ? Accession #: ? [id number] ? : ? 1985 (Age: 23) ??F ?Collect Date: ? 04/25/2008 ? Location: ? [facility] ? Receive Date: ? 04/26/2008 ? Provider: ?ANEA LELONG CNM ? Copy to: ? Specimen/Source: ?ThinPrep Pap Test, Cervix/Endocervix, processed on Cytyc ThinPrep Imaging System, with manual evaluation ? Last Menstrual Period: ? 8/11/08 ? SPECIMEN ADEQUACY ? Satisfactory for Evaluation ? - transformation zone component present ? GENERAL CATEGORIZATION ? Negative for Intraepithelial Lesion or Malignancy ? Document reviewed and electronically signed by: ? Catrachita Grady, SCT(ASCP) ? Report Date: ??05/02/2008 13:16 ? End of Report ? [facility] 04/25/2008 04/26/2008 Nilesh Yañez CNM PATHOLOGY ORDERABLES Performing Organization Address City/State/[facility] Co de Phone Number [place]OL [facility] [place] [facility] [address] [place] [address] documented in this encounter Visit Diagnoses Not on filedocumented in this encounter
--- OUTSIDE RECORDS SUMMARY | 2024-04-29 01:57 | XMS_ITS | Encounter Summary ---
Author Organization [facility] [place] [address] Care Team Providers Care Material Reclaimer Name Role Phone Destiney Alexander APRN Primary Care Provider [phone] Reason for Visit * Auth/Cert (Routine) Specialty Diagnoses / Procedures Referred By Jewel t Referred To Contact Diagnoses Chronic tonsillitis chronic tonsillitis Procedures PRO REMOVAL OF TONSILS, 12+ Y/O TONSILLECTOMY AGE 12 AND OVER (WRVU 3.45) Tanner Amaya MD [facility] [address] [facility] Referral ID Status Reason Start Date Expiration Date Visits Re quested Visits Authorized [id number] 1 1 Encounter Details Date Type Department Care Team (Late st Contact Info) Description 11/07/2022 8:31 AM EST Anesthesia Event [place] [address] Markie Reyna MD [facility] [place] [address] Anesthesia Record Procedure Summary Procedure Name Responsible Anesthesiologist Anesthesia Start Time Anesthesia Stop Time TONSILLECTOMY AGE 12 AND OVER (WRVU 3.45) (Mouth) Markie Reyan MD 11/07/22 0831 11/07/22 0928 Events Date Time Event Comment 11/07/2022 0756 0831 AN Verify 0831 Start 0831 An Start Data 0838 An Induction 0840 An Intubation 0842 Anesthesia Ready 0921 Extubation/LMA Out 09 an stop data 0928 Recovery or ICU Handoff Megan ent care was transferred to the destination unit staff after review of the patient's medical history, current anesthetic/surgical status and plan, according to the Provider Handoff Checklist. 0928 Stop Meds Name Total Midazolam 2 mg fentaNYL 100 mcg IV Lidocaine 50 mg Propofol 350 mg Ondansetron 4 mg Dexamethasone 8 mg Succinylcholine 100 mg Dexmedetomidine 10 mcg ketorolac (Toradol) (30 mg/mL) injection 15 mg lactated ringers infusion 600 mL * Agents Name O2 Air N2O Sevoflurane (et) * Blood No blood administrations on file. Lines, Drains, and Airways Type Details Placement Removal Incision 11/07/22; throat 11/07/22 0000 b y Jackie Sal, ISMAEL (RETIRED) Peripheral IV Line - Single Lumen 11/07/22; 08; metacarpal vein (top of hand), left; [id number] catheter system; Anatomical Landmarks; 20 gauge; distraction, topical anesthetic cream applied, intradermal injection; 0; 11/07/22; 1029 11/07/22 0821 by Shannan Mejia RN 11/07/22 1029 by Quang Lawrence RN ETT Mask Ventilation: No t Attempted (0); ETT Type: Oral, MYRA; ETT Size: 7 mm; Mac Blade: 3; Notes: Asleep, Pre-O2, Stylette; Attempts: 1; Laryngoscopy Grade: 1; Inserted by: Ammy Jones CRNA; Removal Date: 11/07/22; Removal Time: 92011/07/22 0840 by Ammy Jones CRNA 11/07/22 09 by Ammy Jones CRNA documented in this encounter Social History Tobacco Use Types Packs/Day Years [...] on file documented as of this encounter OR Notes * Anesthesia Postprocedure Evaluation - Markie Reyna MD - 11/07/2022 9:33 AM EST Department of Anesthesiology Post-procedure Note Patient: Solange Nichols Procedure Summary Date: 11/07/22 Room / Location: [facility] OR [facility] MAIN OR Anesthesia Start: 830 Anesthesia Stop: 927 Procedure: TONSILLECTOMY AGE 12 AND OVER ([facility] 3.45) (Mouth) Diagnosis: Chronic tonsillitis (chronic tonsillitis) Surgeons: Tanner Amaya MD Responsible Provider: Markie Reyna MD Anesthesia Type: general ASA Status: 2 All Anesthesia Providers: Anesthesiologist: Markie Reyna MD MONITORING MANAGER: Ammy Jones CRNA Vitals Value Taken Time BP 147/82 11/07/22 0930 Temp Pulse 120 11/07/22 0932 Resp 15 11/07/22 0932 SpO2 100 % 11/07/22 0932 Pain Level Vitals shown include unvalidated device data. Patient Location: PACU/[facility] Level of Consciousness: Pain Management: Satisfactory Analgesia PONV: None Cardiovascular Status: Hemodynamically Stable Respiratory Status: Stable Respiratory Status Postoperative Fluid Status: Intravascular EUvolemia Possible Anesthetic Complications: NONE apparent at time of evaluation Final Primary Anesthesia Type: General (The anesthetic type performed was the same as planned.) Comments: * Anesthesia Preprocedure Evaluation - Markie Reyna MD - 11/06/2022 2:44 PM EST Pre-Anesthesia Evaluation for: Solange Nichols a 37 y.o. female. Procedure(s): TONSILLECTOMY AGE 12 AND OVER ([facility] 3.45) Patient Active Problem List Diagnosis Date Noted ??? Low back pain 11/10/2012 Past Medical History: Diagnosis Date ??? Anxiety took Lexapro, Celexa, Xanax in the past. Stopped 02/2015. ??? Chronic back pain Physical therapy, steroid injections in the past. Past Surgical History: Procedure Laterality Date ??? PELVIC LAPAROSCOPY 03/2015 normal anatomy, [facility] Social History Tobacco Use ??? Smoking status: Former Packs/day: 0.50 Years: 5.00 Pack years: 2.50 Types: Cigarettes ??? Smokeless tobacco: Never ??? Tobacco comments: 2009 quit Substance Use Topics ??? Alcohol use: Yes Alcohol/week: 0.0 standard drinks Comment: h/o heavy drinking. Now social drinker. Nothing in . Social History Substance and Sexual Activity Drug Use Yes Comment: marijuana, cocaine, opiates, has not used any drugs since 2009 Allergies Allergen Reactions ??? Prochlorperazine Unknown Medications: MAR and/or home medications have been reviewed. Physical Exam: Preprocedure Vitals Current as of 11/06/22 1444 No BP, pulse, respiration, SpO2, or temperature recorded. Height: 167.6 cm (5' 6) (07/21/22) Weight: 98 kg (216 lb) (07/21/22) BMI: 34.86 IBW: 59.3 kg (130 lb 10.4 oz) Airway Assessment: Mallampati: II TM distance: >3 FB Neck ROM: full Cardiovascular Assessment: system normal Pulmonary Assessment: pulmonary exam normal Dental Assessment: Misc Assessment: IV access: Peripheral line Last Filed Perioperative Cognitive Screening None Anesthesia Plan: ASA 2 general, with a(n) intravenous induction Medical record reviewed. Hx notable for Bipolar disorder, class 1 obesity Plan: GETA Region - Other Informed Consent: Anesthetic plan and risks discussed with patient. Plan discussed with MONITORING MANAGER and attending. Anesthesia Screening documented in this encounter Plan of Treatment Not on file documented as of this encounter Visit Diagnoses Not on filedocumented in this encounter Administered Medications Inactive Administered Medications - up to 3 most recent administrations Medication Order MAR Action Action Date Dose Rate Site dexAMETHasone (Decadron) injection Intravenous, PRN, Starting on Thu11/07/22 at 0843, Until Thu11/07/22 at 0928, Anesthesia Intra-op, Routine Given 11/07/2022 8:43 AM EST 8 mg dexmedeTOMIDine (Precedex) (4 mcg/mL) bolus injection (Anesthsia) Intravenous, PRN, Starting on Thu11/07/22 at 0901, Until Thu11/07/22 at 0928, Anesthesia Intra-op, Routine Given 11/07/2022 9:01 AM EST 10 mcg fentaNYL (pf) (50 mcg/mL) multi-dose injection Intravenous, PRN, Starting on Thu11/07/22 at 0838, Until Thu11/07/22 at 0928, Anesthesia Intra-op, Routine Given 11/07/2022 8:48 AM EST 50 mcg Given 11/07/2022 8:38 AM EST 50 mcg ketorolac (Toradol) (30 mg/mL) injection Intravenous, PRN, Starting on Thu11/07/22 at 0921, Until Thu11/07/22 at 0928, Anesthesia Intra-op, Routine Given 11/07/2022 9:21 AM EST 15 mg lactated ringers infusion 1,000 mL, at 100 mL/hr, Intravenous, CONTINUOUS, Starting on Thu11/07/22 at 0800, Until Thu11/07/22 at 1037, Day of Surgery (Day of Procedure) New Bag 11/07/2022 8:31 AM EST lidocaine (pf) (Xylocaine) (20 mg/mL) 2% injection syringe Intravenous, PRN, Starting on Thu11/07/22 at 0838, Until Thu11/07/22 at 0928, Anesthesia Intra-op, Routine Given 11/07/2022 8:38 AM EST 50 mg midazolam (pf) (Versed) (1 mg/mL) multi-dose injection Intravenous, PRN, Starting on Thu11/07/22 at 0831, Until Thu11/07/22 at 0928, Anesthesia Intra-op, Routine Given 11/07/2022 8:31 AM EST 2 mg ondansetron (pf) (Zofran) (2 mg/mL) injection Intravenous, PRN, Starting on Thu11/07/22 at 0901, Until Thu11/07/22 at 0928, Anesthesia Intra-op, Routine Given 11/07/2022 9:01 AM EST 4 mg propofoL (Diprivan) 10 mg/mL bolus injection (Anesthesia) Intravenous, PRN, Starting on Thu11/07/22 at 0838, Until Thu11/07/22 at 09, Anesthesia Intra-op Given 11/07/2022 8:47 AM EST 50 mg Given 11/07/2022 8:44 AM EST 50 mg Given 11/07/2022 8:42 AM EST 50 mg succinylcholine (Anectine;Quelicin) (20 mg/mL) injection Intravenous, PRN, Starting on Thu11/07/22 at 0839, Until Thu11/07/22 at 0928, Anesthesia Intra-op, Routine Given 11/07/2022 8:39 AM EST 100 mg documented in this encounter Care Teams Material Reclaimer Relationship Specialty Start Date End Date Destiney Alexander APRN [address] [place] [address] PCP - General Family Medicine 10/06/22 documented as of this encounter
--- OUTSIDE RECORDS SUMMARY | 2024-04-29 01:57 | XMS_ITS | Encounter Summary ---
Author Organization [facility] Address [facility] [place] [address] Care Team Providers Care Paint Roller Winder Name Role Phone Suki Davalos MD Primary Care Provider [phone] Reason for Visit * Reason Comments Other new pt/ * Consultation (Routine) - Closed Specialty Diagnoses / Procedures Referred By Jewel mendez Referred To Contact Otolaryngology Diagnoses Streptococcal pharyngitis STREP SORE THROAT, STREPTOCOCCAL YoungDestiney APRN [address] [place] [address] [facility] Otolaryngology [address] [place] [id number] Referral ID Status Reason Start Date Expiration Date V isits Requested Visits Authorized [id number] Closed Consult, Test & Treat Connection Center 03/09/2019 06/09/2019 1 1 Encounter Details Date Type Department Care Team (Late st Contact Info) Description 03/30/2019 1:00 PM EDT Office [place] [address] Manuel Abel PA [facility] [place] [address] Lesion of vocal fold; Sore throat Social History Tobacco Use Types Packs/Day Years [...] - Inhaled Oxygen Concentration - - Weight - - Height 167.6 cm (5' 6) 03/30/2019 12:59 PM EDT Body Mass Index - - documented in this encounter Progress Notes * Manuel Abel PA - 03/30/2019 1:00 PM EDT [facility] NEW PATIENT CONSULTATION I was asked to see Solange Nichols in consultation by Destiney Alexander for recurernt sore throats. History was obtained through review of the relevant records, discussion with referring physician and/or patient interview. History of present illness: This is a 34 y.o. female. Has had several strep positive sore throats in her life. Had another positive strep test a few weeks ago, had a sore throat. Was having difficulty swallowing. Was put on PCN for 10 days, symptoms improved. Now asymptomatic. No recent fevers, chills, night sweats. Prior to this, last tested sore throat was about 2 years ago. Has had 5-6 sore throats over the last year. Normally doesn't take any medication for her episodes. Head and neck symptom survey >Symptom ?? >Comments Dysphagia n Odynophagia n Voice change or hoarseness n Breathing difficulties n Otalgia n Hemoptysis n Adenopathy n Weight loss n Xerstomia n Trismus n Numbness n Loose Dentition n Taste disturbance n ?? No surgeries in the head or neck. Maternal grandmother had breast cancer. Smoked 3/4 ppd for about 5 years, quit about 10 years. No excessive alcohol use. No drug use in the last 9 years. 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 PROBLEM LIST Patient Active Problem List Diagnosis Code ??? Low back pain M54.5 PAST MEDICAL HISTORY Past Medical History: Diagnosis Date ??? Anxiety took Lexapro, Celexa, Xanax in the past. Stopped 02/2015. ??? Chronic back pain Physical therapy, steroid injections in the past. SOCIAL HISTORY Social History Tobacco Use ??? Smoking status: Former Smoker Packs/day: 0.50 Years: 5.00 Pack years: 2.50 Types: Cigarettes ??? Smokeless tobacco: Former User Quit date: 06/19/2015 ??? Tobacco comment: 2009 quit Substance Use Topics ??? Alcohol use: Yes Alcohol/week: 0.0 oz Comment: h/o heavy drinking. Now social drinker. [...] Illness. PHYSICAL EXAMINATION Physical Examination: VITALS - Height 167.6 cm (5' 6). GENERAL - Well dressed and well nourished. [...] adequate airflow, healthy pink mucosa. - Septum has deviation to the left. - Inferior turbinates normal exam. MOUTH - Lips and gingiva pink, moist, without lesions. - Gums/dentition healthy. - Tongue and floor of mouth soft without lesions or masses. - Hard palate without lesions. PHARYNX - Soft palate without lesions. - Uvula is midline. - Oropharynx symmetric. NECK - Soft, supple, without significant lymphadenopathy. - Thyroid gland without masses or asymmetry. - Trachea midline without deviation. LUNGS - Clear to auscultation bilaterally without wheezes. HEART - Regular rate and rhythm without murmur. NEURO - Cranial nerves II-XII intact and symmetric. - Responds appropriately to questions. PSYCHE - Normal mood and affect. PROCEDURES Procedure: Direct Laryngoscopy: Indications: Evaluation for mucosal lesion of the upper airway. The risks of the procedure were reviewed, and verbal consent was obtained. Topical anesthetic and decongestant applied to the nasal cavity. The scope was passed through the nasal cavity, through the nasopharynx, and into the oropharynx. The examination was recorded on the TelePack Unit and uploadedto the [employer]. Patient tolerated the procedure well without any complications. Nasal Cavity: Normal appearing mucosa. No obstructions or lesions noted. Nasopharynx: No lesions or masses noted. Oropharynx: Base of tongue/vallecula symmetric with normal appearing lingual tonsillar tissue. No masses, ulcerations or mucosal lesions noted. Larynx: Epiglottis is thin and non-edematous. Arytenoids are symmetric. True cords demonstrate full and symmetric motion; there appears to be some white tissue swelling that overlies part of the posterior half of the left true vocal fold, and is consistent with a vocal fold polyp. Hypopharynx: Piriform sinuses are clear bilaterally, without evidence of masses or lesions. No significant pooling of secretions was noted. No overt laryngeal penetration or aspiration. REVIEW OF IMAGES/STUDIES ASSESSMENT/RECOMMENDATIONS Solange Nichols is a 34 y.o. female with the above noted history, physical exam, and direct laryngoscopy findings. Discussed that I would discuss her case with one the surgeons in our practice regarding whether they considered tonsillectomy indicated in this case. Discussed her performing salt-water gargles 2 times per day until follow up. 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 - The patient expressed understanding of these points and agreement with the plan, and all questions that were asked were answered to the patient's satisfaction. Plan: > Return to clinic in 2 months for reassessment of the left vocal fold lesion. > Salt water gargles 2 times per day until return to clinic. Communicate re: RS3 recs > Consultation with the surgeon regarding her case. > Patient should call if their symptoms worsen or fail to improve, if new concerning symptoms arise, or if they have any questions or concerns regarding their treatment. I appreciate the opportunity to be involved in Ms. Nichols's care. Manuel Abel PA-C [place], [place] [address] Office 03/30/2019 documented in this encounter Plan of Treatment Not on file documented as of this encounter Visit Diagnoses Diagnosis Lesion of vocal fold Other diseases of vocal cords Sore throat Acute pharyngitis documented in this encounter Care Teams Paint Roller Winder Relationship Specialty Start Date End Date Suki Davalos MD [address] [place] [address] PCP - General Family Medicine 03/11/19 10/05/22 documented as of this encounter
--- OUTSIDE RECORDS SUMMARY | 2024-04-29 01:57 | XMS_ITS | Encounter Summary ---
Author Organization [facility] Address [address] [place] [address] Care Team Providers Care Cad Designer Name Role Phone Lyndon Cullen MD Primary Care Provider Unavailabl e Encounter Details Date Type Department Care Team (Late st Contact Info) Description 03/31/2007 Results Only [facility] [address] [place] [address] [address]h Joy[address] [place], [place] [address] Social History Tobacco Use Types Packs/Day Years Used Date Smoking Tobacco: Never Assessed Sex and Gender Information Value Date Recorded Sex Assigned at Not on file Gender Identity Not on file Sexual Orientation Not on file documented as of this encounter Plan of Treatment Not on file documented as of this encounter Procedures Procedure Name Priority Date/Time Associated Diagnosis Comments CYTOPATHOLOGY Routine 03/31/2007 0:00 EDT documented in this encounter Results * CYTOPATHOLOGY (03/31/2007 0:00 EDT) Pathology Report: CYTOPATHOLOGY REPORT Reports generated via electronic interface contain original data; however they are lacking the format of the original report. Caution should be taken when reading/interpreti ng unformatted reports. Name: ? SOLANGE ELLIOTT ? Accession #: ? [id number] : ? 1985 (Age: 22) ??F ?Collect Date: ? 03/31/2007 Location: ? [facility] ? Receive Date: ? 04/01/2007 Provider: ?NILESH JOYA CNM Copy to: ? Specimen/Source: ?ThinPrep Pap Test, Cervix/Endocervix, processed on [employer] ThinPrep Imaging System, with manual evaluation Last Menstrual Period: ? Hormonal/Contracep tive Status: ? Oral contraceptives Other: ? HPVA - HPV testing requested if ASC-US on the current ThinPrep Pap test. ? SPECIMEN ADEQUACY ? Satisfactory for Evaluation - transformation zone component present GENERAL CATEGORIZATION ? Negative for Intraepithelial Lesion or Malignancy ? Document reviewed and electronically signed by: ? OZZY Forman(ASCP) ? Report Date: ??04/06/2007 09:41 End of Report [facility] 03/31/2007 04/01/2007 Nilesh Joya CNM PATHOLOGY ORDERABLES [facility] [address] [place] [address] documented in this encounter Visit Diagnoses Not on filedocumented in this encounter Care Teams Cad Designer Relationship Specialty Start Date End Date Lyndon Cullen MD PCP - General 05/15/09 02/06/20 documented as of this encounter
--- OUTSIDE RECORDS SUMMARY | 2024-04-29 01:57 | XMS_ITS | Encounter Summary ---
Author Organization [facility] Address [address] [place] [address] Care Team Providers Care Machine Setter Supervisor Name Role Phone Thierno Cullen MD Primary Care Provider Unavailabl e Encounter Details Date Type Department Care Team (Late st Contact Info) Description 06/25/2015 Results Only [facility] [phone] Maricruz Parikh MD [address] [place] [address] [place] [address] Social History Tobacco Use Types Packs/Day Years [...] Diagnosis Comments PAP TEST- RESULT ONLY Routine 06/25/2015 0:00 EDT documented in this encounter Results * PAP TEST- RESULT ONLY (06/25/2015 0:00 EDT) Pathology Report: CYTOPATHOLOGY REPORT Reports generated via electronic interface contain original data; however they are lacking the format of the original report. Caution should be taken when reading/interpreti ng unformatted reports. Name: ? SOLANGE ELLIOTT ? Accession #: ? [id number] : ? 1985 (Age: 30) ??F ?Collect Date: ? 06/25/2015 Location: ? [facility] ? Receive Date: ? 06/26/2015 Provider: ?MARICRUZ PARIKH MD Copy to: ?THIERNO CULLEN MD ? Specimen/Source: ?Pap Test, Cervix/Endocervix, ThinPrep Imaging System with manual evaluation Last Menstrual Period: ? Menstrual/Pregnanc y Status: ? SPECIMEN ADEQUACY ? Satisfactory for Evaluation - transformation zone component present GENERAL CATEGORIZATION ? Negative for Intraepithelial Lesion or Malignancy INTERPRETATION ? Shift in abi present suggestive of bacterial vaginosis. ? Document reviewed and electronically signed by: ? Em Bhandari, CT(ASCP)(IAC) ? Report Date: ??06/27/2015 14:51 End of Report [facility] 06/25/2015 06/26/2015 Maricruz Parikh MD PATHOLOGY ORDERABLES [facility] [address] [place] [address] documented in this encounter Visit Diagnoses Not on filedocumented in this encounter Care Teams Machine Setter Supervisor Relationship Specialty Start Date End Date Thierno Cullen MD PCP - General 05/15/09 02/06/20 documented as of this encounter
--- OUTSIDE RECORDS SUMMARY | 2024-04-29 01:57 | XMS_ITS | Encounter Summary ---
Author Organization [facility] [place] [address] Care Team Providers Care Ceramic Coater Machine Name Role Phone Lyndon Cullen MD Primary Care Provider [phone] Encounter Details Date Type Department Care Team (Late st Contact Info) Description 11/10/2012 External Results XRay at [address] [place] [address] Lyndon Cullen MD [address] [place], [place] [phone] Social History Tobacco Use Types Packs/Day Years Used Date Smoking Tobacco: Never Sex and Gender Information Value Date Recorded Sex Assigned at Not on file Gender Identity Not on file Sexual Orientation Not on file documented as of this encounter Plan of Treatment Not on file documented as of this encounter Procedures Procedure Name Priority Date/Time Associated Diagnosis Comments MRI/MRA SCAN Routine 09/28/2012 documented in this encounter Results * Scan Doc: MRI/MRA (09/28/2012) Anatomical Region Laterality Modality Other Lyndon Cullen MD MEDIA MGR SCAN EXT O RDR/RSLT documented in this encounter Visit Diagnoses Not on filedocumented in this encounter Care Teams Ceramic Coater Machine Relationship Specialty Start Date End Date Lyndon Cullen MD [address] [place], [place] [id number] PCP - General 07/23/10 03/10/19 documented as of this encounter
--- OUTSIDE RECORDS SUMMARY | 2024-04-29 01:57 | XMS_ITS | Encounter Summary ---
Author Organization [facility] [address] Care Team Providers Care Presser Machine Name Role Phone Cynthia Alexandery DANIELLE Primary Care Provider [phone] Reason for Visit * Auth/Cert (Routine) Specialty Diagnoses / Procedures Referred By Jewel t Referred To Contact Diagnoses Chronic tonsillitis chronic tonsillitis Procedures PRO REMOVAL OF TONSILS, 12+ Y/O TONSILLECTOMY AGE 12 AND OVER (WRVU 3.45) Tanner Amaya MD [facility] [place] [address] [facility] Referral ID Status Reason Start Date Expiration Date Visits Re quested Visits Authorized [id number] 1 1 Encounter Details Date Type Department Care Team (Late st Contact Info) Description 11/07/2022 8:30 AM EST - 11/07/2022 10:15 AM EST Surgery [place] [address] Tanner Amaya MD [facility] [place] [address] TONSILLECTOMY AGE 12 AND OVER (WRVU 3.45) Social History Tobacco Use Types Packs/Day Years [...] Pulse 80 11/07/2022 10:00 AM EST Temperature 36.5 ??C (97.7 ??F) 11/07/2022 9:30 AM ES T Respiratory Rate 15 11/07/2022 10:00 AM EST [...] and you should call the office at [phone]. If there is active, profuse bleeding at night or on the weekends, call the office to speak with the doctor chronic specialist and/or go tothe emergency room. For a small adenoid bleed, which is a slow persistent bloody nasal drip when the head is tilted forward, spray 2 sprays of 12 Hr. Afrin Decongestant Nasal [place] into each nostril. Keep the head elevated; [...] 11/07/2022 9:12 AM EST Consent for protocol [id number]: EIT- Oral Lesion Study Solange Nichols was seen on 11/07/22 Patient was offered the opportunity to participate in the study [id number]: EIT- Oral Lesion Study. Protocol was reviewed [...] understanding of this protocol and consented to [id number]: EIT- Oral Lesion Study. Consent form was [...] procedure. JERRY Jaramillo 11/07/22 8:26 AM Pager: [phone] documented in this encounter Miscellaneous Notes * [...] AM EST Removal Of Tonsils, 12+ Y/O ([address]35) 11/07/2022 8:31 AM EST Chronic tonsillitis POCT URINE Routine 11/07/2022 8:20 AM EST TONSILLECTOMY OVER AGE 12 Routine 11/07/2022 7:02 AM EST Chronic tonsillitis documented in this encounter Results * Specimen to Pathology (11/07/2022 8:49 AM EST) AP Specimen 11/07/2022 8:49 AM EST 11/07/2022 8:49 AM EST Narrative [facility] - 11/07/2022 8:49 AM EST Specimen requisition ordered. ??Separate Pathology report to follow Tanner Amaya MD PATHOLOGY/CYTOLOGY ORDERABLES Performing Organization Address [facility] Co de Phone Number [facility] [place] [phone] * Specimen to Pathology (11/07/2022 8:49 AM EST) AP Specimen 11/07/2022 8:49 AM EST 11/07/2022 8:49 AM EST Narrative [facility] - 11/07/2022 8:49 AM EST Specimen requisition ordered. ??Separate Pathology report to follow Tanner Amaya MD PATHOLOGY/CYTOLOGY ORDERABLES Performing Organization Address [facility] Co de Phone Number [facility] [place] [phone] * Surgical Pathology Report (11/07/2022 8:48 AM EST) Final Diagnosis [id number] ? Location: [facility]; A The signing pathologist has (i) examined the relevant preparation(s) for the specimen(s) and (ii) rendered or confirmed the diagnosis(es). . ?Surgical Pathology DIAGNOSIS A - Left tonsil, excision: Reactive lymphoid hyperplasia with actinomyces granules. B - Right tonsil, excision: Reactive lymphoid hyperplasia. Electronically signed by: ?Can Poppy WOODS Verified: ??11/12/2022 13:55 ??Pathologist Performed at: ??-[facility] Dept. of Pathology, [place] [address] Screwhead Stoner And Polisher: Domingo aHn MD, AP, ??CLIA Certificate: [id number] SPECIMEN(S) SUBMITTED A - LEFT TONSIL, excision (1) B - RIGHT TONSIL, excision (1) CLINICAL INFORMATION Chronic tonsillitis SPECIMEN PROCESSING A - Labeled/Fixative: Left tonsil, fresh. Quantity/Size: Single, 2.4 x 1.4 x 0.9 cm. Tissue Description: Dean-pink, rubbery, focally hemorrhagic tonsil. Cut surfaces are congested, dean-pink focally with grumous dean-yellow material and the tonsillar crypts. Sections/Processi ng: Branch Credit Counselor sections in 1 cassette labeled A1. B - Labeled/Fixative: Right tonsil, fresh. Quantity/Size: Single, 2.3 x 1.8 x 1.0 cm. Tissue Description: Dean-pink, rubbery, focally hemorrhagic tonsil. Cut surfaces are congested, dean-pink. Sections/Processi ng: Branch Credit Counselor sections in 1 cassette labeled B1. ??pps 11/12/2022 1:[address] [facility] BILATERAL PALATINE TONSILS / Unknown 11/07/2022 8:48 AM EST 11/07/2022 8:48 AM EST BILATERAL PALATINE TONSILS / Unknown 11/07/2022 8:48 AM EST 11/07/2022 8:48 AM EST Tanner Amaya MD PATHOLOGY/CYTOLOGY ORDERABLES [facility] [address] [place] [address] * POCT urine (11/07/2022 8:20 AM EST) POC Urine HCG Negative POC Control Internal Controls Acceptable 11/07/2022 8:20 AM EST Ammy Jones MALLORY POINT OF CARE TEST ORDERABLES documented in this encounter Visit Diagnoses Diagnosis Chronic tonsillitis Chronic tonsillitis documented in this encounter Administered [...] Given 11/07/2022 7:56 AM EST 1,000 mg BUpivacaine (pf) (Marcaine) (7.5 mg/mL) 0.75% injection ONCE PRN, Starting on Thu11/07/22 at 0906, Until Thu11/07/22 at 1238, Intra-Operative (Intra-Procedure), Routine Given 11/07/2022 9:06 AM EST 6 mLs 19- Surgical Site oxyCODONE (Roxicodone) (1 mg/mL) oral liquid 5 [...] CRNA)0921 (Anesthesia Volume Adjustment - Provider: Ammy Jones CRNA) PRN Medication Order 11/05/2022 11/06/2022 11/07/2022 BUpivacaine (pf) (Marcaine) (7.5 mg/mL) 0.75% injection (CANCELED) ONCE PRN, Starting on Thu11/07/22 at 0906, Until Thu11/07/22 at 1238, Intra-Operative (Intra-Procedure), Routine 0906 (Given - Provid er: Tanner Amaya MD) oxyCODONE (Roxicodone) (1 mg/mL) oral liquid 5 mg 5 mg, Oral, EVERY 4 HOURS PRN, Starting on Thu11/07/22 at 0938, Until Thu11/07/22 at 1238, Pain, Routine documented in this encounter Care Teams Presser Machine Relationship Specialty Start Date End Date Destiney Alexander APRN [address] [place] [address] PCP - General Family Medicine 10/06/22 documented as of this encounter
--- OUTSIDE RECORDS SUMMARY | 2024-04-29 01:57 | XMS_ITS | Referral Summary ---
Author Organization [facility] Address [address] [place] [address] Care Team Providers Care Field Artillery Basic Name Role Phone Destiney Alexander OPTICIAN MANAGER Primary Care Provider [phone] Allergies Active Allergy Reactions Criticality Noted Date [...] back pain radiating to both legs 04/21/2013 Social History Tobacco Use Types Packs/Day Years [...] 31.8 04/21/2013 1056 EDT Plan of Treatment Not on file Care Teams Field Artillery Basic Relationship Specialty Start Date End Date Destiney Alexander FNP [address] [place] [address] PCP - General 02/07/20
--- OUTSIDE RECORDS SUMMARY | 2024-04-29 01:57 | XMS_ITS | Encounter Summary ---
Author Organization [facility] [address] Care Team Providers Care Social Service Worker Name Role Phone Suki Davalos MD Primary Care Provider [phone] Encounter Details Date Type Department Care Team (Late st Contact Info) Description 04/14/2019 [place] [phone] Celeste Mcarthur Social History Tobacco Use Types [...] * Telephone Encounter - Celeste Mcarthur - 04/14/2019 10:10 AM EDT Message that voicemail was full, Mailed AVS with DM appt in 2 months when JAVIER in clinic documented in this encounter Plan of Treatment Not on file documented as of this encounter Visit Diagnoses Not on filedocumented in this encounter Care Teams Social Service Worker Relationship Specialty Start Date End Date Suki Davalos MD [address] [place] [address] PCP - General Family Medicine 03/11/19 10/05/22 documented as of this encounter
--- OUTSIDE RECORDS SUMMARY | 2024-04-29 01:57 | XMS_ITS | Encounter Summary ---
Author Organization [facility] Address [address] [place] [address] Care Team Providers Care Dude Ranch Manager Name Role Phone Lyndon Cullen MD Primary Care Provider Unavailabl e Encounter Details Date Type Department Care Team (Late st Contact Info) Description 08/19/2018 Results Only [facility] [phone] Joselyn Cuevas MD [facility] [place], [place] [id number] Social History Tobacco Use Types Packs/Day Years [...] Priority Date/Time Associated Diagnosis Comments SURGICAL PATHOLOGY Routine 08/19/2018 8:22 EST documented in this encounter Results * SURGICAL PATHOLOGY (08/19/2018 8:22 EST) Pathology Report: SURGICAL PATHOLOGY REPORT Reports generated via electronic interface contain original data; however they are lacking the format of the original report. Caution should be taken when reading/interpret ing unformatted reports. Name: ? SOLANGE ELLIOTT ? Accession #: ? [id number] ? : ? 1985 (Age: 33) ??F ? Collect Date: ? 08/19/2018 ? Location: ? [facility] ? Receive Date: ? 08/19/2018 ? Provider: JOSELYN CUEVAS MD Copy to: GIANLUCA YOUNG MD ? Final Pathologic Diagnosis: A. ENDOCERVIX, CURETTAGE: - Fragments of benign endocervical mucosa. B. CERVIX, 1 O'CLOCK, BIOPSY: - Ectocervical mucosa with reactive changes. See comment. Comment: Deeper sections of specimen (B) have been examined. ?? Dr. Kelly 08/26/2018 1:14 PM Document reviewed and electronically signed by: SUNDAY PIZARRO MD Report ??Date: 08/27/2018 11:55 By the signature above, the attending physician certifies that he/she has personally conducted a gross and/or microscopic examination of the described specimens and rendered or confirmed the above diagnosis. Specimen(s) Received: A. ??ECC B. ??1 o'clock bx Clinical History: ASCUS (+) HPV Gross Description: A. ?Received in formalin labelled with proper patient identification (initials T, K) and endocx curettage is an aggregate of clear and dark brown viscous material (1.3 x 1.2 x 0.4 cm). Submitted in toto in A1. B. ?Received in formalin labelled with proper patient identification (initials T, K) and cx 1 o'clock is a single [id number]-[id number] speckled tissue fragment (0.4 x 0.3 x 0.2 cm). Submitted intact in B1. Maria E Asencio 08/20/2018 8:56 AM End of Report [facility] 08/19/2018 8:22 EST 08/19/2018 8:22 EST Joselyn Cuevas MD PATHOLOGY ORDERABLES [facility] [address] [place] [address] documented in this encounter Visit Diagnoses Not on filedocumented in this encounter Care Teams Dude Ranch Manager Relationship Specialty Start Date End Date Lyndon Cullen MD PCP - General 05/15/09 02/06/20 documented as of this encounter
--- OUTSIDE RECORDS SUMMARY | 2024-04-29 01:57 | XMS_ITS | Encounter Summary ---
Author Organization [facility] Address [facility] [place] [address] Care Team Providers Care Labor Service Representative Name Role Phone Suki Davalos MD Primary Care Provider [phone] Reason for Visit * Reason Comments Follow-up Encounter Details Date Type Department Care Team (Late st Contact Info) Description 05/30/2019 10:30 AM EDT Office [place] [address] Manuel Abel PA [facility] [address] Lesion of vocal fold; Sore throat Social [...] - Inhaled Oxygen Concentration - - Weight 106.6 kg (235 lb) 05/30/2019 10:43 AM EDT Height 167.6 cm (5' 6) 05/30/2019 10:43 AM EDT Body Mass Index 37.93 05/30/2019 10:43 AM EDT documented in this encounter Progress Notes * Manuel Abel PA - 05/30/2019 10:30 AM EDT [facility] OTOLARYNGOLOGY FOLLOW UP NOTE Solange Nichols is a 34 y.o. female followed for: Reccurent sore throat and vocal fold polyp. Patient presented with recurrent sore throats on 03/30/19, having 5-6 over the last year, some of which have been strep positive. 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 She was advised to do salt water gargles regularly, and to return for reassessment of the polyp. New issues since last visit: No pain in her throat currently. No infections since last visit. No recent fevers, chills, night sweats. Head and neck symptom survey >Symptom ?? [...] Examination: VITALS - Height 167.6 cm (5' 6), weight 106.6 kg (235 lb). GENERAL - Well dressed and well nourished. [...] on the TelePack Unit and uploadedto the [employer] And Counter Worker. Patient tolerated the procedure well without any complications. Nasal Cavity: Normal appearing mucosa. No obstructions or lesions noted. Nasopharynx: No lesions or masses noted. Oropharynx: Base of tongue/vallecula symmetric with normal appearing lingual tonsillar tissue. No masses, ulcerations or mucosal lesions noted. Larynx: Epiglottis is thin and non-edematous. Arytenoids are symmetric. True cords demonstrate full and symmetric motion. Hypopharynx: Piriform sinuses are clear bilaterally, without evidence of masses or lesions. No significant pooling of secretions was noted. No overt laryngeal penetration or aspiration. REVIEW OF IMAGES/STUDIES ASSESSMENT/RECOMMENDATIONS - Laryngeal polyp tissue appears to be resolved--no evidence of a mass on direct laryngoscopy today. - Discussed the patient's frequent throat infections, and that I would discuss possible tonsillectomy with Dr. Amaya, and communicate regarding recommendations. - Discussed continuing salt-water gargles 2 times per day. - The patient expressed understanding of these points and agreement with the plan, and all questions that were asked were answered to the patient's satisfaction. Plan: > Consultation with Dr. Amaya regarding tonsillectomy. > Patient should call if their symptoms worsen or fail to improve, if new concerning symptoms arise, or if they have any questions or concerns regarding their treatment. I appreciate the opportunity to be involved in Ms. Nichols's care. Manuel Abel PA-C [place], [place] [address] Office 05/30/2019 documented in this encounter Plan of Treatment Not on file documented as of this encounter Visit Diagnoses Diagnosis Lesion of vocal fold Other diseases of vocal cords Sore throat Acute pharyngitis documented in this encounter Care Teams Labor Service Representative Relationship Specialty Start Date End Date Suki Davalos MD [address] [place] [id number] PCP - General Family Medicine 03/11/19 10/05/22 documented as of this encounter
--- OUTSIDE RECORDS SUMMARY | 2024-04-29 01:57 | XMS_ITS | Encounter Summary ---
Author Organization [facility] Address [address] [place] [address] Care Team Providers Care Orthopedic Specialist Name Role Phone Lyndon Cullen MD Primary Care Provider Unavailabl e Encounter Details Date Type Department Care Team (Late st Contact Info) Description 03/26/2006 Results Only [facility] [address] [place] [address] [place] [address] Social History Tobacco Use Types Packs/Day Years Used Date Smoking Tobacco: Never Assessed Sex and Gender Information Value Date Recorded Sex Assigned at Not on file Gender Identity Not on file Sexual Orientation Not on file documented as of this encounter Plan of Treatment Not on file documented as of this encounter Procedures Procedure Name Priority Date/Time Associated Diagnosis Comments CYTOPATHOLOGY Routine 03/26/2006 0:00 EDT documented in this encounter Results * CYTOPATHOLOGY (03/26/2006 0:00 EDT) Pathology Report: CYTOPATHOLOGY REPORT Reports generated via electronic interface contain original data; however they are lacking the format of the original report. Caution should be taken when reading/interpreti ng unformatted reports. Name: ? EARLSOLANGE FRANK Selwyn ? Accession #: ? [id number] : ? 1985 (Age: 21) ??F ?Collect Date: ? 03/26/2006 Location: ? [facility] ? Receive Date: ? 03/30/2006 Provider: ?JUAN MANUEL VELMA ROLLE Copy to: ? Specimen/Source: ?ThinPrep Pap Test, Cervix/Endocervix, processed on E[employer] ThinPrep Imaging System, with manual evaluation Last Menstrual Period: ? 11/02/05 Menstrual/Pregnanc y Status: ? Other: ? HPVA - HPV testing requested if ASC-US on the current ThinPrep Pap test. ? SPECIMEN ADEQUACY ? Satisfactory for Evaluation - transformation zone component present GENERAL CATEGORIZATION ? Negative for Intraepithelial Lesion or Malignancy INTERPRETATION ? Fungal organisms present morphologically consistent with Che species. ? Document reviewed and electronically signed by: ? OZZY Whitt(ASCP) ? Report Date: ??04/01/2006 11:50 End of Report [facility] 03/26/2006 03/30/2006 Juan Manuel Velma ROLLE PATHOLOGY ORDERABLES [facility] [address] [place] [address] documented in this encounter Visit Diagnoses Not on filedocumented in this encounter Care Teams Orthopedic Specialist Relationship Specialty Start Date End Date Lyndon Cullen MD PCP - General 05/15/09 02/06/20 documented as of this encounter
--- OUTSIDE RECORDS SUMMARY | 2024-04-29 01:57 | XMS_ITS | Encounter Summary ---
Author Organization [facility] Address [address] [place] [address] Care Team Providers Care Scrap Dealer Name Role Phone Subhash, Lyndon MELGAR Primary Care Provider Destiney Flores Primary Care Provider [phone] Encounter Details Date Type Department Care Team (Late st Contact Info) Description 01/18/2020 Lab Requisition [facility] Pathology & Laboratory Medicine - [facility] [address] [place], [place] [address] Outr Resulting Lab, Provider Social History Tobacco [...] Procedure Name Priority Date/Time Associated Diagnosis Comments FECAL BACTERIAL PATHOGENS BY PCR Routine 01/17/2020 20:10 EDT documented in this encounter Results * FECAL BACTERIAL PATHOGENS BY PCR (01/17/2020 20:10 EDT) Salmonella PCR Negative Negative 01/19/2020 10:42 EDT [facility] Shigella/Enteroin vasive E. coli Negative Negative 01/19/2020 10:42 EDT [facility] CAMPYLOBACTER PCR Negative Negative 01/19/2020 10:42 EDT [facility] Shiga Toxin PCR Negative Negative 0 10:42 EDT [facility] Feces SPECIMEN FROM RECTUM / Unknown Stool Collect / Unknown 01/17/2020 20:10 EDT 01/18/2020 18:58 EDT Provider Outr Resulting Lab MICROBIOLOGY - GENERAL ORDERABLES Performing Organization Address City/State/[facility] Co de Phone Number [facility] [address] [place] [address] documented in this encounter Visit Diagnoses Not on filedocumented in this encounter Care Teams Scrap Dealer Relationship Specialty Start Date End Date Lyndon Cullen MD PCP - General 05/15/09 02/06/20 Destiney Alexander FNP [address] [id number] PCP - General 02/07/20 documented as of this encounter
--- OUTSIDE RECORDS SUMMARY | 2024-04-29 01:57 | XMS_ITS | Encounter Summary ---
Author Organization [facility] Address [address] [place] [address] Care Team Providers Care Information Technology Associate Name Role Phone Lyndon Cullen MD Primary Care Provider Unavailabl e Encounter Details Date Type Department Care Team (Latest Contact Info) Description 12/11/2017 15:07 EDT - 12/11/2017 23:59 EDT Hospital Encounter [address] [address] Unknown, ProviderMD Discharge Disposition: Home or Self [...] Code Departure Means Destination Home or Self [facility] documented in this encounter Plan of Treatment Not on file documented as of this encounter Visit Diagnoses Not on filedocumented in this encounter Care Teams Information Technology Associate Relationship Specialty Start Date End Date Lyndon Cullen MD PCP - General 05/15/09 02/06/20 documented as of this encounter
--- OUTSIDE RECORDS SUMMARY | 2024-04-29 01:57 | XMS_ITS | Encounter Summary ---
Author Organization [facility] Address [address] [place] [address] Care Team Providers Care Support Team Member Name Role Phone Thierno Cullen MD Primary Care Provider Unavailabl e Encounter Details Date Type Department Care Team (Late st Contact Info) Description 06/04/2011 Results Only [facility] - [facility] ([facility] [address] [place], [place] [address] Leslie Jaffe MD [address] [facility] [place] [address] Social History Tobacco Use Types [...] Date/Time Associated Diagnosis Comments SURGICAL PATHOLOGY Routine 06/04/2011 0:00 EDT documented in this encounter Results * SURGICAL PATHOLOGY (06/04/2011 0:00 EDT) Pathology Report: SURGICAL PATHOLOGY REPORT Reports generated via electronic interface contain original data; however they are lacking the format of the original report. Caution should be taken when reading/interpreti ng unformatted reports. Name: ? SOLANGE ELLIOTT ? Accession #: ? [id number] ? : ? 1985 (Age: 26) ??F ? Collect Date: ? 06/04/2011 ? Location: ? [facility] ? Receive Date: ? 06/04/2011 ? Provider: LESLIE JAFFE MD Copy to: THIERNO CULLEN MD ? Final Pathologic Diagnosis: ? Endocervix, curettings: - Benign endocervical tissue. Document reviewed and electronically signed by: RADHA PADILLA MD Report ??Date: 06/09/2011 19:27 By the signature above, the attending physician certifies that he/she has personally conducted a gross and/or microscopic examination of the described specimens and rendered or confirmed the above diagnosis. Specimen(s) Received: ? ECC Clinical History: ? ASCUS (+) HPV Gross Description: ? Received in formalin labelled Magdalena, Solange and endo cx are 2 cc of blood-tinged mucus admixed with fragments of red-brown tissue. ??The specimen is submitted entirely in one cassette. ??(Satnam Muniz/hunter End of Report [facility] 06/04/2011 06/04/2011 21: 14 EDT Leslie Jaffe MD PATHOLOGY ORDERABLES [facility] [address] [place] [address] documented in this encounter Visit Diagnoses Not on filedocumented in this encounter Care Teams Support Team Member Relationship Specialty Start Date End Date Thierno Cullen MD PCP - General 05/15/09 02/06/20 documented as of this encounter
[2024-04-29 12:42] LABS: Albumin 3.8 g/dL (3.4-5.0); FREE T4 0.88 ng/dL (0.76-1.46); TSH 2.78 uIU/Ml (0.36-3.74)
[2024-04-29 12:43] LABS: Lithium 0.3 mmol/L (0.6-1.2)
[2024-04-29 13:07] LABS: BUN 17 mg/dL (7-18); CREATININE 0.9 mg/dL (0.55-1.02); Calcium 9.4 mg/dL (8.5-10.1); Chloride 105 mmol/L (98-107); Estimated GFR 84.44 (mL/min/1.73m2); Glucose 93 mg/dL (74-106); PHOSPHORUS 3.5 mg/dL (2.6-4.7); Potassium 4.1 mmol/L (3.5-5.1); Sodium 138 mmol/L (136-145)
== END 2024-04-29 01:52 | disposition home or self-care (01) ==
LOC: LOS 01:51
PROVIDERS: PCP Nurse Practitioner Family; Visit Provider Nurse Practitioner Family
DX: F31.62 Bipolar disorder, current episode mixed, moderate (principal); F43.12 Post-traumatic stress disorder, chronic; E66.8 Other obesity; Z51.81 Encounter for therapeutic drug level monitoring; Z79.899 Other long term (current) drug therapy
CPT/HCPCS: 36415; 80069; 80076; 80178; 84439; 84443

== ENCOUNTER 2024-10-18 19:56 | Day surgery (SDC) | payer OTHER, MEDICAID, SELFPAY ==
[2024-10-18] VITALS (8 sets, daily range): BP systolic 117–137; BP diastolic 64–82; PULSE 68–85; RESP 16; TEMP 36.8; O2SAT 98–100
--- NOTE | 2024-10-18 20:33 | DI.CT_ITS ---
Exam(s) CT ABDOMEN PELVIS W EXAM: CT ABDOMEN PELVIS W CLINICAL HISTORY: RLQ abd pain TECHNIQUE: Imaging Protocol: Axial computed tomography images with coronal and sagittal reformatted images were created and reviewed. CONTRAST MATERIAL: Intravenous: Omnipaque 350 Contrast volume:100 mL Oral: No COMPARISON: CT CT ABDOMEN PELVIS W from 02/10/2020 FINDINGS: ABDOMEN: Lung Bases: No acute abnormality. Liver: Normal density. No measurable mass. Portal, Superior Mesenteric, and Splenic Veins: Unremarkable. Gallbladder and Biliary Tract: Status post cholecystectomy. No significant biliary ductal dilatation is seen. Pancreas: Normal density, no abnormal calcifications or inflammatory process. Spleen: Normal. Adrenals: No masses seen. Kidneys: Normal size, contour and axis. There is a 2 mm nonobstructing stone in the left kidney. No masses seen. Abdominal Aorta: Abdominal portion non-dilated. Bowel: No obstruction or bowel wall thickening. The appendix is distended measuring 1.7 cm in diamete r. There is enhancement of the wall and appendicoliths are present. Ifeoma appendiceal inflammation i s seen consistent with acute appendicitis. Peritoneal Cavity: No ascites, collection or mesenteric inflammatory response. No free air. Lymph Nodes: Mildly enlarged lymph nodes are seen in the right lower quadrant which are likely reacti ve. Bones: Within normal limits for the patient's age. Soft Tissues: There is a small fat containing umbilical hernia. PELVIS: Bladder: Symmetric distention, no gross wall thickening. Reproductive Organs: Within normal limits for the patient's age. Lymph Nodes: Within normal limits. Bones: Within normal limits for the patient's age. IMPRESSION: Findings consistent with acute appendicitis with appendicoliths. No free air or abscess. RADIATION DOSE DELIVERED: 816.48mGy.cm Total DLP DATA REPOSITORY: All CT scans at this facility are submitted to the National Radiology Data Registry (NRDR) Dose Index Registry (DIR) with the [employer] (ACR). RADIATION OPTIMIZATION: All CT scans at this facility use at least one of these dose optimization te chniques: automated exposure control; mA and/or kV adjustment per patient size (includes targeted exa ms where dose is matched to clinical indication); or iterative reconstruction.
--- NOTE | 2024-10-18 20:34 | ED.GENADUL_ITS ---
Discharge Plan Disposition Patient Disposition: Admit to [facility] Condition: Stable Discharge Details Clinical Impression: Acute appendicitis Primary Care Provider: Destiney Alexander ED Provider: Jazmine Thomas Home Meds and New Rx's Prescriptions: No Action dextroamphetamine-amphetamine [Adderall] 5 mg tablet 5 mg PO PRN Rx Instructions: up to 2 tabs quetiapine [Seroquel] 50 mg tablet 100 mg PO DAILY Rx Instructions: take up to 250 mg hs lamotrigine 100 mg tablet 200 mg PO DAILY multivitamin Tablet 1 tab PO DAILY lithium carbonate 450 mg tablet extended release 900 mg PO DAILY bupropion HCl [Wellbutrin XL] 300 mg tablet extended release 24 hr 300 mg PO QPM lisdexamfetamine [Vyvanse] 30 mg capsule 30 mg PO DAILY albuterol sulfate [Ventolin HFA] 90 mcg/actuation HFA aerosol inhaler 2 puff INHALATION Q6H PRN Patient Comments: INHALE 2 PUFFS BY MOUTH EVERY 4 TO 6 HOURS NEEDED fluticasone propionate 44 mcg/actuation HFA aerosol inhaler 2 inh inhalation BID PRN Rx Instructions: administer with spacer HPI General Mode of arrival: ambulatory . Date/Time Provider Initiated Documentation: 10/18/24 20:21 . Limitations to Documentation: no limitations . Information obtained by: patient, RN notes reviewed and old records reviewed . HPI Narrative: 39-year-old female presents with right lower quadrant abdominal pain which she describes as cramping since 10:00 this morning. No radiation. Reports some nausea no vomiting no diarrhea. Denies any dysuria. She does have a history of a cholecystectomy. Denies any vaginal discharge or bleeding last normal menstrual period was October 10. She is not currently on control. No medications prior to arrival. Related Data Home Medications ?Medication ?Instructions ?Recorded ?Confirmed lamotrigine 100 mg tablet 200 mg PO DAILY 01/27/20 10/18/24 bupropion HCl 300 mg 24 hr tablet, 300 mg PO QPM 02/03/20 10/18/24 extended release (Wellbutrin XL) multivitamin 1 tab PO DAILY 08/10/20 10/18/24 lisdexamfetamine 30 mg capsule 30 mg PO DAILY 07/08/21 10/18/24 (Vyvanse) dextroamphetamine-amphetamine 5 mg 5 mg PO PRN 06/13/22 10/18/24 tablet (Adderall) lithium carbonate 450 mg 900 mg PO DAILY 01/11/24 10/18/24 tablet,extended release quetiapine 50 mg tablet (Seroquel) 100 mg PO DAILY 01/18/24 10/18/24 albuterol sulfate 90 mcg/actuation 2 puff inhalation Q6H PRN 03/05/24 10/18/24 aerosol inhaler (Ventolin HFA) fluticasone propionate 44 2 inh inhalation BID PRN 03/05/24 10/18/24 mcg/actuation HFA aerosol inhaler Allergies Allergy/AdvReac Type Severity Reaction Status Date / Time prochlorperazine edisylate AdvReac SHAKES/COLD Verified 10/18/24 20:17 (From Compazine) SWEATS General Stated Complaint: Abd Prob MARCO: 3 Review of Systems All systems reviewed & are unremarkable except as noted in HPI and below Gastrointestinal Gastrointestinal: Reports as per HPI and Reports abdominal pain Exam Narrative Exam Narrative: Constitutional: Alert and oriented x3. Appears stated age. Normal body habitus. Head: Normocephalic, no trauma. Eyes: Pupils PERRL, Red reflex noted, EOM's intact. Eyelids symmetrical without lesions, discharge, or swelling. ENT: Bilateral TM's WNL, External ear normal to inspection, no mastoid TTP, swelling, or erythema, Nasal turbinates WNL, no nasal discharge. Normal dentition, Posterior pharynx WNL, no exudate. Chest: RRR, Normal S1, S2, distal pulses intact. Resp: Lungs clear to auscultation bilaterally, no wheezes, rales, or rhonchi. Abdomen: Soft, non-distended, Normoactive bowel sounds all 4 quads. Musculoskeletal: Normal gait, Moves all 4 extremities without difficulty. Skin: No suspicious rashes or lesions. Capillary refill less than 2 sec. Neurologic: Cranial nerves II-XII intact. Alert and oriented x 3. Motor: No deficits noted. Sensory: Intact bilaterally all 4 extremities. Hematologic/Lymphatic: No ecchymosis, no lymphadenopathy. Course Vital Signs Vital signs: Vital Signs Temperature 36.8 C 10/18/24 20:15 Pulse 82 10/18/24 20:15 Respiratory Rate 16 10/18/24 20:15 Blood Pressure 137/82 10/18/24 20:15 Pulse Oximetry 98 10/18/24 20:15 Temperature 36.8 C 10/18/24 20:19 Temperature Source Oral 10/18/24 20:15 Pulse 82 10/18/24 20:19 Respiratory Rate 16 10/18/24 20:15 Blood Pressure 137/82 10/18/24 20:15 Blood Pressure Position Sitting 10/18/24 20:15 Pulse Oximetry 98 10/18/24 20:15 Oxygen Delivery Method Room Air 10/18/24 20:15 Oxygen Flow Rate 0 10/18/24 20:15 Pain Level 8 10/18/24 20:15 Medical Decision Making 39-year-old female presents with right lower quadrant abdominal pain which she describes as cramping since 10:00 this morning. No radiation. Reports some nausea no vomiting no diarrhea. Denies any dysuria. She does have a history of a cholecystectomy. Denies any vaginal discharge or bleeding last normal menstrual period was October 10. She is not currently on control. No medications prior to arrival. Workup ordered including CBC CMP lipase urinalysis urine test. CT abdomen pelvis to rule out appendicitis versus ovarian cyst versus gastroenteritis versus bowel obstruction. Patient made n.p.o. last time she was around 1130 today. She did receive Zofran and morphine. CT shows acute appendicitis. Please see result below. Surgery paged. [phone]: Spoke with Dr. Ching regarding patient case in details at this time we have no bed capacity for admission. He request patient stay in the emergency department overnight and he will come and see her and take her to the OR early tomorrow morning. Discussed plan with patient and nursing staffing coordinator they verbalized understanding and are in agreement with the plan. Patient made n.p.o., Dr. Skelton does recommend Zosyn every 6 hours which was ordered. Will also put in some as needed pain medications including morphine and Zofran and maintenance fluids at 150 an hour of normal saline. Care is to be handed off to oncoming provider Fe Pacheco pending surgery consult in the a.m. and most likely 2 OR for acute appendicitis. Patient was requesting her nighttime Seroquel which was given to her 150 mg p.o. Medical Records Medical records reviewed: Yes I reviewed the patient's medical records. Imaging Data Radiologic Study: Imaging: CT Scan Radiologist's impression: CT ABDOMEN PELVIS W 02/10/2020 12:03 PM FINDINGS: Lungs: Lung bases clear. Liver: Normal appearing liver. Gallbladder and biliary ducts: Prior cholecystectomy with postop biliary dilatation. Pancreas: Normal appearing pancreas. Spleen: Normal appearing spleen. Adrenal glands: Normal appearing adrenal glands. Kidneys and ureters: Normal appearing kidneys. No hydronephrosis. No obstructing ureteral stones. Stomach and bowel: No oral contrast. Stomach partially distended with ingested material. No small bowel dilatation to suggest obstruction. Appendix: Calcified appendicoliths with a 10 mm obstructing appendicolith at the appendiceal ostium on image 61 of series 8. Fluid-filled dilatation of the upstream appendix to 1.5 cm with adjacent hazy fat stranding in keeping with acute appendicitis. Intraperitoneal space: No gross ascites or free air. Vasculature: Normal caliber abdominal aorta. Lymph nodes: Scattered small mesenteric lymph nodes, nonspecific. Urinary bladder: Urinary bladder collapsed and not well evaluated but grossly unremarkable, as seen. Reproductive: Anteverted uterus, normal in size. Normal-sized ovaries. 2.5 cm dominant right ovarian follicle, image 71 of series 8. Bones/joints: No acute fracture seen among the bones of the abdomen or pelvis. Soft tissues: Tiny fat-containing ventral hernia at the umbilicus, doubtful clinical significance IMPRESSION: 1. Acute appendicitis. 10 mm obstructing appendicolith. Surgery consultation recommended. 2. 2.5 cm dominant right ovarian follicle. No gross free pelvic fluid. Thank you for allowing us to participate in the care of your patient. Dictated and Authenticated by: Cody Douglass MD Lab Data Lab results reviewed: Yes I reviewed the patient's lab results. Labs: Laboratory Tests Range/Units 10/18/24 10/18/24 20:28 21:00 WBC (4.4-10.8) 10^3/uL 13.10 H RBC (3.93-5.22) 10^6/uL 5.03 Hgb (11.2-15.7) g/dL 14.7 Hct (36.0-46.0) % 44.4 MCV (80-95) fL 88 MCH (27.0-33.0) pg 29.2 MCHC (32.0-36.0) % 33.1 RDW (11.7-14.6) % 12.3 Plt Count (130-400) 10^3/uL 356 MPV (8.0-11.0) fL 10.3 Immature Gran % % 0.3 Neutrophils % % 67.7 Lymphocytes % % 23.7 Monocytes % % 6.7 Eosinophils % % 1.4 Basophils % % 0.2 Nucleated RBC % (0.0-0.3) % 0.0 Absolute Neutrophils (1.2-6.7) 10^3/uL 8.87 H Absolute Lymphocytes (1.2-3.4) 10^3/uL 3.10 Absolute Monocytes (0.1-0.8) 10^3/uL 0.88 H Absolute Eosinophils (0.0-0.7) 10^3/uL 0.18 Absolute Basophils (0.0-0.2) 10^3/uL 0.03 Sodium (136-145) mmol/L 140 Potassium (3.5-5.1) mmol/L 3.9 Chloride (98-107) mmol/L 104 Carbon Dioxide (21.0-32.0) mmol/L 31.4 Anion Gap (3-11) mmol/L 4.6 BUN (7-18) mg/dL 12 Creatinine (0.55-1.02) mg/dL 1.0 Est GFR (CKD-EPI 2020) (mL/min/1.73m2) 74.41 Glucose (74-106) mg/dL 89 Calcium (8.5-10.1) mg/dL 9.7 Magnesium (1.8-2.4) mg/dL 1.9 Total Bilirubin (0.2-1.0) mg/dL 0.23 AST (15-37) U/L 15 ALT (14-59) U/L 63 H Alkaline Phosphatase (46-116) U/L 117 H Total Protein (6.4-8.2) g/dL 7.6 Albumin (3.4-5.0) g/dL 3.8 Lipase (<78) U/L 59 Urine Color (Yellow) Yellow Urine Clarity (Clear) Clear Urine pH (5-8) 6.5 Ur Specific [place] (1.005-1.025) 1.015 Urine Protein (Neg-Trace) mg/dL Negative Urine Ketones (Negative) mg/dL Negative Urine Blood (Negative) Negative Urine Nitrite (Negative) Negative Urine Bilirubin (Negative) Negative Urine Urobilinogen (Up to 0.2) mg/dL 0.2 Ur Leukocyte Esterase (Negative) Negative Urine Glucose (Negative) mg/dL Negative Quality:SDOH Health Related Social Needs: No Data to Display PFSH All Active Problems (Updated 10/18/24 @ 22:14 by Jazmine Thomas NP) Acute appendicitis (Acute) Metrorrhagia (Acute) 01/27/20 per note from PCP,stopped control pills 2 weeks ago HSV (herpes simplex virus) infection (Acute) Pain in female pelvis (Acute 04/18/15) Abnormal EKG (Acute) Insomnia (Acute 07/30/17) BMI 37.0-37.9, adult (Acute 07/23/15) Generalized anxiety disorder (Chronic) Medical History Cholelithiasis Bipolar 1 disorder anxiety component. Patient referred to psychiatry for consultation regarding medications Anxiety (07/30/17) ASCUS with positive high risk HPV cervical Screening pap at time of . Colpo 08/19/2018 benign. Recommend Pap/HPV in 1 year. Surgical History S/P laparoscopy pt. questions this Endoscopy Family History Mother Mental disorder depression Father Diabetes IDDM Sister Mental disorder depression Sister No problems noted. Brother No problems noted. Brother No problems noted. 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 Pets and animals: Yes (dog) Pets and animals: dog(s) Current gender identity: female Do you feel safe at home: Yes Do you feel safe in your relationship?: Yes Female Reproductive History Menstrual control method: other (pt is unsure of plans for contraception after delivery.) History History 9 Para 3 Hx # Term Pregnancies 4 Multiple births 0 Hx # Pregnancies 0 Ectopic pregnancies 0 AB induced Hx Number of Living Children 4 AB spontaneous Past Pregnancies Del. Date GA/Weeks # Preg Succ Route Wgt Sex Labor Lgth Anesth esia Location Prov Complic 07/03/18 39 No vaginal 3401.943 g Female Delivery Date: 07/03/18 Last Updated by: Devan Rascon without complications. Patient had an epidural. Infant's name is spelled Viki.
[2024-10-18 20:39] LABS: Abs Immature Grans 0.04 10^3/uL (0.0-0.06); Absolute Eosinophil Count 0.18 10^3/uL (0.0-0.7); Absolute Monocyte Count 0.88 10^3/uL (0.1-0.8); Basophils % 0.2 %; Eosinophils % 1.4 %; HCT 44.4 % (36.0-46.0); HGB 14.7 g/dL (11.2-15.7); Immature Grans % 0.3 %; Lymphocytes % 23.7 %; MCH 29.2 pg (27.0-33.0); MCHC 33.1 % (32.0-36.0); MCV 88 fL (80-95); MPV 10.3 fL (8.0-11.0); Monocytes % 6.7 %; Neutrophils % 67.7 %; Platelet Count 356 10^3/uL (130-400); RBC 5.03 10^6/uL (3.93-5.22); RDW 12.3 % (11.7-14.6); RDW-SD 40.2 fL
[2024-10-18 20:44] LABS: Absolute Basophil Count 0.03 10^3/uL (0.0-0.2); Absolute Neutrophil Count 8.87 10^3/uL (1.2-6.7)
[2024-10-18] MEDS: Normal Saline - Diluent 50 ML VIAL IJ (21:04)
[2024-10-18] MEDS: Omnipaque 350 MG/ML 100 ML BTL IJ (21:05)
[2024-10-18] MEDS: Ondansetron 4 MG/2 ML VIAL IVP (21:06)
[2024-10-18] MEDS: MORPHine 10 MG/ML VIAL 2 MG IVP ×2 (21:07→23:24)
[2024-10-18 21:12] LABS: Lipase 59 U/L (<78)
[2024-10-18 21:27] LABS: Bilirubin Negative (Negative); Blood Negative (Negative); Clarity Clear (Clear); Glucose Negative (Negative); Ketones Negative (Negative); Leukocyte Esterase Negative (Negative); Nitrite Negative (Negative); Specific Gravity 1.015 (1.005-1.025); Urobilinogen 0.2 mg/dL (Up to 0.2); pH 6.5 (5-8)
[2024-10-18 21:41] LABS: ALT 63 U/L (14-59); AST 15 U/L (15-37); Albumin 3.8 g/dL (3.4-5.0); Alkaline Phosphatase 117 U/L (46-116); Anion Gap 4.6 mmol/L (3-11); BUN 12 mg/dL (7-18); Bilirubin, Total 0.23 mg/dL (0.2-1.0); CO2 31.4 mmol/L (21.0-32.0); Calcium 9.7 mg/dL (8.5-10.1); Chloride 104 mmol/L (98-107); Estimated GFR 74.41 (mL/min/1.73m2); Glucose 89 mg/dL (74-106); Magnesium 1.9 mg/dL (1.8-2.4); Potassium 3.9 mmol/L (3.5-5.1); Sodium 140 mmol/L (136-145); Total Protein 7.6 g/dL (6.4-8.2)
--- NOTE | 2024-10-18 21:42 | DI.VRAD_ITS ---
Addendum created by Cody Douglass MD on 10/18/2024 9:43:58 PM EST: This case was discussed personally with DORIAN RILEY at 9:43 PM EST on 10/18/2024. Initial report created on 10/18/2024 9:41:35 PM EST: PROCEDURE INFORMATION: Exam: CT Abdomen And Pelvis With Contrast Exam date and time: 10/18/2024 9:02 PM Age: 39 years old Clinical indication: Abdominal pain TECHNIQUE: Imaging protocol: Computed tomography of the abdomen and pelvis with contrast. Contrast material: OMNIPAQUE 350; Contrast volume: 100 ml; Contrast route: INTRAVENOUS (IV); COMPARISON: CT ABDOMEN PELVIS W 02/10/2020 12:03 PM FINDINGS: Lungs: Lung bases clear. Liver: Normal appearing liver. Gallbladder and biliary ducts: Prior cholecystectomy with postop biliary dilatation. Pancreas: Normal appearing pancreas. Spleen: Normal appearing spleen. Adrenal glands: Normal appearing adrenal glands. Kidneys and ureters: Normal appearing kidneys. No hydronephrosis. No obstructing ureteral stones. Stomach and bowel: No oral contrast. Stomach partially distended with ingested material. No small bowel dilatation to suggest obstruction. Appendix: Calcified appendicoliths with a 10 mm obstructing appendicolith at the appendiceal ostium on image 61 of series 8. Fluid-filled dilatation of the upstream appendix to 1.5 cm with adjacent hazy fat stranding in keeping with acute appendicitis. Intraperitoneal space: No gross ascites or free air. Vasculature: Normal caliber abdominal aorta. Lymph nodes: Scattered small mesenteric lymph nodes, nonspecific. Urinary bladder: Urinary bladder collapsed and not well evaluated but grossly unremarkable, as seen. Reproductive: Anteverted uterus, normal in size. Normal-sized ovaries. 2.5 cm dominant right ovarian follicle, image 71 of series 8. Bones/joints: No acute fracture seen among the bones of the abdomen or pelvis. Soft tissues: Tiny fat-containing ventral hernia at the umbilicus, doubtful clinical significance. IMPRESSION: 1. Acute appendicitis. 10 mm obstructing appendicolith. Surgery consultation recommended. 2. 2.5 cm dominant right ovarian follicle. No gross free pelvic fluid. Dictated and Authenticated by: Cody Douglass MD. Orderin Martha Lucero MD
[2024-10-18] MEDS: QUEtiapine 100 MG TAB 150 MG PO (22:38)
[2024-10-18] MEDS: Normal Saline 1,000 ML 150 ML IV (23:42)
[2024-10-19] VITALS (31 sets, daily range): BP systolic 90–126; BP diastolic 46–73; PULSE 48–89; RESP 12–31; TEMP 36.2–36.6; O2SAT 79–100; BMI 32.3
[2024-10-19] MEDS: MORPHine 10 MG/ML VIAL 2 MG IVP ×2 (02:04→05:43)
[2024-10-19] MEDS: Normal Saline 1,000 ML 150 ML IV (06:19)
--- NOTE | 2024-10-19 06:48 | ED.PROG_ITS ---
Date of service: 10/18/24 Time of Service: 23:30 Medical Decision Making Stable overnight. Plan remains surg to see this morning. Will be signed out to oncoming physician. Quality:[facility] Health Related Social Needs: No Data to Display Discharge Plan Disposition Patient Disposition: Admit to [facility] Condition: Stable Discharge Details Clinical Impression: Acute appendicitis Primary Care Provider: Destiney Alexander ED Provider: Wendy Fernandez Home Meds and New Rx's Prescriptions: No Action dextroamphetamine-amphetamine [Adderall] 5 mg tablet 5 mg PO PRN Rx Instructions: up to 2 tabs quetiapine [Seroquel] 50 mg tablet 100 mg PO DAILY Rx Instructions: take up to 250 mg hs lamotrigine 100 mg tablet 200 mg PO DAILY multivitamin Tablet 1 tab PO DAILY lithium carbonate 450 mg tablet extended release 900 mg PO DAILY bupropion HCl [Wellbutrin XL] 300 mg tablet extended release 24 hr 300 mg PO QPM lisdexamfetamine [Vyvanse] 30 mg capsule 30 mg PO DAILY albuterol sulfate [Ventolin HFA] 90 mcg/actuation HFA aerosol inhaler 2 puff INHALATION Q6H PRN Patient Comments: INHALE 2 PUFFS BY MOUTH EVERY 4 TO 6 HOURS NEEDED fluticasone propionate 44 mcg/actuation HFA aerosol inhaler 2 inh inhalation BID PRN Rx Instructions: administer with spacer
--- NOTE | 2024-10-19 08:26 | ANES.PREOP_ITS ---
General Info Date of Service Date Performed: 10/19/24 Height: 5 ft 6 in Weight: 90.718 kg Body Mass Index (BMI): 32.3 Surgical Procedure: Operation Date: 10/19/24 09:40 Proposed Procedure Side Surgeon p Appendectomy Laparoscopic Jono Ceja MD Meds Allergies and Home Medications Allergies Allergy/AdvReac Type Severity Reaction Status Date / Time prochlorperazine edisylate AdvReac SHAKES/COLD Verified 10/18/24 20:17 (From Compazine) SWEATS Home Medication ?Medication ?Instructions ?Recorded lamotrigine 100 mg tablet 200 mg PO DAILY 01/27/20 bupropion HCl 300 mg 24 hr tablet, 300 mg PO QPM 02/03/20 extended release (Wellbutrin XL) multivitamin 1 tab PO DAILY 08/10/20 lisdexamfetamine 30 mg capsule 30 mg PO DAILY 07/08/21 (Vyvanse) dextroamphetamine-amphetamine 5 mg 5 mg PO PRN 06/13/22 tablet (Adderall) lithium carbonate 450 mg 900 mg PO DAILY 01/11/24 tablet,extended release quetiapine 50 mg tablet (Seroquel) 100 mg PO DAILY 01/18/24 albuterol sulfate 90 mcg/actuation 2 puff inhalation Q6H PRN 03/05/24 aerosol inhaler (Ventolin HFA) fluticasone propionate 44 2 inh inhalation BID PRN 03/05/24 mcg/actuation HFA aerosol inhaler Current Visit Medications: Current Medications Generic Name Dose Route Start Last Admin Trade Name Freq PRN Reason Stop Dose Admin Piperacillin Sod/Tazobactam 50 mls @ 100 mls/hr 10/19/24 04:00 10/19/24 05:53 Sod 3.375 gm/ Dextrose/Water IVPB Infused Q6H CAROL Infusion Sodium Chloride 1,000 mls @ 150 mls/hr 10/18/24 22:00 10/19/24 06:19 Saline 1000ml Bag IV 150 mls/hr INFUSION CAROL Administration IV Miscellaneous Supplies 1 each 10/18/24 20:45 Iv Access-Emergency Dept IV DIRECTED CAROL Iohexol 100 ml 10/18/24 21:15 10/18/24 21:05 Omnipaque 350 Mg/Ml 100 Ml Btl IJ 11/17/24 23:59 100 ml DIRECTED CAROL Administration Morphine Sulfate 2 mg 10/18/24 21:53 10/19/24 05:43 Morphine 10 Mg/Ml Vial IVP 2 mg Q2H PRN Administration Ondansetron HCl 4 mg 10/18/24 21:53 Ondansetron 4 Mg/2 Ml Vial IVP Q8H PRN Nausea Sodium Chloride 0 ml 10/18/24 20:33 Normal Saline Flush 10 Ml Syr IVP PRN PRN Sodium Chloride 0 ml 10/19/24 08:30 Normal Saline Flush 10 Ml Syr IVP BID CAROL Sodium Chloride 0 ml 10/18/24 20:33 Normal Saline 10 Ml Vial IJ DIRECTED PRN Sodium Chloride 50 ml 10/18/24 21:15 10/18/24 21:04 Normal Saline - Diluent 50 Ml Vial IJ 50 ml .FOR DI USE CAROL Administration PFSH Active Problems Active Problems: Problem Status Onset Code Acute appendicitis Acute K35.80 Metrorrhagia Acute N92.1 HSV (herpes simplex virus) infection Acute B00.9 Pain in female pelvis Acute 04/18/15 R10.2 Abnormal EKG Acute R94.31 Insomnia Acute 07/30/17 G47.00 BMI 37.0-37.9, adult Acute 07/23/15 Z68.37 Generalized anxiety disorder Chronic F41.1 Hx of opioid abuse Resolved Medical History Medical History Cholelithiasis Bipolar 1 disorder anxiety component. Patient referred to psychiatry for consultation regarding medications Anxiety (07/30/17) ASCUS with positive high risk HPV cervical Screening pap at time of . Colpo 08/19/2018 benign. Recommend Pap/HPV in 1 year. Surgical History Surgical History S/P laparoscopy pt. questions this Endoscopy Tobacco Smoking/Tobacco Use Status: Former Tobacco Use Passive smoking exposure: No Alcohol Alcohol Intake: current Alcohol intake frequency: a few times a month Alcohol type: hard liquor Substance Use Substance use: Never Substance use type: does not use Details: quit smoking years ago Prental History History 2 9 Para 3 Hx # Term Pregnancies 4 Multiple births 0 Hx # Pregnancies 0 Ectopic pregnancies 0 AB induced Hx Number of Living Children 4 AB spontaneous Past Pregnancies Del. Date GA/Weeks # Preg Succ Route Wgt Sex Labor Lgth Anesth esia Location Prov Complic 07/03/18 39 No vaginal 3401.943 g Female Delivery Date: 07/03/18 Last Updated by: Devan Rascon without complications. Patient had an epidural. 's name is spelled Viki. Vital Signs and Lab Results Vital Signs Most Recent Vital Signs in EMR: Most Recent Vital Signs Temp Pulse Resp BP Pulse Ox 36.5 C 77 14 90/46 L 98 10/19/24 08:12 10/19/24 08:12 10/19/24 08:12 10/19/24 08:12 10/19/24 08:12 Lab Results 10/18/24 20:28 10/18/24 20:28 Blood Type / Crossmatch: 2 No Data to Display Complete Blood Count: 2 White Blood Count 13.10 10^3/uL (4.4-10.8) H 10/18/24 20:28 Red Blood Count 5.03 10^6/uL (3.93-5.22) 10/18/24 20:28 Hemoglobin 14.7 g/dL (11.2-15.7) 10/18/24 20: Hematocrit 44.4 % (36.0-46.0) 10/18/24 20:28 Platelet Count 356 10^3/uL (130-400) 10/18/24 20:28 Complete Metabolic Panel: 2 Sodium 140 mmol/L (136-145) 10/18/24 20:28 Potassium 3.9 mmol/L (3.5-5.1) 10/18/24 20: Chloride 104 mmol/L (98-107) 10/18/24 20:28 Carbon Dioxide 31.4 mmol/L (21.0-32.0) 10/18/24 20: BUN 12 mg/dL (7-18) 10/18/24 20: Creatinine 1.0 mg/dL (0.55-1.02) 10/18/24 20:28 Est GFR (CKD-EPI 2020) 74.41 (mL/min/1.73m2) 10/18/24 20:28 Magnesium 1.9 mg/dL (1.8-2.4) 10/18/24 20:28 Calcium 9.7 mg/dL (8.5-10.1) 10/18/24 20:28 Albumin 3.8 g/dL (3.4-5.0) 10/18/24 20:28 Glucose 89 mg/dL (74-106) 10/18/24 20:28 Liver Function Panel: 2 Alanine Aminotransferase (ALT/SGPT) 63 U/L (14-59) H 10/18/24 2 0:28 Aspartate Amino Transf (AST/SGOT) 15 U/L (15-37) 10/18/24 20:28 Coagulation Panel: 2 No Data to Display Cardiac Panel: 2 No Data to Display Arterial Blood Gas: 2 No Data to Display Venous Blood Gas: 2 No Data to Display Pancreas Panel: 2 Lipase 59 U/L (<78) 10/18/24 20:28 Thyroid Panel: 2 No Data to Display Infectious Disease: 2 No Data to Display Blood Cultures: 2 No Data to Display Toxicology Panel: 2 No Data to Display Panel: 2 No Data to Display Anesthesia Assessment and Plan Anesthesia History Personal History: No History of Anesthesia Complications Family History: No Family History of Anesthesia Complications Exercise Tolerance Exercise Tolerance: Metabolic Equivalents>4 Pertinent Negatives Pertinent Negatives: No Symptoms of GERD Cardiac & Pulmonary Exam Cardiac Exam: Normal S1/S2 Heart Sounds Pulmonary Exam: Clear Bilateral Breath Sounds Implantable Cardiac Device Does patient have a Pacemaker or an ICD?: No Airway Exam Known Difficult Airway: No Mallampati Class: 2 Mouth Opening: Normal (> 3cm) Thyromental Distance: Greater than 3 cm Neck Range of Motion: Full ROM Neck Circumference: Normal Teeth Condition: Normal Dentition ASA Classification ASA Score: ASA 2 Emergency Case?: No NPO Status NPO Status: NPO Clears >2 hours, Solids >8 hours Status Status: Negative HCG Anesthesia Plan Resuscitation Status: Full Code Anesthesia Technique: General Anesthesia Airway Planned: Endotracheal Tube Monitors Used: Standard Monitors
--- NOTE | 2024-10-19 08:41 | SCONE_ITS ---
Date of service: 10/19/24 Time of Service: 08:46 Assessment and Plan Assessment and plan (1) Acute appendicitis: Status: Acute Assessment and plan: 39-year-old woman with acute appendicitis. She is hemodynamically stable. Her abdominal exam is focal but not diffusely tender. Laparoscopic appendectomy is indicated. Antibiotic therapy is not an option considering the appendicolith is present. We discussed the indications, the likely benefits as well as the minimal but possible risks of appendectomy. She wishes to proceed. Overall plan: Laparoscopic appendectomy History of Present Illness Narrative: The patient is a 39-year-old woman who developed right lower quadrant abdominal pain over the last 24-36 hours. She has never had pain like that before. She has had gallbladder surgery in the past. CT scan showed acute appendicitis with appendicolith. No evidence of perforation. She has a small leukocytosis. PFSH All Active Problems (Updated 10/18/24 @ 22:14 by Jazmine Thomas NP) Acute appendicitis (Acute) Metrorrhagia (Acute) 01/27/20 per note from PCP,stopped control pills 2 weeks ago HSV (herpes simplex virus) infection (Acute) Pain in female pelvis (Acute 04/18/15) Abnormal EKG (Acute) Insomnia (Acute 07/30/17) BMI 37.0-37.9, adult (Acute 07/23/15) Generalized anxiety disorder (Chronic) Medical History Cholelithiasis Bipolar 1 disorder anxiety component. Patient referred to psychiatry for consultation regarding medications Anxiety (07/30/17) ASCUS with positive high risk HPV cervical Screening pap at time of . Colpo 08/19/2018 benign. Recommend Pap/HPV in 1 year. Surgical History S/P laparoscopy pt. questions this Endoscopy Family History Mother Mental disorder depression Father Diabetes IDDM Sister Mental disorder depression Sister No problems noted. Brother No problems noted. Brother No problems noted. 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 Pets and animals: Yes (dog) Pets and animals: dog(s) Current gender identity: female Do you feel safe at home: Yes Do you feel safe in your relationship?: Yes Female Reproductive History Menstrual control method: other (pt is unsure of plans for contraception after delivery.) History History 2 9 Para 3 Hx # Term Pregnancies 4 Multiple births 0 Hx # Pregnancies 0 Ectopic pregnancies 0 AB induced Hx Number of Living Children 4 AB spontaneous Past Pregnancies Del. Date GA/Weeks # Preg Succ Route Wgt Sex Labor Lgth Anesth esia Location Prov Complic 07/03/18 39 No vaginal 7 lb 8 oz Female Delivery Date: 07/03/18 Last Updated by: Devan Rascon without complications. Patient had an epidural. Infant's name is spelled Viki. Exam Narrative Exam Narrative: Gen: Non-toxic, comfortable and interactive Neuro: Alert and oriented x3 Psych: Good mood and affect. Good insight and understanding into condition. Chest: Non-labored breathing, no wheezing, no visible shortness of breath. Heart: Regular Abdomen: Soft, nondistended with focal tenderness in the right lower quadrant at McBurney's point. There is tap tenderness and focal peritoneal signs in the right lower quadrant. The other 3 quadrants are completely soft and not tender. Results Last Vital Signs Temp 97.7 F 10/19/24 08:12 Pulse 77 10/19/24 08:12 Resp 14 10/19/24 08:12 BP 90/46 L 10/19/24 08:12 Pulse Ox 98 10/19/24 08:12 Labs 10/18/24 20:28 10/18/24 20:28 Labs: Laboratory Results - last 24 hr 10/18/24 10/18/24 20:28 21:00 WBC 13.10 H RBC 5.03 Hgb 14.7 Hct 44.4 MCV 88 MCH 29.2 MCHC 33.1 RDW 12.3 Plt Count 356 MPV 10.3 Immature Gran % 0.3 Neutrophils % 67.7 Lymphocytes % 23.7 Monocytes % 6.7 Eosinophils % 1.4 Basophils % 0.2 Nucleated RBC % 0.0 Absolute Neutrophils 8.87 H Absolute Lymphocytes 3.10 Absolute Monocytes 0.88 H Absolute Eosinophils 0.18 Absolute Basophils 0.03 Sodium 140 Potassium 3.9 Chloride 104 Carbon Dioxide 31.4 Anion Gap 4.6 BUN 12 Creatinine 1.0 Est GFR (CKD-EPI 2020) 74.41 Glucose 89 Calcium 9.7 Magnesium 1.9 Total Bilirubin 0.23 AST 15 ALT 63 H Alkaline Phosphatase 117 H Total Protein 7.6 Albumin 3.8 Lipase 59 Urine Color Yellow Urine Clarity Clear Urine pH 6.5 Ur Specific [place] 1.015 Urine Protein Negative Urine Ketones Negative Urine Blood Negative Urine Nitrite Negative Urine Bilirubin Negative Urine Urobilinogen 0.2 Ur Leukocyte Esterase Negative Urine Glucose Negative
[2024-10-19] MEDS: Bupivacaine 0.25% Pres-Free 30 ML VIAL (09:30)
[2024-10-19] MEDS: Bupivacaine LIPOSOME/PF 133 MG/10 ML VIAL IJ (09:30)
--- NOTE | 2024-10-19 09:45 | APP_PTH ---
PATIENT: Solange Nichols LOC: [facility] U#:[id number] AGE/SX: 39/F ROOM: RE10/19/[address]: Jono Ceja : 1985 BED: DIS: 10/19/2024 SPEC #: [id number] RECD: 10/19/24 12:58 STATUS: EDD REQ #: [id number] ARTI: 10/19/24 09:[address]: Jono Ceja DEPT: Surgical Specimen RECD BY: Ava Barajas ENTERED: 10/19/24 12:59 SP TYPE: Appendix OTHR DR: Destiney Alexander Tissues: 1 - APPENDIX NOT INCIDENTAL Procedures: GROSS AND MICRO LEVEL 3 Comments: [id number]
--- NOTE | 2024-10-19 10:01 | W.PM.OP ---
Operative Note Operative Note Refer to Anesthesia Record Procedure Description: Procedures performed: 1. Laparoscopic appendectomy 2. Laparoscopic TAP block bilateral Pre-op diagnosis: Acute appendicitis Postoperative diagnosis: Acute appendicitis Surgeon: Naeem Ceja Anesthesia: Zina / [employer] Operator: Gwendolyn Indication for procedure: 39-year-old woman with acute right lower quadrant abdominal pain for 24-36 hours and cross-sectional imaging showing a non-? perforated appendicitis with appendicoliths. FINDINGS: A non-perforated but very firm, indurated and inflamed appendix was removed in standard fashion. Appendicoliths were ensured inside the specimen and staple line on cecum healthy and non-inflamed. Specimens: 1. Appendix Complications: None Blood loss: 5 cc Urine output: Not measured Implants/drains: None Procedure in detail: Patient gave written consent and was in agreement with the indications, the likely benefits as well as the potential risks of surgery. She was taken back to the operating room where anesthesia was administered which was tolerated well. She was positioned supine on the operating room table and we then prepped and draped in sterile fashion. We confirmed DVT prophylaxis as well as antibiotics had been administered. When we were all in agreement with our timeout we started the procedure. A mixture of Marcaine and Exparel was injected at the umbilicus. A stab incision was made and a 5mm optiview trocar used to enter. Insufflation was performed which was tolerated well. 2 more trocars were placed under direct visualization in the suprapubic location in the left lower quadrant. Local anesthetic was also given in each of the sites. Next I did a lap-guided TAP block on each side under visualization. We turned our attention to the right lower quadrant where a inflamed, indurated but nonperforated appendix was easily identified. Using the LigaSure I divided the mesoappendix all the way up to the base of the appendix at the level of the cecum. With gentle, blunt, sweeping strokes using my grasper I ensured that there was no appendicolith present at/in the base and the base also appeared healthy and viable. I passed the stapler across this and divided the appendix. It was placed in an Endo Catch bag and removed from the abdominal cavity. The specimen was passed off the back table and placed in formalin. The 12 mm port site was then closed with 0 Vicryl in the fascia using a Mihai-Piyush. I rechecked for hemostasis in the right lower quadrant and it was excellent. The staple line looked perfect. I released/evacuated the pneumoperitoneum and then removed the other 5 mm trocar. The skin was closed with running Monocryl and Dermabond was placed on top of each site. Patient tolerated the procedure well. The sponge, instruments and sharps counts were correct x3 at the end of the procedure. She was extubated and taken to the PACU in hemodynamically stable condition. Date of Procedure: 10/19/24
[2024-10-19] MEDS: fentaNYL 100 MCG/2 ML VIAL IVP (10:17)
--- NOTE | 2024-10-19 10:43 | W.PM.DSUDISC ---
Date of service: 10/19/24 Discharge Plan Disposition Patient Disposition: Home Condition: Good Discharge Details Reason For Visit: Appendectomy Attending Provider: Jono Ceja Primary Care Provider: Destiney Alexander Home Meds and New Rx's Prescriptions: No Action dextroamphetamine-amphetamine [Adderall] 5 mg tablet 5 mg PO PRN Rx Instructions: up to 2 tabs quetiapine [Seroquel] 50 mg tablet 100 mg PO DAILY Rx Instructions: take up to 250 mg hs lamotrigine 100 mg tablet 200 mg PO DAILY multivitamin Tablet 1 tab PO DAILY lithium carbonate 450 mg tablet extended release 900 mg PO DAILY bupropion HCl [Wellbutrin XL] 300 mg tablet extended release 24 hr 300 mg PO QPM lisdexamfetamine [Vyvanse] 30 mg capsule 30 mg PO DAILY albuterol sulfate [Ventolin HFA] 90 mcg/actuation HFA aerosol inhaler 2 puff INHALATION Q6H PRN Patient Comments: INHALE 2 PUFFS BY MOUTH EVERY 4 TO 6 HOURS NEEDED fluticasone propionate 44 mcg/actuation HFA aerosol inhaler 2 inh inhalation BID PRN Rx Instructions: administer with spacer Discharge Instructions Additional Instructions: Incisions: Keep clean and dry but they do not need to be covered. It is okay to shower but no tub bathing for 1 week. You can peel the glue off after 1 week. Activity: As tolerated. There are no restrictions. Return to work, as tolerated in the next few days. If you need a work note call the surgery office. Diet: Regular diet as tolerated Medications: Resume all of your usual/regular home medications Follow-up: Follow-up is optional. If you are having any issues or concerns call the surgery office immediately. If you want to have a routine follow-up that is perfectly fine and you can call and schedule an. If everything is otherwise going well, you do not need to follow-up. Pain control: Take Tylenol, 1000 mg, every 6 hours on a schedule for the next 3 days. You can use ibuprofen in addition to Tylenol if needed. Overall: Symptoms should not be worsening. If you have any difficulty breathing or you have return of symptoms of brought you to the hospital or your pain is otherwise worsening each day and you should call the doctor's office or come into the hospital to be checked out. Activity:: Activity as Tolerated Diet:: As Tolerated Discharge Orders Discharge Orders: Discharge Order (Routine); Ordered 10/19/24 Ordered By: Jono Ceja DS: Diagnosis Discharge Diagnosis (1) Acute appendicitis: Status: Acute Asessment and Plan: Stable after lap appy. Can be DC-ed home.
--- NOTE | 2024-10-19 13:54 | W.ANESPOSTOP ---
Postoperative Evaluation Date, Time and Location Date Performed: 10/19/24 Time Performed: 11:40 Patient Location: Day Surgery Unit Vital Signs Most Recent Imported Vital Signs: Most Recent Vital Signs Temp Pulse Resp BP Pulse Ox 36.2 C L 85 16 118/65 98 10/19/24 11:38 10/19/24 11:38 10/19/24 11:38 10/19/24 11:38 10/19/24 11:38 Pain Score Most Recent Pain Score: Most Recent Pain Score Pain Level 4 10/19/24 11:38 Assessment Mental Status: Awake (Alert & Oriented to Patient Baseline) Airway and Respiratory Function: Patent airway with normal (patient baseline) respiratory exam Cardiovascular Function: Hemodynamically Stable Hydration Status: Adequately Hydrated Nausea & Vomiting: No Nausea or Vomiting Pain: Pain is tolerable per patient Peripheral Nerve Block: Patient did not receive a nerve block
== END 2024-10-19 12:02 | disposition home or self-care (01) ==
LOC: ER 10-19 08:49 → SUR 10-19 08:54
PROVIDERS: Registered Nurse Emergency; Emergency Provider Student in an Organized Health Care Education/Training Program; PCP Nurse Practitioner Family; Visit Provider Student in an Organized Health Care Education/Training Program
PROC: 0DTJ4ZZ Resection of Appendix, Percutaneous Endoscopic Approach (ICD-10-PCS; CPT 44970; principal; 2024-10-19 09:30)
DX: K35.80 Unspecified acute appendicitis (principal)
CPT/HCPCS: 44970; 64488; 00123; 80053; 83690; 74177; 81003; 83735; 85025; 88304; J0131; J0665; J0666; J1100; J1644; J1790; J1885; J2250; J2270; J2405; J2543; J2704; J3010; J3490

== ENCOUNTER 2025-02-08 08:45 | Outpatient (REF) | payer MEDICAID, SELFPAY ==
[2025-02-08 14:22] LABS: Abs Immature Grans 0.01 10^3/uL (0.0-0.06); Absolute Basophil Count 0.02 10^3/uL (0.0-0.2); Absolute Eosinophil Count 0.14 10^3/uL (0.0-0.7); Absolute Lymphocyte Count 2.39 10^3/uL (1.2-3.4); Absolute Monocyte Count 0.56 10^3/uL (0.1-0.8); Absolute Neutrophil Count 3.27 10^3/uL (1.2-6.7); Basophils % 0.3 %; Eosinophils % 2.2 %; HCT 42.9 % (36.0-46.0); HGB 14.1 g/dL (11.2-15.7); Immature Grans % 0.2 %; Lymphocytes % 37.4 %; MCH 29.6 pg (27.0-33.0); MCHC 32.9 % (32.0-36.0); MCV 90 fL (80-95); MPV 11.3 fL (8.0-11.0); Monocytes % 8.8 %; Neutrophils % 51.1 %; Platelet Count 283 10^3/uL (130-400); RBC 4.77 10^6/uL (3.93-5.22); RDW 11.9 % (11.7-14.6); RDW-SD 39.6 fL; WBC 6.39 10^3/uL (4.4-10.8)
[2025-02-08 14:58] LABS: ALT 28 U/L (14-59); AST 12 U/L (15-37); Albumin 3.8 g/dL (3.4-5.0); Alkaline Phosphatase 92 U/L (46-116); Anion Gap 7.8 mmol/L (3-11); BUN 14 mg/dL (7-18); Bilirubin, Total 0.2 mg/dL (0.2-1.0); CO2 29.2 mmol/L (21.0-32.0); CREATININE 1.1 mg/dL (0.55-1.02); Calcium 9.9 mg/dL (8.5-10.1); Chloride 103 mmol/L (98-107); Estimated GFR 66.37 (mL/min/1.73m2); Glucose 85 mg/dL (74-106); Potassium 4.6 mmol/L (3.5-5.1); Sodium 140 mmol/L (136-145); TSH (W/Ref FT4) 2.23 uIU/mL (0.36-3.74); Vitamin B12 863 pg/mL (193-986)
[2025-02-08 22:04] LABS: Lithium (UVM) 0.6 mmol/L (0.6-1.2)
== END 2025-02-08 08:46 | disposition home or self-care (01) ==
LOC: NCHCN 08:45
PROVIDERS: PCP Nurse Practitioner Family; Visit Provider Nurse Practitioner Family
DX: Z51.81 Encounter for therapeutic drug level monitoring (principal)
CPT/HCPCS: 80053; 80178; 82607; 84443; 85025